=== PATIENT | female | born 1995 | race Two or more races ===

== ENCOUNTER 2022-09-13 14:12 | Emergency (ER) | payer OTHER, MEDICAID, SELFPAY ==
[2022-09-13 14:22] VITALS: BP 126/85; PULSE 68; RESP 16; TEMP 36.8; O2SAT 99; BMI 37.4
--- NOTE | 2022-09-13 14:24 | ED_ITS ---
HPI - General Adult General Chief complaint: Abdominal Pain <CATHERINE Nguyen Last Filed: 09/13/22 14:25> Stated complaint: Stomach Pain Vomiting <CATHERINE Nguyen Last Filed: 09/13/22 14:25> Time Seen by Provider: 09/13/22 17:06 <CATHERINE Nguyen - Last Filed: 09/13/22 14:25> Source: patient <CATHERINE Antunez Last Filed: 09/13/22 18:00> Mode of arrival: ambulatory <CATHERINE Antunez Last Filed: 09/13/22 18:00> Limitations: no limitations <CATHERINE Antunez Last Filed: 09/13/22 18:00> History of Present Illness HPI narrative: 27 yo female presents to the ER for evaluation of epigastric abdominal pain, nausea, vomiting and diarrhea that started when she woke up this morning. She had shrimp and broccoli last night, felt well when she went to bed. Today when she woke up she had nausea, 1 episode of vomiting and several episodes of watery, nonbloody diarrhea. She also had some intermittent upper abdominal burning pains which have improved throughout the day. She has not tried to take anything by mouth since this morning. No fever or chills. No URI symptoms. No known sick contacts. <CATHERINE Antunez - Last Filed: 09/13/22 18:00> MD complaint: N/V/D <CATHERINE Antunez Last Filed: 09/13/22 18:00> Onset (ago): hour(s) <CATHERINE Antunez Last Filed: 09/13/22 18:00> Location: abdomen (epigastric) <CATHERINE Antunez Last Filed: 09/13/22 18:00> Radiation: non-radiation <CATHERINE Antunez Last Filed: 09/13/22 18:00> Severity: moderate <CATHERINE Antunez Last Filed: 09/13/22 18:00> Quality: burning and aching <CATHERINE Antunez Last Filed: 09/13/22 18:00> Pain Consistency: intermittent <CATHERINE Antunez Last Filed: 09/13/22 18:00> Relieving factors: none <CATHERINE Antunez Last Filed: 09/13/22 18:00> Exacerbating factors: none <CATHERINE Antunez Last Filed: 09/13/22 18:00> Associated symptoms: loss of appetite, malaise, nausea/vomiting and weakness <CATHERINE Antunez Last Filed: 09/13/22 18:00> Treatments prior to arrival: none <CATHERINE Antunez Last Filed: 09/13/22 18:00> Related Data Home medications: Previous Rx's Medication Instructions Recorded ondansetron 4 mg disintegrating 4 mg PO Q8H PRN nausea and 09/13/22 tablet vomiting #10 tabs <CATHERINE Nguyen Last Filed: 09/13/22 14:25> Allergies/adverse reactions: Allergies Allergy/AdvReac Type Severity Reaction Status Date / Time No Known Allergies Allergy Unverified 02/13/20 17:41 [No Known Allergies*] <CATHERINE Nguyen Last Filed: 09/13/22 14:25> Review of Systems Review of Systems: Yes all other systems are reviewed and are negative <CATHERINE Antunez Last Filed: 09/13/22 18:00> [facility] Social History Social History: Social History Advance Directives: No Advance Directives Information Provided: No <CATHERINE Nguyen Last Filed: 09/13/22 14:25> Physical Exam ED Vital Signs: Vital Signs - 24 hr 09/13/22 14:22 Temperature 98.2 F Pulse Rate 68 Respiratory Rate 16 Blood Pressure 126/85 Pulse Oximetry 99 Oxygen Delivery Method Room Air BMI result Body Mass Index 37.4 <CATHERINE Nguyen Last Filed: 09/13/22 14:25> Vital Signs - 24 hr 09/13/22 14:22 Temperature 98.2 F Pulse Rate 68 Respiratory Rate 16 Blood Pressure 126/85 Pulse Oximetry 99 Oxygen Delivery Method Room Air BMI result Body Mass Index 37.4 <CATHERINE Antunez Last Filed: 09/13/22 18:00> Appearance: Alert. Oriented X3. No acute distress. Head: normocephalic, atraumatic. Eyes: Pupils equal, round and reactive to light. ENT: Pharynx normal. No tonsillar swelling or exudate. Neck: Normal inspection. Neck supple. CVS: Normal heart rate and rhythm. Pulses normal. Respiratory: No respiratory distress. Breath sounds normal. Abdomen: Soft and nontender. No rebound or guarding. +BS x4 Skin: Skin warm and dry. Normal skin color. Normal skin turgor. No rashes. Extremities: No lower extremity edema. No joint swelling. Neuro/psych: Oriented X 3. No motor deficit. No sensory deficit. CN II-XII intact. Normal speech and cognition. <CATHERINE Antunez - Last Filed: 09/13/22 18:00> Course Course Course Narrative: This is an RME: Additional HPI, ROS, PE not included below will be deferred to primary provider. 19-year-old female male presents with severe sudden epigastric pain <CATHERINE Nguyen - Last Filed: 09/13/22 14:25> Medications Administered Discontinued Medications Generic Name Dose Route Start Last Admin Trade Name Freq PRN Reason Stop Dose Admin Al Hydroxide/Mg Hydroxide 30 ml 09/13/22 17:06 09/13/22 17:36 Magnesium Hydrox/Alum Hydrox 30 Ml Oral.Susp PO 09/13/22 17:07 30 ml ONCE ONE Administration Famotidine 20 mg 09/13/22 17:06 09/13/22 17:36 Famotidine 20 Mg Tablet PO 09/13/22 17:07 20 mg ONCE ONE Administration Lidocaine HCl 15 ml 09/13/22 17:06 09/13/22 17:36 Lidocaine Hcl Viscous 2 % 15 Ml Solution MUCOUS MEM 09/13/22 17:07 15 ml ONCE ONE Administration Ondansetron HCl 4 mg 09/13/22 17:06 09/13/22 17:37 Ondansetron Odt 4 Mg Tab.Rapdis TRANSLINGU 09/13/22 17:07 4 mg ONCE ONE Administration <CATHERINE Nguyen - Last Filed: 09/13/22 14:25> Medications Administered Discontinued Medications Generic Name Dose Route Start Last Admin Trade Name Freq PRN Reason Stop Dose Admin Al Hydroxide/Mg Hydroxide 30 ml 09/13/22 17:06 09/13/22 17:36 Magnesium Hydrox/Alum Hydrox 30 Ml Oral.Susp PO 09/13/22 17:07 30 ml ONCE ONE Administration Famotidine 20 mg 09/13/22 17:06 09/13/22 17:36 Famotidine 20 Mg Tablet PO 09/13/22 17:07 20 mg ONCE ONE Administration Lidocaine HCl 15 ml 09/13/22 17:06 09/13/22 17:36 Lidocaine Hcl Viscous 2 % 15 Ml Solution MUCOUS MEM 09/13/22 17:07 15 ml ONCE ONE Administration Ondansetron HCl 4 mg 09/13/22 17:06 09/13/22 17:37 Ondansetron Odt 4 Mg Tab.Rapdis TRANSLINGU 09/13/22 17:07 4 mg ONCE ONE Administration <CATHERINE Antunez - Last Filed: 09/13/22 18:00> Medical Decision Making Medical Decision Making MDM Narrative: 27 yo female presenting to the ER for evaluation of N/V/D and epigastric abd pain that started today after eating shrimp last night. No blood in her stool. No current pain. VSS and lab workup is unremarkable. She was given zofran, GI cocktail and was able to tolerate PO. No episodes of diarrhea in the ER. She is feeling better. Most likely gastroenteritis, stable for d/c home with antiemetics and supportive care. <CATHERINE Antunez - Last Filed: 09/13/22 18:00> Differential Diagnosis Differential Diagnoses: The differential diagnosis associated with the presentation includes <CATHERINE Antunez - Last Filed: 09/13/22 18:00> viral gastroenteritis, bacterial gastroenteritis, covid, flu, food poisoning, gastritis, PUD, cdiff <CATHERINE Antunez - Last Filed: 09/13/22 18:00> Lab Data [facility] Lab Attestation statement: I reviewed the patient's lab results. <CATHERINE Antunez - Last Filed: 09/13/22 18:00> Result Diagrams: 09/13/22 15:30 09/13/22 15:30 <CATHERINE Nguyen - Last Filed: 09/13/22 14:25> Labs: Lab Results 04/18/23 04/18/23 04/18/23 Range/Units 15:23 15:23 15:23 WBC (4.8-10.8) X10*3/uL RBC (4.20-5.50) X10*6/uL Hgb (12.0-16.0) g/dl Hct (37.0-47.0) % MCV (80.0-98.0) fL MCH (27.0-33.0) pg MCHC (31.0-35.0) g/dl RDW (11.0-16.0) % Plt Count (160-400) X10*3/uL MPV (9.4-12.3) fL Immature Gran % (Auto) (0.0-0.4) % Neut % (Auto) (45-73) % Lymph % (Auto) (20-40) % [place] % (Auto) (2-11) % Eos % (Auto) (0-4) % Baso % (Auto) (0-2) % Lymph # (Auto) (1.2-4.9) X10*3/uL [place] # (Auto) (0.1-1.2) X10*3/uL Eos # (Auto) (0.0-0.4) X10*3/uL Baso # (Auto) (0.0-0.2) X10*3/uL Abs Immat Gran (auto) (0.00-0.03) X10*3/uL Absolute Neuts (auto) (2.0-8.3) x10*3/uL Absolute Nucleated RBC (0.0-0.012) X10*3/uL Nucleated RBC % (auto) (0.0-0.2) /100WBC Sodium (135-145) mmol/L Potassium (3.3-5.1) mmol/L Chloride (96-108) mmol/L Carbon Dioxide (22-29) mmol/L Anion Gap (12-20) BUN (9-16) mg/dL Creatinine (0.5-1.4) mg/dL Estim Creat Clear Calc Estimated GFR Random Glucose (60-115) mg/dL Calcium (8.4-10.2) mg/dL Magnesium (1.6-2.6) mg/dL Total Bilirubin (0.0-1.0) mg/dL AST (5-31) U/L ALT (0-31) U/L Alkaline Phosphatase (39-117) U/L Total Protein (6.5-8.0) g/dL Albumin (3.5-5.0) g/dL Lipase (8-78) U/L Urine Color Yellow Urine Appearance Clear Urine pH 5.5 (5.0-9.0) Ur Specific Miracle 1.015 (1.005-1.025) Urine Protein Negative (Neg-Trace) mg/dL Urine Glucose (UA) Negative (Negative) mg/dL Urine Ketones Negative (Negative) mg/dL Urine Blood Trace H (Negative) Urine Nitrite Negative (Negative) Ur Leukocyte Esterase Trace H (Negative) Urine RBC 0-2 (0-2) /HPF Urine WBC 0-5 (0-5) /HPF Ur Squamous Epith Cells 0-2 (0-2) /HPF Urine Bacteria None Seen (None Seen) Hyaline Casts 0-2 (0-2) /LPF Urine Test NEGATIVE (NEGATIVE) COVID-19 (MICHEL) Negative (Negative) COVID-19 Clin Com See Note 09/13/22 09/13/22 Range/Units 15:30 15:30 WBC 8.6 (4.8-10.8) X10*3/uL RBC 4.34 (4.20-5.50) X10*6/uL Hgb 13.8 (12.0-16.0) g/dl Hct 39.5 (37.0-47.0) % MCV 91.0 (80.0-98.0) fL MCH 31.8 (27.0-33.0) pg MCHC 34.9 (31.0-35.0) g/dl RDW 12.4 (11.0-16.0) % Plt Count 227 (160-400) X10*3/uL MPV 11.7 (9.4-12.3) fL Immature Gran % (Auto) 0.2 (0.0-0.4) % Neut % (Auto) 74.8 H (45-73) % Lymph % (Auto) 19.7 L (20-40) % [place] % (Auto) 3.8 (2-11) % Eos % (Auto) 1.3 (0-4) % Baso % (Auto) 0.2 (0-2) % Lymph # (Auto) 1.7 (1.2-4.9) X10*3/uL [place] # (Auto) 0.3 (0.1-1.2) X10*3/uL Eos # (Auto) 0.1 (0.0-0.4) X10*3/uL Baso # (Auto) 0.0 (0.0-0.2) X10*3/uL Abs Immat Gran (auto) 0.02 (0.00-0.03) X10*3/uL Absolute Neuts (auto) 6.4 (2.0-8.3) x10*3/uL Absolute Nucleated RBC 0.000 (0.0-0.012) X10*3/uL Nucleated RBC % (auto) 0.0 (0.0-0.2) /100WBC Sodium 139 (135-145) mmol/L Potassium 4.0 (3.3-5.1) mmol/L Chloride 106 (96-108) mmol/L Carbon Dioxide 24 (22-29) mmol/L Anion Gap 13 (12-20) BUN 12 (9-16) mg/dL Creatinine 0.59 (0.5-1.4) mg/dL Estim Creat Clear Calc 179.9 Estimated GFR > 60 Random Glucose 80 (60-115) mg/dL Calcium 9.3 (8.4-10.2) mg/dL Magnesium 1.7 (1.6-2.6) mg/dL Total Bilirubin 0.7 (0.0-1.0) mg/dL AST 15 (5-31) U/L ALT 12 (0-31) U/L Alkaline Phosphatase 33 L (39-117) U/L Total Protein 7.9 (6.5-8.0) g/dL Albumin 4.5 (3.5-5.0) g/dL Lipase 28 (8-78) U/L Urine Color Urine Appearance Urine pH (5.0-9.0) Ur Specific Miracle (1.005-1.025) Urine Protein (Neg-Trace) mg/dL Urine Glucose (UA) (Negative) mg/dL Urine Ketones (Negative) mg/dL Urine Blood (Negative) Urine Nitrite (Negative) Ur Leukocyte Esterase (Negative) Urine RBC (0-2) /HPF Urine WBC (0-5) /HPF Ur Squamous Epith Cells (0-2) /HPF Urine Bacteria (None Seen) Hyaline Casts (0-2) /LPF Urine Test (NEGATIVE) COVID-19 (MICHEL) (Negative) COVID-19 Clin Com <CATHERINE Nguyen - Last Filed: 09/13/22 14:25> Lab Results 09/13/22 09/13/22 09/13/22 Range/Units 15:23 15:23 15:23 WBC (4.8-10.8) X10*3/uL RBC (4.20-5.50) X10*6/uL Hgb (12.0-16.0) g/dl Hct (37.0-47.0) % MCV (80.0-98.0) fL MCH (27.0-33.0) pg MCHC (31.0-35.0) g/dl RDW (11.0-16.0) % Plt Count (160-400) X10*3/uL MPV (9.4-12.3) fL Immature Gran % (Auto) (0.0-0.4) % Neut % (Auto) (45-73) % Lymph % (Auto) (20-40) % [place] % (Auto) (2-11) % Eos % (Auto) (0-4) % Baso % (Auto) (0-2) % Lymph # (Auto) (1.2-4.9) X10*3/uL [place] # (Auto) (0.1-1.2) X10*3/uL Eos # (Auto) (0.0-0.4) X10*3/uL Baso # (Auto) (0.0-0.2) X10*3/uL Abs Immat Gran (auto) (0.00-0.03) X10*3/uL Absolute Neuts (auto) (2.0-8.3) x10*3/uL Absolute Nucleated RBC (0.0-0.012) X10*3/uL Nucleated RBC % (auto) (0.0-0.2) /100WBC Sodium (135-145) mmol/L Potassium (3.3-5.1) mmol/L Chloride (96-108) mmol/L Carbon Dioxide (22-29) mmol/L Anion Gap (12-20) BUN (9-16) mg/dL Creatinine (0.5-1.4) mg/dL Estim Creat Clear Calc Estimated GFR Random Glucose (60-115) mg/dL Calcium (8.4-10.2) mg/dL Magnesium (1.6-2.6) mg/dL Total Bilirubin (0.0-1.0) mg/dL AST (5-31) U/L ALT (0-31) U/L Alkaline Phosphatase (39-117) U/L Total Protein (6.5-8.0) g/dL Albumin (3.5-5.0) g/dL Lipase (8-78) U/L Urine Color Yellow Urine Appearance Clear Urine pH 5.5 (5.0-9.0) Ur Specific Miracle 1.015 (1.005-1.025) Urine Protein Negative (Neg-Trace) mg/dL Urine Glucose (UA) Negative (Negative) mg/dL Urine Ketones Negative (Negative) mg/dL Urine Blood Trace H (Negative) Urine Nitrite Negative (Negative) Ur Leukocyte Esterase Trace H (Negative) Urine RBC 0-2 (0-2) /HPF Urine WBC 0-5 (0-5) /HPF Ur Squamous Epith Cells 0-2 (0-2) /HPF Urine Bacteria None Seen (None Seen) Hyaline Casts 0-2 (0-2) /LPF Urine Test NEGATIVE (NEGATIVE) COVID-19 (IMCHEL) Negative (Negative) COVID-19 Clin Com See Note 09/13/22 09/13/22 Range/Units 15:30 15:30 WBC 8.6 (4.8-10.8) X10*3/uL RBC 4.34 (4.20-5.50) X10*6/uL Hgb 13.8 (12.0-16.0) g/dl Hct 39.5 (37.0-47.0) % MCV 91.0 (80.0-98.0) fL MCH 31.8 (27.0-33.0) pg MCHC 34.9 (31.0-35.0) g/dl RDW 12.4 (11.0-16.0) % Plt Count 227 (160-400) X10*3/uL MPV 11.7 (9.4-12.3) fL Immature Gran % (Auto) 0.2 (0.0-0.4) % Neut % (Auto) 74.8 H (45-73) % Lymph % (Auto) 19.7 L (20-40) % [place] % (Auto) 3.8 (2-11) % Eos % (Auto) 1.3 (0-4) % Baso % (Auto) 0.2 (0-2) % Lymph # (Auto) 1.7 (1.2-4.9) X10*3/uL [place] # (Auto) 0.3 (0.1-1.2) X10*3/uL Eos # (Auto) 0.1 (0.0-0.4) X10*3/uL Baso # (Auto) 0.0 (0.0-0.2) X10*3/uL Abs Immat Gran (auto) 0.02 (0.00-0.03) X10*3/uL Absolute Neuts (auto) 6.4 (2.0-8.3) x10*3/uL Absolute Nucleated RBC 0.000 (0.0-0.012) X10*3/uL Nucleated RBC % (auto) 0.0 (0.0-0.2) /100WBC Sodium 139 (135-145) mmol/L Potassium 4.0 (3.3-5.1) mmol/L Chloride 106 (96-108) mmol/L Carbon Dioxide 24 (22-29) mmol/L Anion Gap 13 (12-20) BUN 12 (9-16) mg/dL Creatinine 0.59 (0.5-1.4) mg/dL Estim Creat Clear Calc 179.9 Estimated GFR > 60 Random Glucose 80 (60-115) mg/dL Calcium 9.3 (8.4-10.2) mg/dL Magnesium 1.7 (1.6-2.6) mg/dL Total Bilirubin 0.7 (0.0-1.0) mg/dL AST 15 (5-31) U/L ALT 12 (0-31) U/L Alkaline Phosphatase 33 L (39-117) U/L Total Protein 7.9 (6.5-8.0) g/dL Albumin 4.5 (3.5-5.0) g/dL Lipase 28 (8-78) U/L Urine Color Urine Appearance Urine pH (5.0-9.0) Ur Specific Miracle (1.005-1.025) Urine Protein (Neg-Trace) mg/dL Urine Glucose (UA) (Negative) mg/dL Urine Ketones (Negative) mg/dL Urine Blood (Negative) Urine Nitrite (Negative) Ur Leukocyte Esterase (Negative) Urine RBC (0-2) /HPF Urine WBC (0-5) /HPF Ur Squamous Epith Cells (0-2) /HPF Urine Bacteria (None Seen) Hyaline Casts (0-2) /LPF Urine Test (NEGATIVE) COVID-19 (MICHEL) (Negative) COVID-19 Clin Com <CATHERINE Antunez - Last Filed: 09/13/22 18:00> External Record Review External record reviewed: Prior outpatient labs and Prior outpatient radiology <CATHERINE Antunez - Last Filed: 09/13/22 18:00> Tests considered The following testing was considered but not selected: Ct scan considered however PE is benign, nontender abd GI panel considered however no stool in the several hours patient was in the ER <CATHERINE Antunez - Last Filed: 09/13/22 18:00> Prescription Management I considered prescription management with: Antibiotic and Other (antiemetic) <CATHERINE Antunez - Last Filed: 09/13/22 18:00> Critical Care Time Critical Care Time Critical Care Time: No <CATHERINE Antunez Last Filed: 09/13/22 18:00> Discharge Plan Discharge Clinical Impression: Gastroenteritis <CATHERINE Nguyen Last Filed: 09/13/22 14:25> Patient Disposition: Home, Self-Care <CATHERINE Nguyen Last Filed: 09/13/22 14:25> Instructions: Gastroenteritis (DC) <CATHERINE Nguyen Last Filed: 09/13/22 14:25> Additional Instructions: You lab workup today was unremarkable. Your urine test was negative for infection and . You most likely have a viral GI bug also known as gastroenteritis. Treatment is supportive care, symptoms usually resolve on their own in 48-72 hours. Recommend rest and plenty of oral hydration. Stick to a bland diet like soup and toast while you are not feeling well. Take the prescribed medication as needed for nausea. Recommend over the counter Pepto Bismol or Imodium for upset stomach and diarrhea. Follow up with your doctor as needed. If you develop new or worsening symptoms call 911 or come back to the ER for further evaluation. <CATHERINE Nguyen - Last Filed: 09/13/22 14:25> Prescriptions: New ondansetron 4 mg tablet,disintegrating 4 mg PO Q8H PRN (Reason: nausea and vomiting) Qty: 10 0RF <CATHERINE Nguyen - Last Filed: 09/13/22 14:25> Stand Alone Forms: Work/School Release <CATHERINE Nguyen - Last Filed: 09/13/22 14:25>
[2022-09-13 15:36] LABS: MANUAL DIFF FLAG NO
[2022-09-13 15:39] LABS: Appearance Urine Clear; Color Urine Yellow; Glucose Urine UA Negative (Negative); Leukocyte Esterase Urine Trace (Negative); Nitrite Urine Negative (Negative); PH 5.5 (5.0-9.0); Specific Gravity - Urine 1.015 (1.005-1.025); UMIC TRIGGER UACC YES; Urine Blood Trace (Negative); Urine Ketones Negative (Negative); Urine Protein Negative (Neg-Trace)
[2022-09-13 15:41] LABS: Bacteria Urine None Seen (None Seen); Hyaline Casts Urine 0-2 /LPF (0-2); RBC Urine 0-2 /HPF (0-2); Squamous Epithelial Cell Urine 0-2 /HPF (0-2); UPreg QC Valid YES; Urine Pregnancy NEGATIVE (NEGATIVE); WBC Urine 0-5 /HPF (0-5)
[2022-09-13 16:01] LABS: Basophils Percent Auto 0.2 % (0-2); Eosinophils Absolute Auto 0.1 X10*3/uL (0.0-0.4); Eosinophils Percent Auto 1.3 % (0-4); Hematocrit 39.5 % (37.0-47.0); Hemoglobin 13.8 g/dl (12.0-16.0); Imm Gran Abs Auto 0.02 X10*3/uL (0.00-0.03); Imm Gran Pct Auto 0.2 % (0.0-0.4); Lymphocytes Absolute Auto 1.7 X10*3/uL (1.2-4.9); Lymphocytes Percent Auto 19.7 % (20-40); Mean Corpuscular HGB Conc 34.9 g/dl (31.0-35.0); Mean Corpuscular Hemoglobin 31.8 pg (27.0-33.0); Mean Platelet Volume 11.7 fL (9.4-12.3); Monocytes Absolute Auto 0.3 X10*3/uL (0.1-1.2); Monocytes Percent Auto 3.8 % (2-11); Neutrophils Absolute Auto 6.4 x10*3/uL (2.0-8.3); Neutrophils Percent Auto 74.8 % (45-73); Platelet Count 227 X10*3/uL (160-400); Red Blood Count 4.34 X10*6/uL (4.20-5.50); Red Cell Distribution Width 12.4 % (11.0-16.0); White Blood Count 8.6 X10*3/uL (4.8-10.8)
[2022-09-13 16:02] LABS: Alanine Aminotransferase 12 U/L (0-31); Albumin Level 4.5 g/dL (3.5-5.0); Alkaline Phosphatase 33 U/L (39-117); Anion Gap 13 (12-20); Aspartate Amino Transferase 15 U/L (5-31); Bilirubin Total 0.7 mg/dL (0.0-1.0); Blood Urea Nitrogen 12 mg/dL (9-16); Calcium 9.3 mg/dL (8.4-10.2); Carbon Dioxide 24 mmol/L (22-29); Chloride 106 mmol/L (96-108); Creatinine Clr Calc Pharmacy 179.9; Estimated Glomerular Filt Rate > 60; Glucose Random 80 mg/dL (60-115); Lipase 28 U/L (8-78); Magnesium 1.7 mg/dL (1.6-2.6); Sodium 139 mmol/L (135-145); Total Protein 7.9 g/dL (6.5-8.0)
[2022-09-13 16:14] LABS: COVID-19 Test Negative (Negative); IDNOW Serial# BCCEAD1C
[2022-09-13] MEDS: Famotidine 20 MG TABLET PO (17:36)
[2022-09-13] MEDS: Magnesium Hydrox/Alum Hydrox 30 ML ORAL.SUSP PO (17:36)
[2022-09-13] MEDS: Lidocaine HCl Viscous 2 % 15 ML SOLUTION MUCOUS MEM (17:36)
[2022-09-13] MEDS: Ondansetron ODT 4 MG TAB.RAPDIS TRANSLINGU (17:37)
== END 2022-09-13 18:07 | disposition home or self-care (01) ==
PROVIDERS: Physician Assistant; Emergency Provider Emergency Medicine Emergency Medical Services
DX: K52.9 Noninfective gastroenteritis and colitis, unspecified (principal); Z20.822 Contact with and (suspected) exposure to COVID-19; R10.13 Epigastric pain
CPT/HCPCS: 80053; 81001; 81025; 83690; 83735; 85025; 87635; 99282; 99283

== ENCOUNTER 2023-07-20 22:07 | Emergency (ER) | payer OTHER, SELFPAY ==
--- NOTE | ~2023-07-20 | XR_ITS ---
EXAMINATION: XR CHEST CLINICAL INFORMATION: Cough. COMPARISON: None available. TECHNIQUE: 2 views of the chest were obtained. FINDINGS: No significant abnormality is noted involving the heart, lungs, mediastinum, bony thorax or soft tissues. XR/XR chest 2V IMPRESSION: Unremarkable chest examination.
[2023-07-20 22:26] VITALS: BP 130/83; PULSE 90; RESP 18; TEMP 36.8; O2SAT 99; BMI 40.0
[2023-07-20 23:11] LABS: Influenza A PCR NEGATIVE (Negative); Influenza B PCR NEGATIVE (Negative); Resp Syncy Virus RNA Qual PCR NEGATIVE (Negative); SARS COV2 PCR INHOUSE NEGATIVE (Negative)
[2023-07-21 00:20] VITALS: BP 139/85; PULSE 93; RESP 17; TEMP 36.8; O2SAT 99
--- NOTE | 2023-07-21 01:04 | ED.URI ---
HPI - URI/Sore Throat General Chief Complaint: Upper Respiratory Symptoms Stated Complaint: sob,fever,cough Time Seen by Provider: 07/21/23 00:39 Source: patient Mode of arrival: ambulatory Limitations: no limitations History of Present Illness HPI Narrative: History of sleep apnea otherwise healthy works in [employer] has been congested since yesterday with clear discharge body aches headache no other family members having dry cough patient had COVID/flu/RSV test prior to my evaluation which was negative chest x-ray also negative for infiltrate Related Data Previous Rx's Medication Instructions Recorded ondansetron 4 mg disintegrating 4 mg PO Q8H PRN nausea and 09/13/22 tablet vomiting #10 tabs cqwlvdfwkp-ifybxsdngfjgc-ulavntbn 1 tab PO Q6H PRN haeadace #20 tabs 07/21/23 50 mg-325 mg-40 mg tablet codeine 10 mg-guaifenesin 100 mg/5 10 ml PO Q6H PRN cough #237 mL 07/21/23 mL oral liquid ibuprofen 600 mg tablet 600 mg PO Q6H PRN fever or pain 07/21/23 #30 tabs Allergies Allergy/AdvReac Type Severity Reaction Status Date / Time No Known Allergies Allergy Verified 07/20/23 22:25 [No Known Allergies*] Review of Systems Review of Systems: Yes all other systems are reviewed and are negative [facility] Social History Social History Advance Directives: No Advance Directives Information Provided: Yes Physical Exam Vital Signs: Vital Signs: Last Vital Signs Temp 98.2 F 07/21/23 00:20 Pulse 93 07/21/23 00:20 Resp 17 07/21/23 00:20 BP 139/85 07/21/23 00:20 Pulse Ox 99 07/21/23 00:20 O2 Del Method Room Air 07/21/23 00:20 BMI result Body Mass Index 40.0 Appearance: Alert. Oriented X3. No acute distress. ENT: Pharynx normal. Oral Mucosa moist clear nasal discharge Neck: Normal inspection. Neck supple. CVS: Normal heart rate and rhythm. Pulses normal. Respiratory: No respiratory distress. Equal air entry bilateral, no wheezing/rales/rhonchi Skin: Skin warm and dry. Normal skin color. Normal skin turgor. Extremities: No lower extremity edema. Neuro: Oriented X 3. Medical Decision Making Differential Diagnosis Differential Diagnoses: The differential diagnosis associated with the presentation includes Viral bronchitis/COVID/RSV/flu Lab Data MDM Lab Attestation statement: I reviewed the patient's lab results. Labs: Lab Results 07/20/23 Range/Units 22:30 Influenza Type A (PCR) NEGATIVE (Negative) Influenza Type B (PCR) NEGATIVE (Negative) RSV RNA Qual (PCR) NEGATIVE (Negative) SARS-CoV-2 RNA (RT-PCR) NEGATIVE (Negative) Independent Interpretation I performed an independent interpretation of an: Plain X-Ray Radiology Impression Discussion of test interpretation with radiology: I have reviewed the radiologist's reading. Discharge Plan Discharge Clinical Impression: Upper respiratory infection Patient Disposition: Home, Self-Care Instructions: Upper Respiratory Infection (ED) Additional Instructions: Drink plenty of fluids Cough syrup as prescribed Tylenol/Motrin for headache/body aches Follow with PCP if not better Prescriptions: New hipugoeedf-ljutuqyhuummm-cvsu 50-325-40 mg tablet 1 tab PO Q6H PRN (Reason: haeadace) Qty: 20 0RF codeine-guaifenesin 10-100 mg/5 mL liquid 10 ml PO Q6H PRN (Reason: cough) Qty: 237 0RF ibuprofen 600 mg tablet 600 mg PO Q6H PRN (Reason: fever or pain) Qty: 30 0RF No Action ondansetron 4 mg tablet,disintegrating 4 mg PO Q8H PRN (Reason: nausea and vomiting) Qty: 10 0RF Stand Alone Forms: Work/School Release
[2023-07-21] MEDS: guaiFEN/Codeine SF 200/20/10ML 10 ML LIQUID PO (01:26)
[2023-07-21] MEDS: Butalb/Acetamin/Caff 50/325/40 TABLET 1 TAB PO (01:26)
== END 2023-07-21 01:29 | disposition home or self-care (01) ==
PROVIDERS: Emergency Provider Internal Medicine
DX: J06.9 Acute upper respiratory infection, unspecified (principal); R05.9 Cough, unspecified; Z11.52 Encounter for screening for COVID-19; Z20.828 Contact with and (suspected) exposure to other viral communicable diseases
CPT/HCPCS: 0241U; 71046; 99283

== ENCOUNTER → 2023-09-18 12:38 | Outpatient (BNVA) | payer MEDICAID, SELFPAY | PROVIDERS: Visit Provider Physician Assistant Surgical ==

== ENCOUNTER 2023-11-01 08:32 | Outpatient (AMB) | payer OTHER, SELFPAY ==
--- NOTE | 2023-11-01 10:51 | MHC.OFFVISWM ---
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: Details: Start time: 11.06am, End time: 11.51am ?I spent 40 minutes speaking with the patient on the phone plus an additional 5 minutes reviewing and updating records for a total of 45 minutes HPI Comments Details: Previous weight loss efforts: [employer]bal[employer], self diet and exercise Wakes up: 6am, Sleeps: 11pm Breakfast: 7am (Muffin, bagel) Lunch: 11am (sandwich, chicken) Dinner: 6-7pm (rice, beans, pasta) Snacks: none Exercise: none Fluids: Coffee (1 cup/day with cream and sugar), tea: none, soda: one per day (Pepsi), juice: 3/wk, ETOH: none PFSH Medical History (Updated 11/01/23 @ 10:53 by Maycol Perry MD) CPAP (continuous positive airway pressure) dependence Morbid obesity Telehealth Telehealth Telehealth Platform: Telephone Location of provider rendering services: practice address Location of patient: address on file Patient Identification confirmed using: Name, : Yes Telehealth method: voice only Patient verbally consented to treatment: Yes Patient verbally consented to billing insurance company: Yes Patient informed of any privacy concerns related to visit: Yes Minutes spent on Phone/Video with Pt.: 45 Assessment & Plan Assessment & Plan (1) Morbid obesity: Code(s): E66.01 - Morbid (severe) obesity due to excess calories Category: Medical Plan: 1.? Plan for lap sleeve gastrectomy. If diaphragmatic or ventral hernias are present at time of surgery, these will be repaired laparoscopically as well. Risks and complications include possible conversion to an open procedure, anastomotic leak, bleeding requiring transfusion, small bowel obstruction, , DVT and pulmonary embolism, cardiac, or pulmonary complications, as fci complications such as anastomotic ulcer, insufficient weight loss and vitamin deficiencies. I emphasized the importance of close follow-up, adherence to instructions and good communication. 2. You will receive a link of our software hoang to generate an individualized nutritional and exercise plan specific for you. Please send me a screenshot of the plans you will generate Meal to include lean meat (beef, fish, pork, turkey, chicken), or anguillan yogurt, or egg whites, or beans with a salad with olive oil and fruits (berries, pears, apples, kiwi). Avoid salt, breads, potatoes, rice, pasta, desserts. ?3. If you choose shakes, each shake would be drunk slowly, like coffee in a period of 2 hours. ?4. If you choose bars, cut each bar in 4 pieces and eat each piece in 30min ?to make each bar last 2 hours. ?5. I emphasized the importance of measuring accurately the food portion and measure it when serving the food in plate ?6. The meal portions include a specific number of forks of meat and salad. You always eat the meat portion but you can replace up to half of salad/vegetables portion with rice, potatoes or pasta, or a fruit ?if you like. The less you do it the better weight loss will be. ?7. One full-size fork is what it can be scooped on the fork without falling aside and not what can be bit with the fork. Use regular forks like those you find in a typical restaurant. ?8.? Please send me weight measurements as soon as possible and then once a week. Always include your diet and exercise plan. 9. The best choice would be to purchase a stationary bike, elliptical or treadmill at home that can track calories. Let me know if you do so I can give you an exercise plan. ?10.?It is important of avoiding and for at least 18 months postoperatively and has been discussed at the infosession. ?11. Goal is to lose at least 1.5-2lbs per week ?12. Goal to lose 10% of your weight before surgery, which is about 25lbs. Ultimate weight goal: 230lbs before surgery 13. Please follow the diet plan exactly without any change. If you don't like something about the plan or you feel hungry you need to communicate with me so I can help you revise the plan. You should not change the plan yourself. 14. To be scheduled for EGD due to history of GERD. The possibility of biopsies was discussed. Patient needs to avoid use of NSAIDs and aspirin for 1 week prior to EGD. Risks of perforation and? bleeding was discussed with the patient. This will be an outpatient procedure with IV sedation. Orders: Orders Hemoglobin A1c Today E66.01 - Morbid (severe) obesity due to excess calories, Z99.89 - Dependence on other enabling machines and devices H Pylori Breath Test Today E66.01 - Morbid (severe) obesity due to excess calories, Z99.89 - Dependence on other enabling machines and devices Complete Blood Count Auto Diff Today E66.01 - Morbid (severe) obesity due to excess calories, Z99.89 - Dependence on other enabling machines and devices Vitamin B12 and Folate Today E66.01 - Morbid (severe) obesity due to excess calories, Z99.89 - Dependence on other enabling machines and devices C Reactive Protein Today E66.01 - Morbid (severe) obesity due to excess calories, Z99.89 - Dependence on other enabling machines and devices Vitamin B1 Today E66.01 - Morbid (severe) obesity due to excess calories, Z99.89 - Dependence on other enabling machines and devices US abdomen comp w elastography Today E66.01 - Morbid (severe) obesity due to excess calories, Z99.89 - Dependence on other enabling machines and devices Insulin Today E66.01 - Morbid (severe) obesity due to excess calories, Z99.89 - Dependence on other enabling machines and devices Lipid Panel Today E66.01 - Morbid (severe) obesity due to excess calories, Z99.89 - Dependence on other enabling machines and devices IRON PROFILE Today E66.01 - Morbid (severe) obesity due to excess calories, Z99.89 - Dependence on other enabling machines and devices Comprehensive Met. Panel Today E66.01 - Morbid (severe) obesity due to excess calories, Z99.89 - Dependence on other enabling machines and devices Zinc Today E66.01 - Morbid (severe) obesity due to excess calories, Z99.89 - Dependence on other enabling machines and devices Vitamin A Today E66.01 - Morbid (severe) obesity due to excess calories, Z99.89 - Dependence on other enabling machines and devices TSH reflex Free T4 Today E66.01 - Morbid (severe) obesity due to excess calories, Z99.89 - Dependence on other enabling machines and devices Ferritin Today E66.01 - Morbid (severe) obesity due to excess calories, Z99.89 - Dependence on other enabling machines and devices Vitamin D 25-OH Total Today E66.01 - Morbid (severe) obesity due to excess calories, Z99.89 - Dependence on other enabling machines and devices XR chest 2V Today E66.01 - Morbid (severe) obesity due to excess calories, Z99.89 - Dependence on other enabling machines and devices ECG 12 lead EKG Today E66.01 - Morbid (severe) obesity due to excess calories, Z99.89 - Dependence on other enabling machines and devices FL upper GI w air Today E66.01 - Morbid (severe) obesity due to excess calories, Z99.89 - Dependence on other enabling machines and devices Referrals Behavioral Health Referral E66.01 - Morbid (severe) obesity due to excess calories, Z99.89 - Dependence on other enabling machines and devices Nutrition/Dietitian Referral E66.01 - Morbid (severe) obesity due to excess calories, Z99.89 - Dependence on other enabling machines and devices
[2023-11-01 11:00] VITALS: BMI 40.0
== END 2023-11-01 11:52 | disposition home or self-care (01) ==
PROVIDERS: Visit Provider Surgery
DX: E66.01 Morbid (severe) obesity due to excess calories (principal)
CPT/HCPCS: 99204

== ENCOUNTER → 2023-11-01 08:32 | Outpatient (BNVA) | payer MEDICAID, SELFPAY | PROVIDERS: Visit Provider Surgery ==

== ENCOUNTER 2023-11-06 12:18 | Outpatient (REF) | payer OTHER, SELFPAY ==
--- NOTE | ~2023-11-06 | XR_ITS ---
EXAMINATION: XR CHEST CLINICAL INFORMATION: Morbid (severe) obesity due to excess calories COMPARISON: Chest radiograph 07/20/2023 TECHNIQUE: 2 views of the chest were obtained. FINDINGS: The lungs are adequately expanded. No focal consolidation. No pleural effusion, overt edema or pneumothorax. The cardiomediastinal silhouette is similar to prior exam. No acute osseous abnormality. XR/XR chest 2V IMPRESSION: No acute pulmonary disease.
[2023-11-06 12:35] LABS: MANUAL DIFF FLAG NO
--- NOTE | 2023-11-06 12:39 | ECG_ITS ---
Test Reason : obesity Blood Pressure : / mmHG Vent. Rate : 064 BPM Atrial Rate : 064 BPM P-R Int : 136 ms QRS Dur : 080 ms QT Int : 382 ms P-R-T Axes : 045 012 026 degrees QTc Int : 394 ms Normal sinus rhythm Normal ECG When compared with ECG of 13-JAN-2020 16:57, No significant change was found Referred By: Maycol Perry Electronically Signed By:SHANNAN JUDGE
[2023-11-06 13:20] LABS: Basophils Percent Auto 0.4 % (0-2); Eosinophils Absolute Auto 0.1 X10*3/uL (0.0-0.4); Eosinophils Percent Auto 1.4 % (0-4); Hemoglobin 12.4 g/dl (12.0-16.0); Imm Gran Abs Auto 0.05 X10*3/uL (0.00-0.03); Imm Gran Pct Auto 0.7 % (0.0-0.4); Lymphocytes Absolute Auto 1.8 X10*3/uL (1.2-4.9); Lymphocytes Percent Auto 25.7 % (20-40); Mean Corpuscular HGB Conc 35.4 g/dl (31.0-35.0); Mean Corpuscular Hemoglobin 31.8 pg (27.0-33.0); Mean Corpuscular Volume 89.7 fL (80.0-98.0); Mean Platelet Volume 11.5 fL (9.4-12.3); Monocytes Absolute Auto 0.4 X10*3/uL (0.1-1.2); Monocytes Percent Auto 5.6 % (2-11); Neutrophils Absolute Auto 4.6 x10*3/uL (2.0-8.3); Neutrophils Percent Auto 66.2 % (45-73); Platelet Count 233 X10*3/uL (160-400); Red Cell Distribution Width 12.2 % (11.0-16.0)
[2023-11-06 14:19] LABS: Alanine Aminotransferase 11 U/L (0-31); Albumin Level 4.2 g/dL (3.5-5.0); Alkaline Phosphatase 39 U/L (39-117); Anion Gap 10 (12-20); Aspartate Amino Transferase 16 U/L (5-31); Bilirubin Total 0.5 mg/dL (0.0-1.0); Blood Urea Nitrogen 10 mg/dL (9-16); C Reactive Protein 1.51 mg/dL (< or = 0.50); Calcium 9.5 mg/dL (8.4-10.2); Carbon Dioxide 23 mmol/L (22-29); Chloride 109 mmol/L (96-108); Cholesterol 142 mg/dL (<200); Estimated Glomerular Filt Rate > 60; Glucose Random 91 mg/dL (60-115); HDL Cholesterol 29 mg/dL (>40); Iron 77 mcg/dL (30-160); LDL Cholesterol Calculated 95 mg/dL (<100); Percent Iron Saturation 30 % (15-50); Potassium 3.7 mmol/L (3.3-5.1); Sodium 138 mmol/L (135-145); Total Iron Binding Capacity 253 mcg/dL (228-428); Total Protein 8.1 g/dL (6.5-8.0); Triglycerides 91 mg/dL (<150); Unsaturated Iron Binding 176 ug/dL
[2023-11-06 14:33] LABS: Ferritin 79 ng/mL (10-122); Insulin 30 uU/mL (2-29); TSH reflex Free T4 1.57 uIU/mL (0.32-4.0); Vitamin D 25-OH Total 29.2 ng/mL (>30)
[2023-11-06 14:43] LABS: Folate 9.4 ng/mL (> or = 4.0); Vitamin B12 410 pg/mL (200-900)
[2023-11-06 19:20] LABS: Estimated Average Glucose 82 mg/dL; Hemoglobin A1c % 4.5 % (<6.0)
[2023-11-08 17:28] LABS: Zinc 57 mcg/dL (60-130)
[2023-11-09 20:18] LABS: Vitamin A 29 mcg/dL (38-98)
[2023-11-14 15:09] LABS: Vitamin B1 11 nmol/L (8-30)
== END 2023-11-06 12:19 | disposition home or self-care (01) ==
LOC: HO.LAB 12:18
PROVIDERS: Visit Provider Surgery
DX: E66.01 Morbid (severe) obesity due to excess calories (principal); Z99.89 Dependence on other enabling machines and devices
CPT/HCPCS: 36415; 71046; 80053; 80061; 82306; 82607; 82728; 82746; 83036; 83525; 83540; 84425; 84443; 84590; 84630; 85025; 86140; 93005

== ENCOUNTER → 2023-11-06 12:39 | Outpatient (BNV) | payer OTHER, SELFPAY | PROVIDERS: Visit Provider Internal Medicine | DX: E66.9 Obesity, unspecified (principal) | CPT/HCPCS: 93010 ==

== ENCOUNTER 2023-11-20 08:58 | Outpatient (AMB) | payer OTHER, SELFPAY ==
--- NOTE | 2023-11-20 08:32 | A.OFFVIS_ITS ---
VS Expanded 11/20/23 08:35 Height 5 ft 7 in Weight 246 lb BMI 38.5 Intake Visit Reasons: (TV) F/U SWL Allergies No Known Allergies [No Known Allergies*] Allergy (Verified 11/01/23 10:52) Medication List - Last Reconciled 11/20/23 by CATHERINE Cleveland cholecalciferol (vitamin D3) 125 mcg PO DAILY vitamin A palmitate 10,000 units PO DAILY zinc gluconate 10 mg PO DAILY HPI Comments Details: Patient is a 28-year-old female who returns to the office today in follow-up for preop counseling in our Surgical weight loss program. She was initially seen on 11/01/2023 with a weight of 255.2 lb and a BMI of 40. Weight today is 246 pounds with a BMI of 38.5. She has had a 9.2 pound weight loss or 3.6 % TBWL. She is using [employer] hoang. Has no questions. Meal plan: celebrate rebuild 1 scoop in 8 oz water celebrate bar meal 9 forks protein and 9 of salad/veg celebrate bar 48 oz water Exercise plan: walking outside, not tracking calories. 2 days Not using home treadmill as calories tracker was broken [facility] Medical History (Updated 11/13/23 @ 18:13 by Maycol Perry MD) CPAP (continuous positive airway pressure) dependence Morbid obesity Telehealth Telehealth Telehealth Platform: Telephone Location of provider rendering services: practice address Location of patient: address on file Patient Identification confirmed using: Name, : Yes Telehealth method: voice only Patient verbally consented to treatment: Yes Patient verbally consented to billing insurance company: Yes Patient informed of any privacy concerns related to visit: Yes Minutes spent on Phone/Video with Pt.: 15 Assessment & Plan Assessment & Plan (1) Morbid obesity: Code(s): E66.01 - Morbid (severe) obesity due to excess calories Category: Medical Plan: Patient has been using the [employer] hoang successfully although her exercise plan is lacking due to increased work requirements. Encouraged to track calories even if she is just walking outside by using the [employer] hoang. encouraged to do her treadmill even if the calorie counting is broken. She requested resen ding her vitamin-A and zinc prescriptions to an alternative pharmacy. No other complaints. Encouraged to text weight weekly and with any questions or concerns. Return to clinic 1 month. Medications: Refilled vitamin A palmitate 10,000 units PO DAILY 60 caps 0RF E50.9 - Vitamin A deficiency, unspecified zinc gluconate 10 mg PO DAILY 100 ea 0RF E60 - Dietary zinc deficiency
[2023-11-20 08:35] VITALS: BMI 38.5
== END 2023-11-20 09:21 | disposition home or self-care (01) ==
LOC: HO.HBS 08:59
PROVIDERS: Visit Provider Physician Assistant Surgical
DX: E66.01 Morbid (severe) obesity due to excess calories (principal)
CPT/HCPCS: 99213

== ENCOUNTER → 2023-11-20 08:58 | Outpatient (BNVA) | payer OTHER, SELFPAY | PROVIDERS: Visit Provider Physician Assistant Surgical | DX: E50.9 Vitamin A deficiency, unspecified (principal); E60 Dietary zinc deficiency; E66.01 Morbid (severe) obesity due to excess calories ==

== ENCOUNTER 2023-11-20 15:46 | Outpatient (AMB) | payer OTHER, SELFPAY ==
--- NOTE | 2023-11-20 15:50 | MHC.WMTHER ---
Intake Intake Visit Reasons: (TV) BH Intake Allergies No Known Allergies [No Known Allergies*] Allergy (Verified 11/01/23 10:52) [facility] Medical History (Updated 11/13/23 @ 18:13 by Maycol Perry MD) CPAP (continuous positive airway pressure) dependence Morbid obesity Behavioral Health Assessment Weight Management Therapy Therapy Notes Details Patient is looking to have weight loss surgery to help improve her health and quality of life. Pt denied any mental health treatment, she reported some mental health struggles as a teenager. She is not in therapy and has never used drugs or alcohol. Presenting Concerns Referral Source provider Reason for referral weight loss surgery evaluation Precipitating Event obesity Living Situation At risk of losing current housing? No Satisfied with current living situation? Yes Comments Patient lives with her kids ages 8, 6, and 5, and 2 years old. as well as her boyfriend. Food/Weight/Diet Expectations of change weight loss and maintenance. History/Relationship with food Pt reported that she would work all day, skip meals, and then eat food at night before bed. She would mainly eat rice, beans, chicken. Also would eat out often, and drink soda daily about two cans a day. Large coffee everyday with 12 sugars and 8 creams. History/Relationship with weight Pt is currently at her heaviest. She reported that her weight started to fluctuate after she had children. History/Relationship with dieting Herbalife, also lost weight in the past due to depression and vomitting. meal replacements for one year and lost 100lbs (down to 130lbs). Binge Eating Do you frequently eat large amounts of food in short periods of time, not feeling physically hungry? No Do you feel out of control when you eat a large amount of food in a short period of time? No Social History Family history and relationship Patient is and has 4 children. She lives with her four children and her boyfriend. 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 Cultural/Ethnic information Legal Involvement and History Current or historical involvement with the legal system? none Education Highest grade completed did not finish high school Preferred learning style Auditory, Verbal, Learn by doing and Visual Currently enrolled in educational program? No Interested in further educational program? No Educational Interests/Skills Patient stated that she works at [employer]. Employment Employment Status Enterprise Application Analyst Wants help to find employment? No Financial Situation Describe current financial situation Occasional struggle Financial assistance? None Service Service? No Mental Health and Addiction Treatment Current/Past substance abuse? No Current/Past addictive behavior concerns? No Medical and Physical Health Summary Physical exam in the last year? Yes Pain Screening Current pain? No Pain in the last few months? Yes Medications Is the patient compliant with medications? Yes Does the patient have Dodd Guardian in place? Not applicable Does the patient use complimentary health approaches? No Trauma/Abuse History History of trauma? No Questionnaires PHQ-9 Over the last 2 weeks, how often have you been bothered by any of the following problems? 1. Little interest or pleasure in doing things: several days 2. Feeling down, depressed, or hopeless: several days 3. Trouble falling or staying asleep, or sleeping too much: nearly every day 4. Feeling tired or having little energy: several days 5. Poor appetite or overeating: nearly every day 6. Feeling bad about yourself - or that you are a failure or have let yourself or your family down: not at all 7. Trouble concentrating on things, such as reading the newspaper or watching television: several days 8. Moving or speaking so slowly that other people could have noticed. Or the opposite - being so fidgety or restless that you have been moving around a lot more than usual: several days 9. Thoughts that you would be better off or of hurting yourself in some way: not at all Total score: 11 Source: Developed by Drs. Shaun Bustos, Carolyn Knowles, Lj Green and colleagues, with an educational ashtyn from [employer]. Binge Eating Scale Group 1 A. I don't feel self-conscious about my wt. or body size when I'm with others. B. I feel concerned about how I look to others, but it normally does not make me fell disappointed with myself C. I do get self-conscious about my appearance and wt. which makes me feel disappointed in myself. D. I feel very self-conscious about my wt. and frequently I feel intense shame and disgust for myself. I try to avoid social contacts because of my self-consciousness. Response Group 1: C Group 2 A. I don't have any difficulty eating slowly in the proper manner. B. Although I seem to gobble down foods, I don't end up feeling stuffed because of eating to much. C. At times, I tend to eat quickly and then, I feel uncomfortably full afterwards. D. I have the habit of bolting down my food, without really chewing it. When this happens I usually feel uncomfortably stuffed because I've eaten to much. Response Group 2: A Group 3 A. I feel capable to control my eating urges when I want to. B. I feel like I have failed to control my eating more than the average person. C. I feel utterly helpless when it comes to feeling in control of my eating urges. D. Because I feel so helpless about controlling my eating I have become very desperate about trying to get control. Response Group 3: B Group 4 A. I don't have the habit of eating when I'm bored. B. I sometimes eat when I'm bored, but often I'm able to get busy and get my mind off food. C. I have a regular habit of eating when I'm bored, but occasionally, I can use some other activity to get my mind off eating. D. I have a strong habit of eating when I'm bored. Nothing seems to help me breath the habit. Response Group 4: A Group 5 A. I'm usually physically hungry when I eat something. B. Occasionally, I eat something on impulse even though I really am not hungry. C. I have the regular habit of eating foods, that I might not really enjoy, to satisfy a hungry feeling even though physically, I don't need the food. D. Although I'm not physically hungry, I get a hungry feeling in my mouth that only seems to be satisfied when I eat a food, like sandwich, that fills my mouth. Sometimes, when I eat the food to satisfy my mouth hunger, I then spit the food out so I won't gain weight. Response Group 5: C Group 6 A. I don't feel any guilt or self-hate after I overeat. B. After I overeat, occasionally I feel guilt or self-hate. C. Almost all the time I experience strong guilt or self-hate after I overeat. Response Group 6: B Group 7 A. I don't lose total control of my eating when dieting even after periods when I overeat. B. Sometimes when I eat a forbidden food on a diet, I feel like I blew it and eat even more. C. Frequently, I have the habit of saying to myself, I've blown it now, why not go all the way, when I overeat on a diet. When that happens I eat more. D. I have a regular habit of starting a strict diets for myself but I break the diets by going on an eating binge. My life seems to be either a feast or famine. Response Group 7: D Group 8 A. I rarely eat so much food that I feel uncomfortably stuffed afterwards. B. Usually about once a month, I each such a quantity of food, I end up feeling very stuffed. C. I have regular periods during the month when I eat large amounts of food, either at mealtime or at snacks. D. I eat so much food that I regularly feel quite uncomfortable after eating and sometimes a bit nauseous. Response Group 8: C Group 9 A. My level of calorie intake does not go up very high or go down very low on a regular basis. B. Sometimes after I overeat, I will try to reduce my caloric intake to almost nothing to compensate for the excess calories I've eaten. C. I have a regular habit of overeating during the night. It seems that my routine is not to be hungry in the morning but overeat in the evening. D. In my adult years, I have had week-long periods where I practically starve myself. This follows periods when I overeat. It seems I live a life of either feast or famine. Response Group 9: C Group 10 A. I usually am able to stop eating when I want to. I know when enough is enough. B. Every so often, I experience a compulsion to eat which I can't seem to control. C. Frequently, I experience strong urges to eat which I seem unable to control, but at other times I can control my eating urges. D. I feel incapable of controlling urges to eat. I have a fear of not being able to stop eating voluntarily. Response Group 10: C Group 11 A. I don't have any problem stopping eating when I feel full. B. I usually can stop eating when I feel full but occasionally overeat leaving me feeling uncomfortably stuffed. C. I have a problem stopping eating once I start and usually I feel uncomfortably stuffed after I eat a meal. D. Because I have a problem not being able to stop eating when I want, I sometimes have to induce vomiting to relieve my stuffed feeling. Response Group 11: A Group 12 A. I seem to eat just as much when I'm with others, Family social gatherings as when I'm by myself. B. Sometimes, when I'm with other persons, I don't eat as much as I want to eat because I'm self-conscious about my eating. C. Frequently, I eat only a small amount of food when others are present, because I'm very embarrassed about my eating. D. I feel so ashamed about overeating that I pick times to overeat when I know no one will see me. I feel like a closet eater. Response Group 12: A Group 13 A. I eat three meals a day with only an occasional between meal snack. B. I eat 3 meals a day, but I also normally snack between meals. C. When I am snacking heavily, I get in the habit of skipping regular meals. D. There are regular periods when I seem to be continually eating, with no planned meals. Response Group 13: D Group 14 A. I don't think much about trying to control unwanted eating urges. B. At least some of the time, I feel my thoughts are pre-occupied with trying to control my eating urges. C. I feel that frequently I spend much time thinking about how much I ate or about trying not to eat anymore. D. It seems to me that most of my waking hours are pre-occupied by thoughts about eating or not eating. I feel like I'm constantly struggling not to eat. Response Group 14: C Group 15 A. I don't think about food a great deal. B. I have strong craving for food but they last only for brief periods of time. C. I have days when I can't seem to think about anything else but food. D. Most of my days seem to be pre-occupied with thoughts about food. I feel like I live to eat. Response Group 15: A Group 16 A. I usually know whether or not I'm physically hungry. I take the right portion of food to satisfy me. B. Occasionally, I feel uncertain about knowing whether or not I'm physically hungry. A these times it's hard to know how much food I should take to satisfy me. C. Even though I might know how many calories I should eat, I don't have any idea what is a normal amount of food for me. Response Group 16: C Binge Eating Score: 22 Score less than 17 Minimal Risk Score between 18-26 Moderate Risk Score between 27-46 High Risk Assessment & Plan Assessment & Plan (1) Morbid obesity: Code(s): E66.01 - Morbid (severe) obesity due to excess calories (2) CPAP (continuous positive airway pressure) dependence: Code(s): Z99.89 - Dependence on other enabling machines and devices Plan Patient has no serious mental health barriers or issues. She is cleared for surgery when ready. Telehealth Telehealth Telehealth Platform: Telephone Location of provider rendering services: practice address Location of patient: address on file Patient Identification confirmed using: Name, : Yes Telehealth method: voice only Patient verbally consented to treatment: Yes Patient verbally consented to billing insurance company: Yes Patient informed of any privacy concerns related to visit: Yes Minutes spent on Phone/Video with Pt.: 45 Coding Level of Care Code Tele Psy Diag Eval (90382) Diagnoses Morbid obesity E66.01 CPAP (continuous positive airway pressure) dependence Z99.89 Time Spent (min) 45
== END 2023-11-20 16:07 | disposition home or self-care (01) ==
LOC: HO.HBST 15:46
PROVIDERS: Visit Provider Counselor Mental Health
DX: E66.01 Morbid (severe) obesity due to excess calories (principal); Z99.89 Dependence on other enabling machines and devices
CPT/HCPCS: 90791

== ENCOUNTER 2023-12-06 11:16 | Day surgery (SDC) | payer OTHER, SELFPAY ==
--- NOTE | 2023-12-04 13:17 | HO.ANESPROP2 ---
Documented by User: Meka Avendano NP 12/04/23 13:17 HPI - Anesthesia Eval Consult details Narrative: 28yo F for Upper Endoscopy PMFSH Active Problems Active Problems: All Active Problems Zinc deficiency (Acute) Vitamin A deficiency (Acute) Vitamin D deficiency (Acute) CPAP (continuous positive airway pressure) dependence (Acute) Morbid obesity (Acute) Past Medical History Medical History CPAP (continuous positive airway pressure) dependence Morbid obesity Social History Social History Patient Tobacco Use Status: Never used Tobacco Use of substances other than those prescribed or required for medical reasons: No Are you DNR?: No Advance Directives: No Advance Directives Information Provided: Yes Meds Allergies Allergy/AdvReac Type Severity Reaction Status Date / Time No Known Allergies Allergy Verified 12/06/23 11:37 [No Known Allergies*] Assessment and Plan Assessment Anesthesia Assessment: Chart Reviewed Documented by User: Kelsey Keyes MD 12/06/23 13:34 PMFSH Active Problems Active Problems: All Active Problems Zinc deficiency (Acute) Vitamin A deficiency (Acute) Vitamin D deficiency (Acute) MAYRA. Not using CPAP (continuous positive airway pressure) dependence (Acute) Morbid obesity BMI 37.7 Past Medical History Medical History CPAP (continuous positive airway pressure) dependence Morbid obesity Family History Family history of problems with anesthesia: No Surgical History History of Problems with Anesthesia: No Social History Social History Patient Tobacco Use Status: Never used Tobacco Use of substances other than those prescribed or required for medical reasons: No Are you DNR?: No Advance Directives: No Advance Directives Information Provided: Yes Meds Allergies Allergy/AdvReac Type Severity Reaction Status Date / Time No Known Allergies Allergy Verified 12/06/23 11:37 [No Known Allergies*] Exam Height,Weight and Vital Signs: Height 5 ft 7 in Weight 109.316 kg Vital Signs Temp Pulse Resp BP Pulse Ox O2 Del Method 12/06/23 13:23 97.8 F 66 16 103/75 100 Room Air Pertinent Lab Results Pertinent Lab Results: Lab Results 12/06/23 Range/Units 11:35 Urine Test NEGATIVE (NEGATIVE) Airway Mallampati Class: III (Small mouth) TM Dist: >3cm Neck ROM: Full Loose/Missing/Broken Teeth: Yes (Extraction back. Denies broken or loose teeth) Heart: RRR Lungs: CTAB Assessment and Plan Assessment Anesthesia Assessment: Anesthesia Plan Discussed and Chart Reviewed Final Anesthetic Review Family History of Problems with Anesthesia: No History of Problems with Anesthesia: No NPO: Yes ASA Class: III Final Preanesthetic Review: No Changes in Pt Med Stat, Meds/Allgs Chart Reviewed, Consent Obtained/Reviewed and Anes Risks/Benef Reviewed Patient Risk: Intermediate Procedure Risk: Low Assessment/Block/Sedation in SS: Assess/Block/Sedation-SS Anesthetic Plan Anesthetic Plan: TIVA Disposition: Standard PACU
[2023-12-06 11:30] VITALS: BMI 37.7
[2023-12-06 11:53] LABS: UPreg QC Valid YES; Urine Pregnancy NEGATIVE (NEGATIVE)
[2023-12-06 13:23] VITALS: BP 103/75; PULSE 66; RESP 16; TEMP 36.6; O2SAT 100
[2023-12-06] MEDS: Lactated Ringers 1,000 ML 80 ML IVCONT (13:25)
--- NOTE | 2023-12-06 13:43 | MHC.SHP ---
Pre-Procedural Eval Section A - 24 Hr Update-Section A only Date of Service: 12/06/23 The patient is an INPATIENT: No The patient has been examined within 24 hours of the surgical procedure. The History & Physical has been completed within 30 days and I have reviewed it.: Yes Section B - Complete if H&P > 30 days Chief Complaint: Morbid (severe) obesity due to excess calories Relevant Family History (Specify if Yes): No Relevant Social History: None Present Medications: None Medical History: No relevant PMH History of Previous Operations: No relevant previous surgery Allergies: Allergies Allergy/AdvReac Type Severity Reaction Status Date / Time No Known Allergies Allergy Verified 12/06/23 11:37 [No Known Allergies*] Review of Systems Sugical H&P ROS: Negative: Constitution, Cardiovascular, Respiratory, Neurological, Psychiatric, Hem-Onc, Allergic/Immunologic, Gastrointestinal, Genitourinary, Musculoskeletal, Integumentary, Endocrine and Eyes/Ears/Nose/Throat Exam Surgical H&P Exam: Normal: HEENT, Normal: Heart, Normal: Lungs, Normal: Extremities, Normal: Abdomen, Normal: Skin and Normal: Neurological Plan Diagnosis/Plan: Unchanged (EGD to assess the stomach's anatomy. Risks of bleeding and perforation were discussed with the patient and she is in agreement with the plan.) I have reviewed the history and physical and performed a pertinent physical examination on my patient. No changes have occurred unless specified. Time Spent With Patient Time: Total time managing care of this patient today ____ minutes.
--- NOTE | 2023-12-06 14:00 | P.BOP_ITS ---
Brief Operative Note Date of Service: 12/06/23 Pre-op diagnosis: Obesity Post-op diagnosis: same Procedure: PROCEDURE DATE: 12/06/2023 PREOPERATIVE DIAGNOSIS: Obesity POSTOPERATIVE DIAGNOSIS: ?Same as above. 1) 2cm hiatal hernia PROCEDURE: [id number] with biopsies Surgeon: ?Vadim Perry M.D.. Ph.D. Printing Sign Machine Operator: None ? Anesthesia: IV sedation Estimated blood loss: ?Minimal FINDINGS AND PROCEDURE: ? OPERATIVE INDICATIONS: ?The patient is a 28 year old female known to me who is interested in bariatric surgery. Based on this information I recommended an upper endoscopy to evaluate the patient's symptoms. Risks and complications of the surgery were discussed with the patient in advance particularly the possibility of perforation or bleeding that may require surgical intervention. The patient understood the risks and was in agreement with the plan. ? PROCEDURE: After informed consent was obtained by the patient, the patient was ?transferred to the Operating Room and was placed in the supine position.? After successful induction of IV sedation, a mouth block was inserted and the patient was placed in the left lateral decubitus position. An upper endoscopy was performed next, the oropharynx and esophagus appeared within the normal limits. There was a 2cm hiatal hernia. The z-line was smooth. Two biopsies were obtained from the distal esophagus 2-3 cm proximal to the GE junction and two additional biopsies from the GE junction. The stomach was entered and it appeared to be of normal size. There was no gastritis. There was no stricture or ulcer. A biopsy was obtained from the gastric fundus and the antrum. No significant bleeding was noted from any of the biopsy sites. Retroflexion of the scope confirmed the presence of small diaphragmatic hernia. The scope was then advanced into the duodenum which appeared to be normal as well. At that point the duodenum ?and the stomach were decompressed and the scope was withdrawn from the patient's mouth. The patient extubated and was transferred in stable condition to the Recovery Room for further care. I was present and performed all steps of the procedure. There were no residents to assist with this case. Vadim Perry M.D., Ph.D. Surgeon: Maycol Perry MD Anesthesia: MAC Was an Printing Sign Machine Operator used for this Procedure?: No Estimated blood loss (mL): 0 IV fluids (mL): 400 Urine output (mL): 0 (No Samano to record output) Pathology: other (1) antrum x1, 2) fundus x1, 3) GE junction x2, 4) distal esophagus x2) Condition: stable Disposition: PACU
[2023-12-06 14:32] VITALS: BP 101/66; PULSE 73; RESP 16; TEMP 36.1; O2SAT 90
[2023-12-06 14:47] VITALS: BP 100/62; PULSE 53; RESP 12; O2SAT 98
[2023-12-06 15:02] VITALS: BP 108/53; PULSE 66; RESP 16; TEMP 36.2; O2SAT 100
[2023-12-06 15:18] VITALS: BP 110/58; PULSE 60; RESP 16; TEMP 36.2; O2SAT 100
== END 2023-12-06 15:47 | disposition home or self-care (01) ==
PROVIDERS: Nurse Practitioner; Visit Provider Surgery
PROC: 0DJ08ZZ Inspection of Upper Intestinal Tract, Via Natural or Artificial Opening Endoscopic (ICD-10-PCS; CPT 43235; principal; 2023-12-06 13:50)
DX: E66.01 Morbid (severe) obesity due to excess calories (principal); Z68.41 Body mass index [BMI] 40.0-44.9, adult; Z87.19 Personal history of other diseases of the digestive system; K44.9 Diaphragmatic hernia without obstruction or gangrene; E60 Dietary zinc deficiency; E50.9 Vitamin A deficiency, unspecified; E55.9 Vitamin D deficiency, unspecified; G47.33 Obstructive sleep apnea (adult) (pediatric); Z99.89 Dependence on other enabling machines and devices; Z79.899 Other long term (current) drug therapy; Z98.890 Other specified postprocedural states
CPT/HCPCS: 43239; 81025; 88305; 88313; 88342; J1596; J2250; J2704

== ENCOUNTER → 2023-12-06 11:16 | Outpatient (BNV) | payer OTHER, SELFPAY | PROVIDERS: Visit Provider Surgery | DX: K44.9 Diaphragmatic hernia without obstruction or gangrene (principal) | CPT/HCPCS: 43239 ==

== ENCOUNTER 2023-12-25 07:53 | Outpatient (REF) | payer OTHER, SELFPAY ==
--- NOTE | ~2023-12-25 | US_ITS ---
EXAMINATION: US COMPLETE ABDOMEN WITH LIVER ELASTOGRAPHY CLINICAL INFORMATION: Abnormal blood chemistry. COMPARISON: None available. TECHNIQUE: Real-time imaging of the abdominal viscera. Noninvasive ultrasound liver fibrosis assessment is performed using Yao ElastPQ point quantification shear wave elastography (pSWE) with a C5-2 MHz transducer. Multiple elastography samples are obtained. FINDINGS: PANCREAS: Normal. The visualized pancreatic head and body are normal in appearance. The remainder of the pancreas is obscured from visualization by the overlying bowel gas. ABDOMINAL AORTA: The proximal, middle, and distal aortic segments are normal in caliber. INFERIOR VENA CAVA: Visualized portions are normal. LIVER: The liver demonstrates normal size, and slightly lobulated contour and mildly increased echogenicity. No focal solid lesion or intrahepatic biliary duct dilatation. Within the right hepatic lobe, a 3.6 x 3.4 x 3.3 cm mildly complex is seen cyst is seen, with septation. The right lobe measures 18.0 cm in length. The left lobe measures 13.2 cm in length. Portal flow is towards the liver (hepatopetal). Shear wave liver elastography median stiffness is 2.16 m/s (reference: normal median stiffness is 1.3 m/s or less). IQR/median stiffness to assess sampling precision is 0.12 (reference: good quality data set is IQR/median stiffness of 0.15 or less). GALLBLADDER: Normal. The gallbladder is physiologically distended without evidence of stones, sludge, polyps, wall thickening or pericholecystic fluid. COMMON BILE DUCT: Normal in caliber measuring 0.6 cm in diameter. RIGHT KIDNEY: Normal. No hydronephrosis. No renal calculi or focal parenchymal lesions. The kidney measures 10.5 cm in maximum dimension. LEFT KIDNEY: Normal. No hydronephrosis. No renal calculi or focal parenchymal lesions. The kidney measures 10.5 cm in maximum dimension. SPLEEN: Normal. The spleen measures 18.9 cm in maximum dimension. No focal findings FREE FLUID: None. US/US abdomen comp w elastography IMPRESSION: 1. There is mild increase in hepatic echotexture and a slightly lobulated surface contour. In the appropriate clinical setting, these findings can be associated with hepatocellular disease. This requires clinical correlation. 2. Liver elastography: Measuremensts are consistent with compensated advanced chronic liver disease. 3. There is hepatosplenomegaly. REFERENCE: Society of Radiologists in Ultrasound Liver Stiffness Thresholds (2020): LIVER STIFFNESS THRESHOLDS: *Liver Stiffness equal or less than 1.3 m/s: High probability of being normal. *Liver Stiffness less than 1.7 m/s: In the absence of other known clinical signs, rules out compensated advanced chronic liver disease. *Liver Stiffness 1.7-2.1 m/s: Suggestive of compensated advanced chronic liver disease but need further test for confirmation. *Liver Stiffness over 2.1 m/s: Rules in compensated advanced chronic liver disease. *Liver Stiffness over 2.4 m/s: Suggestive of clinically significant portal hypertension. QUALITY OF DATA SET: *IQR/Median value equal or less than 0.15 implies a quality data set. *IQR/Median value over 0.15 implies a poor quality data set. SIGNIFICANT CHANGE FROM PRIOR EXAM: Significant change if liver stiffness measurement is 10% or greater from prior exam. OTHER CONSIDERATIONS: The stage of liver fibrosis may be overestimated in the setting of acute hepatitis, liver inflammation, elevated liver function tests, hepatic vascular congestion, obstructive cholestasis, non-fasting state, and infiltrative diseases such as amyloidosis and lymphoma. In some patients with NAFLD, the liver stiffness thresholds for compensated advanced chronic liver disease may be lower. In causes other than viral hepatitis and NAFLD, liver stiffness thresholds are not well established. Electronically signed by: Caleb Chou MD 01/21/2024 04:28 PM EDT
== END 2023-12-25 07:54 | disposition home or self-care (01) ==
LOC: HO.US 07:53
PROVIDERS: Visit Provider Surgery
DX: E66.01 Morbid (severe) obesity due to excess calories (principal); Z99.89 Dependence on other enabling machines and devices
CPT/HCPCS: 76700; 76981

== ENCOUNTER 2024-01-01 08:38 | Outpatient (AMB) | payer OTHER, SELFPAY ==
[2024-01-01 08:31] VITALS: BMI 36.1
--- NOTE | 2024-01-01 08:31 | MHC.OFFVISWM ---
VS Expanded 01/01/24 08:31 Height 5 ft 7 in Weight 230 lb 4 oz BMI 36.1 Intake Visit Reasons: (TV) F/U SWL Social Services Designee Required: No Allergies No Known Allergies [No Known Allergies*] Allergy (Verified 12/06/23 11:37) Medication List - Last Reconciled 01/01/24 by CATHERINE Cleveland cholecalciferol (vitamin D3) 125 mcg PO DAILY vitamin A palmitate 10,000 units PO DAILY zinc gluconate 10 mg PO DAILY HPI Comments Details: Patient is a 28-year-old female who returns to the office today in follow-up for preop counseling in our Surgical weight loss program. She was initially seen on 11/01/2023 with a weight of 255.2 lb and a BMI of 40. Weight today is 230.4 pounds with a BMI of 36.1. She has had a 24.8 pound weight loss or 9.7 % TBWL. She states she is doing well. Has more energy and sleeping much better Meal plan: celebrate rebuild 1 scoop w lactose free milk 9-11, 11-1 celebrate bar 3-5, 6-8, 7-9 drinking 100 oz water exercise: 400 kalyn daily on treadmill at [facility] Medical History CPAP (continuous positive airway pressure) dependence Morbid obesity Social History Patient Tobacco Use Status: Never used Tobacco Telehealth Telehealth Telehealth Platform: Telephone Location of provider rendering services: practice address Location of patient: address on file Patient Identification confirmed using: Name, : Yes Telehealth method: voice only Patient verbally consented to treatment: Yes Patient verbally consented to billing insurance company: Yes Patient informed of any privacy concerns related to visit: Yes Minutes spent on Phone/Video with Pt.: 10 Assessment & Plan Assessment & Plan (1) Obesity (BMI 30-39.9): Code(s): E66.9 - Obesity, unspecified Category: Medical Plan: Patient is doing very well. She is satisfied with her meal plan as directed by the new hoang as well as Dr. Perry. She has lost over 24 lb. We will continue current meal plan, exercise plan, refer back to Dr. Perry for continued preoperative planning.
== END 2024-01-01 08:42 | disposition home or self-care (01) ==
LOC: HO.HBS 08:38
PROVIDERS: Visit Provider Physician Assistant Surgical
DX: E66.9 Obesity, unspecified (principal)
CPT/HCPCS: 99213

== ENCOUNTER → 2024-01-01 08:38 | Outpatient (BNVA) | payer OTHER, SELFPAY | PROVIDERS: Visit Provider Physician Assistant Surgical | DX: E50.9 Vitamin A deficiency, unspecified (principal); E60 Dietary zinc deficiency ==

== ENCOUNTER 2024-01-11 09:31 | Outpatient (REF) | payer OTHER, SELFPAY ==
--- NOTE | ~2024-01-11 | FL_ITS ---
EXAMINATION: XR FLUOROSCOPY UPPER GI WITH AIR CLINICAL INFORMATION: Preop evaluation prior to bariatric surgery COMPARISON: None TECHNIQUE: Fluoroscopic air contrast upper GI examination was performed utilizing standard techniques with thin and thick barium and effervescent granules. Numerous spot images were obtained. FINDINGS: Dual and single contrast images of the esophagus demonstrate normal caliber, contour, and mucosal pattern. No evidence of stricture, mass, or ulcerations identified. Esophageal peristalsis was normal. A very small type I hiatal hernia is present. Mild gastroesophageal reflux is seen in the distal esophagus. Dual contrast and single contrast images of the stomach demonstrated normal contour and mucosal pattern without evidence of mass, ulceration, or other abnormality. Contrast freely passed into the gastric antrum and duodenal bulb without delay. Single and air-contrast images of the duodenal bulb demonstrate no abnormality. The duodenal sweep has a normal appearance, course, and mucosal fold appearance. The imaged proximal jejunum has a normal fold pattern and caliber. FLUOROSCOPY TIME: 2 minutes 39 seconds Number of Spot Images: 7 Number of Cine: 13 DOSE AREA PRODUCT: 2256 uGy-m2 (microgray-meter squared) FL/FL upper GI w air IMPRESSION: 1. Very small type I hiatal hernia with mild gastroesophageal reflux. Otherwise unremarkable upper GI series. This procedure was performed by Thomas Velásquez PA-C, and supervised by Dr. Miranda
== END 2024-01-11 09:32 | disposition home or self-care (01) ==
LOC: HO.XRAY 09:31
PROVIDERS: Visit Provider Surgery
DX: E66.01 Morbid (severe) obesity due to excess calories (principal); Z99.89 Dependence on other enabling machines and devices
CPT/HCPCS: 74246

== ENCOUNTER → 2024-01-11 09:33 | Outpatient (BNV) | payer OTHER, SELFPAY | PROVIDERS: Visit Provider Physician Assistant Surgical | DX: E66.01 Morbid (severe) obesity due to excess calories (principal); Z01.818 Encounter for other preprocedural examination | CPT/HCPCS: 74246 ==

== ENCOUNTER 2024-01-22 08:00 | Outpatient (AMB) | payer OTHER, SELFPAY ==
--- NOTE | 2024-01-22 10:05 | A.OFFVIS_ITS ---
VS Expanded 01/22/24 10:12 Height 5 ft 7 in Weight 223 lb 6 oz BMI 35.0 Body Fat % 29.1 Body Fat Mass 65 Fat Free Mass 158.4 Visceral Fat Rating 16 Body Water % 48.7 Body Water Mass 108.8 Basal Metabolic Rate/Score 1,937 Intake Visit Reasons: TV Follow Up SWL Allergies No Known Allergies [No Known Allergies*] Allergy (Verified 12/06/23 11:37) HPI HPI TV Follow Up SWL: Details: Start time: 9.57am, End time: 10.17am ?I spent 15 minutes speaking with the patient on the phone plus an additional 5 minutes reviewing and updating records for a total of 20 minutes HPI Comments Details: Overall weight loss: 31.6lbs, or 12.4% TBWL Is doing 2 Celebrate Rebuild protein shakes (1 scoop each in 8oz almond milk), 3 Celebrate protein bars Exercise: Gym x5/week doing treadmill for 400 calories, and weight exercises PFSH Medical History CPAP (continuous positive airway pressure) dependence Morbid obesity Social History Patient Tobacco Use Status: Never used Tobacco Telehealth Telehealth Telehealth Platform: Telephone Location of provider rendering services: practice address Location of patient: address on file Patient Identification confirmed using: Name, : Yes Telehealth method: voice only Patient verbally consented to treatment: Yes Patient verbally consented to billing insurance company: Yes Patient informed of any privacy concerns related to visit: Yes Minutes spent on Phone/Video with Pt.: 20 Assessment & Plan Assessment & Plan (1) Obesity: Code(s): E66.9 - Obesity, unspecified Category: Medical Qualifiers: Obesity type: due to excess calories Obesity classification: adult class 2 (BMI 35 - 39.9) Serious obesity comorbidity presence: with serious comorbidity Body mass index: BMI 35.0-35.9 Qualified Code(s): E66.01 - Morbid (severe) obesity due to excess calories; Z68.35 - Body mass index [BMI] 35.0- 35.9, adult Plan: 1. Plan for lap sleeve gastrectomy including upper GI endoscopy. All tests has been completed and reviewed and the patient is cleared for the surgery. ?If diaphragmatic or ventral hernias are present at time of surgery, these will be repaired laparoscopically as well. Risks and complications were discussed in detail including possible conversion to an open procedure, anastomotic leak, bleeding requiring transfusion, small bowel obstruction, , DVT and pulmonary embolism, cardiac, or pulmonary complications, as terminal gauger complications such as anastomotic ulcer, insufficient weight loss and vitamin deficiencies. I emphasized the importance of close follow-up, adherence to instructions and good communication. So far she has proven to be an excellent communicator and very compliant with all our directions accomplishing a great we ight loss. I believe that she is an excellent candidate and she is ready. 2. The patient participated in a structured preoperative lifestyle intervention program supervised by a physician the 3 months preceding the surgical procedure. The lifestyle intervention included a structured nutritional plan with a specific daily protein intake goal, an exercise plan with a 2000 calorie burn weekly goal, weekly behavior modification guidance and completion of eight 1- hour online nutritional classes and passing successfully the corresponding quizzes. Adherence to preoperative care plan was demonstrated by completing an extensive preoperative work-up. Program participation was demonstrated by completing 6 visits with our medical team and by sharing weekly weight measurements weekly for 3 consecutive months via an approved body composition scale. Compliance to the lifestyle intervention was demonstrated by achieving a 31.6lbs weight-loss or 12.38% total body weight loss (TBWL). No medications were used to achieve this weight loss. In our published experience an over 7% preoperative TBWL, achieved by meeting the diet and exercise goals of our program improves surgical outcomes, reduces the potential for surgical complications, and predicts a statistically significant higher weight loss up to 6 years postoperatively. 3. Continue same nutritional plan of 2 Celebrate Rebuild protein shakes (1 scoop each in 8oz almond milk), 3 Celebrate protein bars 4. Exercise: continue Gym x5/week doing treadmill for 400 calories, and weight exercises 5. Continue to send me weight measurements weekly on Mondays
[2024-01-22 10:12] VITALS: BMI 35.0
== END 2024-01-22 10:18 | disposition home or self-care (01) ==
LOC: HO.HBS 08:01
PROVIDERS: Visit Provider Surgery
DX: E66.01 Morbid (severe) obesity due to excess calories (principal); Z68.35 Body mass index [BMI] 35.0-35.9, adult
CPT/HCPCS: 99213

== ENCOUNTER → 2024-01-22 08:00 | Outpatient (BNVA) | payer OTHER, SELFPAY | PROVIDERS: Visit Provider Surgery ==

== ENCOUNTER 2024-02-16 07:50 | Outpatient (AMB) | payer OTHER, SELFPAY ==
--- NOTE | 2024-02-16 10:45 | A.OFFVIS_ITS ---
VS Expanded 02/16/24 10:54 Height 5 ft 7 in Weight 213 lb 4 oz BMI 33.4 Body Fat % 27.6 Body Fat Mass 58.8 Fat Free Mass 154.4 Visceral Fat Rating 15 Body Water % 49.7 Body Water Mass 106 Basal Metabolic Rate/Score 1,867 Intake Visit Reasons: TV Pre Op LSG 02/22/24 Allergies No Known Allergies [No Known Allergies*] Allergy (Verified 02/16/24 10:46) Medication List - Last Reconciled 02/16/24 by Maycol Perry MD cholecalciferol (vitamin D3) 125 mcg PO DAILY ondansetron 4 mg PO Q12H pantoprazole 40 mg PO DAILY polyethylene glycol 3350 17 grams PO DAILY sucralfate 10 mL PO BID vitamin A palmitate 10,000 units PO DAILY zinc gluconate 10 mg PO DAILY HPI HPI TV Pre Op LSG 02/22/24: Details: Start time: 10.40am, End time: 11.03am ?I spent 18 minutes speaking with the patient on the phone plus an additional 5 minutes reviewing and updating records for a total of 23 minutes HPI Comments Details: Overall weight loss: 41.8 lbs, or 16.4% TBWL Is doing 2 Celebrate Rebuild shakes with 2 scoops each and 3 Celebrate Rebuild shakes with one scoop each REPLACED BY [facility] Medical History (Updated 02/15/24 @ 12:06 by Tricia Condon RN) MAYRA (obstructive sleep apnea) Morbid obesity Surgical History (Updated 02/15/24 @ 12:06 by Tricia Condon RN) History of surgery on lower extremity Social History Household Members Other:: minor children Are you a primary career development facilitator to a significant other at home: Yes (minor children) Do you presently have visiting nurse or other home services: No Patient Tobacco Use Status: Never used Tobacco Telehealth Telehealth Telehealth Platform: Telephone Location of provider rendering services: practice address Location of patient: address on file Patient Identification confirmed using: Name, : Yes Telehealth method: voice only Patient verbally consented to treatment: Yes Patient verbally consented to billing insurance company: Yes Patient informed of any privacy concerns related to visit: Yes Minutes spent on Phone/Video with Pt.: 23 Assessment & Plan Assessment & Plan (1) Obesity: Code(s): E66.9 - Obesity, unspecified Category: Medical Qualifiers: Obesity type: due to excess calories Obesity classification: adult class 2 (BMI 35 - 39.9) Serious obesity comorbidity presence: with serious comorbidity Body mass index: BMI 35.0-35.9 Qualified Code(s): E66.01 - Morbid (severe) obesity due to excess calories; Z68.35 - Body mass index [BMI] 35.0- 35.9, adult Plan: 1. Plan for lap sleeve gastrectomy including upper GI endoscopy. All tests has been completed and reviewed and the patient is cleared for the surgery. ?If diaphragmatic or ventral hernias are present at time of surgery, these will be repaired laparoscopically as well. Risks and complications were discussed in detail including possible conversion to an open procedure, anastomotic leak, bleeding requiring transfusion, small bowel obstruction, , DVT and pulmonary embolism, cardiac, or pulmonary complications, as jailor complications such as anastomotic ulcer, insufficient weight loss and vitamin deficiencies. I emphasized the importance of close follow-up, adherence to instructions and good communication. So far she has proven to be an excellent communicator and very compliant with all our directions accomplishing a great weight loss. I believe that she is an excellent candidate and she is ready. 2. Preop prescriptions were provided and explained the purpose of each one. Need to be purchased preop. Start Pantoprazole now as you get it from the pharmacy, 1 pill per day. Sucralfate and Zofran are for after surgery as needed. 3. Bowel prep: please do 7 packets ?of Miralax mixing each one with a an 8oz glass of water, crystal light, gatorade zero, or propel ?on 02/20/24 and the same amount on 02/21/24. The Miralax you begin with one packet at a time in 8oz water or crystal light, gatorade zero, or propel ?as early in the day as you can and you do them back to back until you finish them. Continue the protein shakes during ?the bowel prep. 4. Needs to purchase 1oz medicine cups . 5. Needs to purchase Children's liquid Tylenol for postop pain control. 6. She needs to stop all the vitamins on 12/01/20. Avoid aspirin, motrin, Advil, Aleve, Ibuprofen, Naproxyn. Tylenol is OK. 7. She needs to purchase the Celebrate 4:1 protein shakes from the hospital's gift shop. 8. Importance of adherence to postop folllow-up and recommendations was underscored and she understands that. 9. Continue to avoid food and bars and continue with 3 Celebrate REBUILD protein shakes (ONE scoop EACH in 8oz almond milk) at 8am-10am, 11am-1pm and 2pm-4pm and TWO more Celebrate REBUILD protein shakes with TWO scoops in 8oz of almond milk at 5pm-7pm and 8pm-10pm 10. No soups, broths or V8 11. The patient's?medical?history has been reviewed and they are considered low risk for post op DVT and therefore DVT prophylaxis is not considered necessary. Travel after surgery was reviewed. The patient has not disclosed any travel plans during the first 30 days after surgery and they have been advised that within the first 30 days after surgery any bus, plane, train or car travel over 2 hours in duration is contraindicated due to the possibility of developing blood clots from immobility. Any travel, needs to include periods of ambulation of 10 minutes in duration every 2 hours.? Patient was instructed to discuss any plans for travel during this period with their bariatric surgeon.? 12. Please take at the day of surgery the following medications: NONE 13. Stop any control pills and don't use them for one month after surgery 14. Absolutely no smoking or vaping, or marijuana until the surgery and for at least the first 4 weeks. Only nicotine patches are allowed. 15. Send me weight measurements on Monday02/19/24 from my office scale and then on 02/22/24 the day of surgery before you go to the hospital. 16. Avoid any steroids by mouth for any reason. Let me know if someone prescribes them to you 17. These instructions supersede anything else you read in the handbook, anything you watched in videos or classes or you were told by any other provider. If there is any conflict, you follow the above instructions and nothing else. Medications: New ondansetron Only take one every 12 hours as needed if you have nausea 4 mg PO Q12H 20 tabs 0RF nausea and vomiting R11.0 - Nausea pantoprazole 40 mg PO DAILY 90 tabs 0RF K21.9 - Gastro-esophageal reflux disease without esophagitis sucralfate 10 mL PO BID 600 mL 2RF K21.9 - Gastro-esophageal reflux disease without esophagitis polyethylene glycol 3350 Mix each measuring cup with 8oz of water, Crystal light, or Gatorade zero, or Propel and do 7 measuring cups on 02/20/24 and another 7 measuring cups on 02/21/24 17 grams PO DAILY 238 grams 0RF Z01.818 - Encounter for other preprocedural examination
[2024-02-16 10:54] VITALS: BMI 33.4
== END 2024-02-16 11:04 | disposition home or self-care (01) ==
LOC: HO.HBS 07:50
PROVIDERS: Visit Provider Surgery
DX: E66.01 Morbid (severe) obesity due to excess calories (principal); Z68.35 Body mass index [BMI] 35.0-35.9, adult
CPT/HCPCS: 99213

== ENCOUNTER → 2024-02-16 07:50 | Outpatient (BNVA) | payer OTHER, SELFPAY | PROVIDERS: Visit Provider Surgery ==

== ENCOUNTER 2024-02-19 08:45 | Outpatient (REF) | payer OTHER, SELFPAY ==
[2024-02-19 09:14] LABS: MANUAL DIFF FLAG NO
[2024-02-19 09:35] LABS: Basophils Percent Auto 0.4 % (0-2); Eosinophils Absolute Auto 0.1 X10*3/uL (0.0-0.4); Eosinophils Percent Auto 1.9 % (0-4); Hematocrit 35.6 % (37.0-47.0); Hemoglobin 12.6 g/dl (12.0-16.0); Imm Gran Abs Auto 0.02 X10*3/uL (0.00-0.03); Imm Gran Pct Auto 0.3 % (0.0-0.4); Lymphocytes Absolute Auto 1.6 X10*3/uL (1.2-4.9); Lymphocytes Percent Auto 22.1 % (20-40); Mean Corpuscular HGB Conc 35.4 g/dl (31.0-35.0); Mean Corpuscular Volume 90.4 fL (80.0-98.0); Mean Platelet Volume 11.4 fL (9.4-12.3); Monocytes Absolute Auto 0.4 X10*3/uL (0.1-1.2); Monocytes Percent Auto 4.9 % (2-11); Neutrophils Absolute Auto 5.2 x10*3/uL (2.0-8.3); Neutrophils Percent Auto 70.4 % (45-73); Platelet Count 224 X10*3/uL (160-400); Red Blood Count 3.94 X10*6/uL (4.20-5.50); Red Cell Distribution Width 12.4 % (11.0-16.0); White Blood Count 7.4 X10*3/uL (4.8-10.8)
[2024-02-19 09:46] LABS: Partial Thromboplastin Time 35.8 SEC (26.0-36.8)
[2024-02-19 09:52] LABS: Estimated Average Glucose 82 mg/dL; Hemoglobin A1c % 4.5 % (<6.0)
[2024-02-19 10:21] LABS: Alanine Aminotransferase 11 U/L (0-31); Albumin Level 4.2 g/dL (3.5-5.0); Alkaline Phosphatase 45 U/L (39-117); Anion Gap 12 (12-20); Aspartate Amino Transferase 11 U/L (5-31); Bilirubin Total 0.5 mg/dL (0.0-1.0); Blood Urea Nitrogen 18 mg/dL (9-16); C Reactive Protein 1.53 mg/dL (< or = 0.50); Calcium 9.7 mg/dL (8.4-10.2); Carbon Dioxide 23 mmol/L (22-29); Chloride 110 mmol/L (96-108); Cholesterol 131 mg/dL (<200); Estimated Glomerular Filt Rate > 60; Glucose Random 97 mg/dL (60-115); HDL Cholesterol 30 mg/dL (>40); Iron 59 mcg/dL (30-160); LDL Cholesterol Calculated 83 mg/dL (<100); Percent Iron Saturation 24 % (15-50); Potassium 3.8 mmol/L (3.3-5.1); Sodium 141 mmol/L (135-145); Total Iron Binding Capacity 247 mcg/dL (228-428); Triglycerides 94 mg/dL (<150); Unsaturated Iron Binding 188 ug/dL
[2024-02-19 10:24] LABS: Ferritin 78 ng/mL (10-122); Insulin 24 uU/mL (2-29); TSH reflex Free T4 2.75 uIU/mL (0.32-4.0)
[2024-02-19 10:33] LABS: Vitamin B12 434 pg/mL (200-900)
[2024-02-22 05:45] LABS: Zinc 57 mcg/dL (60-130)
[2024-02-23 20:58] LABS: Vitamin A 36 mcg/dL (38-98)
[2024-03-03 16:18] LABS: Vitamin B1 18 nmol/L (8-30)
== END 2024-02-19 08:46 | disposition home or self-care (01) ==
LOC: HO.LAB 08:45
PROVIDERS: Absent Provider Surgery; Visit Provider Physician Assistant Surgical
DX: Z01.818 Encounter for other preprocedural examination (principal)
CPT/HCPCS: 36415; 80053; 80061; 82306; 82607; 82728; 83036; 83525; 83540; 84425; 84443; 84590; 84630; 85025; 85610; 85730; 86140

== ENCOUNTER 2024-02-22 07:41 | Inpatient (IN) | payer OTHER, SELFPAY ==
[2024-02-15 12:06] VITALS: BMI 33.5
[2024-02-22] VITALS (12 sets, daily range): BP systolic 118–149; BP diastolic 76–95; PULSE 66–90; RESP 12–18; TEMP 36.1–37.3; O2SAT 95–100; BMI 36.0
--- NOTE | 2024-02-22 08:03 | PHA.MEDREC ---
Addendum entered by Alexis Mas 02/22/24 08:04: Reviewed Original Note: Pharmacy Consult ? Medication Reconciliation Pharmacy has reviewed the medication reconciliation done by nurse.
[2024-02-22 08:06] LABS: UPreg QC Valid YES; Urine Pregnancy NEGATIVE (NEGATIVE)
--- NOTE | 2024-02-22 08:18 | MHC.SHP ---
Pre-Procedural Eval Section A - 24 Hr Update-Section A only Date of Service: 02/22/24 The patient is an INPATIENT: Yes The patient has been examined within 24 hours of the surgical procedure. The History & Physical has been completed within 30 days and I have reviewed it.: Yes Section B - Complete if H&P > 30 days Chief Complaint: Obesity, unspecified Relevant Family History (Specify if Yes): No Relevant Social History: None Present Medications: None Medical History: No relevant PMH History of Previous Operations: No relevant previous surgery Allergies: Allergies Allergy/AdvReac Type Severity Reaction Status Date / Time No Known Allergies Allergy Verified 02/22/24 07:57 [No Known Allergies*] Review of Systems Sugical H&P ROS: Negative: Constitution, Cardiovascular, Respiratory, Neurological, Psychiatric, Hem-Onc, Allergic/Immunologic, Gastrointestinal, Genitourinary, Musculoskeletal, Integumentary, Endocrine and Eyes/Ears/Nose/Throat Exam Surgical H&P Exam: Normal: HEENT, Normal: Heart, Normal: Lungs, Normal: Extremities, Normal: Abdomen, Normal: Skin and Normal: Neurological Plan Diagnosis/Plan: Unchanged I have reviewed the history and physical and performed a pertinent physical examination on my patient. No changes have occurred unless specified. Time Spent With Patient Time: Total time managing care of this patient today ____ minutes.
--- NOTE | 2024-02-22 08:20 | P.BOP_ITS ---
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 The program is a phased program with a special focus on preoperative medical weight management to promote substantial weight loss and prepare the patients for the second phase of the program: bariatric surgery. The patient participated in an intensive weekly lifestyle ?intervention and exercise program during which the patient ?has lost between the initial office visit and the last preoperative visit 22 lbs, or 9.8% of initial actual body weight. It was deemed appropriate for the patient to now have bariatric surgery. In light of the current Covid-19 pandemic and the well documented strong association of obesity and increased risk of worse outcomes if infected with Covid-19 (REFERENCES: https://pubmed.ncbi.nlm.nih.gov/04639787/ ,? https://pubmed.ncbi.nlm.nih.gov/59068657/ ), any delay in undergoing bariatric surgery may lead to the patient's worsening health condition and increased?risk of more severe Covid-19 disease if infected. In addition a recent?study from [facility] published in [facility] on 05/24/2021 ([email or web address]/C:/[email or web address] _[id number]) found that, among patients with obesity, substantial weight loss achieved with surgery was associated with improved outcomes of COVID-19 infection. The findings suggest that obesity can be a modifiable risk factor for the severity of COVID-19 infection. In addition, the patient met the BMI-criteria for bariatric surgery based on the BMI on initial presentation. The patient should not be penalized for achieving such weight loss because ?it is not sustainable long-term without surgical intervention and it was achieved in preparation for bariatric surgery ?under my direction and based on my published research ([email or web address]).[email or web address] and? https://www.soard.org/article/[email or web address](96)32430-X/pdf ) ?that a 10% preoperative weight loss improves long-term weight loss after surgery and reduces perioperative complications.? Insurance carriers such as [facility] have endorsed my recommendations ?and have included in their policies criteria to include a 10% preoperative weight loss requirement. PROCEDURE: Esophago-gastroscopy laparoscopic lysis of adhesions, laparoscopic sleeve gastrectomy and laparoscopic gastropexy INDICATIONS: This is a 28 year-old female who was electively scheduled for laparoscopic, possibly open sleeve gastrectomy. The risks and complications of the procedure were discussed with the patient in advance, particularly the possibility of ; pulmonary embolism; staple line leak; bleeding; GERD; cardiac, pulmonary, or renal complications; as well as long-term problems such as insufficient weight loss, vitamin deficiency, strictures, or ulcers. The patient understood all the risks, and was in agreement to proceed with surgery. DESCRIPTION OF PROCEDURE: After informed consent was obtained from the patient, the patient was given preoperative antibiotics, and was transferred to the operating room. After successful induction of general anesthesia, pneumatic compression devices were placed on both lower extremities. An upper endoscopy was performed next. The oropharynx and esophagus appeared to be within normal limits. There was a diaphragmatic hernia present of moderate size consistent with the findings of the preoperative upper GI. The stomach was entered. Then after all fluid and air were suctioned and the stomach was fully decompressed, the scope was withdrawn and secured in the mid esophagus. The patient was then prepped and draped in the usual sterile manner, and abdominal access was established at the right upper quadrant with the Sabine technique. A 12 mm blunt port was inserted, and the abdomen was insufflated with CO2 to a pressure of 15 mmHg. Under direct visualization, additional ports were placed, specifically two 5 mm Versi-step ports to the left upper quadrant, and a 5 mm Versi-Step port to the right upper quadrant. 1% lidocaine plain was used to infiltrate all port sites as well as all fascia defects. Using the EndoClose suture passer device, I placed a #1 Polysorb tie across the falciform ligament in order to retract it up against the abdominal wall and prevent injury of the ligament with our instruments during the procedure. Following that, the patient was placed in a steep reverse Trendelenburg position. An additional 5 mm port was placed to the right flank for the Mediflex retractor that was used to retract the left lobe of the liver. The gastro-esophageal fat pad was opened with the ultrasonic device (Thunderbeat, Olympus) and the anterior esophagus and hiatus were exposed. The angle of His was opened with the ultrasonic device the fundus of the stomach from any diaphragmatic and splenic attachments. I then opened the gastrocolic ligament between the transverse colon and the greater curvature of the stomach with the ultrasonic device to enter the lesser sac and facilitate the ligation of the short gastric vessels. I started at a mid-point along the greater curvature and using the Thunderbeat, all short gastric vessels were divided all the way to the angle of His until the left jackeline was completely dissected at its entirety. I then divided the gastro-colic ligament distally to a distance of about 3-4 cm proximal to the pylorus. There were extensive congenital adhesions between the sleen and posterior gastric wall. This made the procedure extremely difficult as it required a very careful and tedious dissection to seperate the two ogans without causing injury and bleeding from the spleen. Those were lysed completely with the ultrasonic device. Adhesiolysis took approximately 45 min to complete. The stomach was then divided transversely with one Endo LUIS A-45 purple and four LUIS A-60 articulating purple loads using the SIGNIA stapler and loads. Every effort was made that the gastric sleeve had a tubular shape and an even caliber throughout. Once the sleeve resection was completed, the staple line of the gastric sleeve was reinforced with Hemoclips. The resected stomach was retrieved without difficulty from the Sabine port. A gastropexy was then performed in order to prevent postoperative GERD and partial gastric volvulus. Several interrupted 2.0 Surgidac sutures were placed between the sleeve's staple line and the previously divided greater omentum and gastro-colic ligament using the Endo-Stitch device. ?An upper endoscopy was performed. There was no narrowing at the GE junction. The scope was easily advanced all the way to the pylorus which was clearly visualized. There was no narrowing anywhere and the sleeve's caliber was even throughout. The sleeve's staple line was inspected and there was no evidence of ischemia, bleeding or dehiscence. At that point the gastroscope was withdrawn from the patient?s mouth while we were decompressing the bowel and the stomach from any remaining air. I looked into the lesser sac to see how the sleeve was situating and it was situating well. There was no bleeding from the staple line, spleen, or short gastric vessels. The Mediflex retractor was removed, and the undersurface of the liver was inspected and there was no bleeding. The patient was placed in supine position. I closed the fascial defect of the 12 mm port site with a figure of eight #1 Polysorb suture. Then 100 cc 0.25 % Marcaine plain with 10 mg of Dexamethasone were used to infiltrate the fascial closure as well as all skin incisions. At this point, the abdomen was deflated, all ports were removed under direct vision, and no bleeding was noted from any of the port sites. The skin incisions were irrigated with saline and were closed with 4-0 absorbable monofilament sutures. Steri-Strips and OpSites were used to cover all incisions. The patient was extubated and was transferred in stable condition to the recovery room for further care. I was present and performed all antony parts of the procedure. Ms. Cordovamassimonasra was the lead assistant manager. There were no residents to assist with this case. Vadim Perry MD, PhD, FACS Surgeon: Maycol Perry MD Anesthesia: GETA, local and other (TAP block) Was an Lime Kiln Operator used for this Procedure?: No Lime Kiln Operator: Jennie Bautista Estimated blood loss (mL): 10 IV fluids (mL): 3,000 Urine output (mL): 0 (No Samano to record output) Pathology: other (Stomach) Condition: stable Disposition: PACU
[2024-02-22] MEDS: Lactated Ringers 1,000 ML 100 ML IVCONT ×3 (08:33→22:19)
[2024-02-22] MEDS: Aprepitant 32 MG/4.4 ML VIAL IVPUSH (08:33)
[2024-02-22] MEDS: Lactated Ringers 1,000 ML 999 ML IV (08:34)
--- NOTE | 2024-02-22 08:35 | HO.ANESPROP2 ---
Documented by User: Meka Avendano NP 02/20/24 15:12 HPI - Anesthesia Eval Consult details Narrative: 28yo F for Gastrectomy Sleeve - EGD, possible diaphragmatic hernia, possible ventral hernia, possible open PMFSH Active Problems Active Problems: All Active Problems Pre-op evaluation (Acute) Steatosis, liver (Acute) Liver fibrosis (Acute) Obesity (Acute) Obesity (BMI 30-39.9) (Acute) Zinc deficiency (Acute) Vitamin A deficiency (Acute) Vitamin D deficiency (Acute) CPAP (continuous positive airway pressure) dependence (Acute) Morbid obesity (Acute) Past Medical History Medical History (Updated 02/15/24 @ 12:06 by Tricia Condon RN) MAYRA (obstructive sleep apnea) Morbid obesity Family History Family history of problems with anesthesia: No Surgical History Surgical History History of surgery on lower extremity History of Problems with Anesthesia: No Social History Social History Household Members Other:: minor children Are you a primary direct care counselor to a significant other at home: Yes (minor children) Do you presently have visiting nurse or other home services: No Patient Tobacco Use Status: Never used Tobacco Use of substances other than those prescribed or required for medical reasons: No Have you been hit, kicked, punched, or otherwise hurt by someone within the past year? If so, by whom?: No Spiritual Healthcare Practices: none Alevism Healthcare Practices: none Cultural Healthcare Practices: none Are you DNR?: No Advance Directives: No (mother & boyfriend are contacts) Advance Directives Information Provided: Yes (as above noted) Advance Directives on File: No Recently lost weight without trying: No Eating poorly because of decreased appetite: No Nutrition Risks: No Nutritional Risk Patient : No FDLMP: 02/01/24 : No Poor oral hygiene: No Meds Allergies Allergy/AdvReac Type Severity Reaction Status Date / Time morphine Allergy Severe Tachycardia, Verified 02/22/24 08:33 Shakiness Home Medications ?Medication ?Instructions ?Recorded ?Confirmed ?Last Taken ?Type ondansetron 4 mg disintegrating 4 mg PO Q12H PRN nausea and 02/22/24 02/22/24 Unknown History tablet vomiting Exam Height,Weight and Vital Signs: Height 5 ft 7 in Weight 97.069 kg Pertinent Lab Results Pertinent Lab Results: Laboratory Tests 02/19/24 09:00 Blood Type O Positive Antibody Screen NEGATIVE Laboratory Tests 02/19/24 09:11 WBC 7.4 Hgb 12.6 Hct 35.6 L Plt Count 224 Sodium 141 Potassium 3.8 Chloride 110 H Carbon Dioxide 23 BUN 18 H Creatinine 0.70 Narrative Narrative: EKG 10/2023 Vent. Rate : 064 BPM Atrial Rate : 064 BPM P-R Int : 136 ms QRS Dur : 080 ms QT Int : 382 ms P-R-T Axes : 045 012 026 degrees QTc Int : 394 ms Normal sinus rhythm Normal ECG When compared with ECG of 13-JAN-2020 16:57, No significant change was found Assessment and Plan Assessment Anesthesia Assessment: Chart Reviewed Final Anesthetic Review Family History of Problems with Anesthesia: No History of Problems with Anesthesia: No Documented by User: Clarissa Perdomo DO 02/22/24 08:40 [facility] Past Medical History Medical History (Updated 02/15/24 @ 12:06 by Tricia Condon RN) MAYRA (obstructive sleep apnea) Morbid obesity Family History Family history of problems with anesthesia: No Surgical History Surgical History History of surgery on lower extremity History of Problems with Anesthesia: No Social History Social History Household Members Other:: minor children Are you a primary direct care counselor to a significant other at home: Yes (minor children) Do you presently have visiting nurse or other home services: No Patient Tobacco Use Status: Never used Tobacco Use of substances other than those prescribed or required for medical reasons: No Have you been hit, kicked, punched, or otherwise hurt by someone within the past year? If so, by whom?: No Spiritual Healthcare Practices: none Alevism Healthcare Practices: none Cultural Healthcare Practices: none Are you DNR?: No Advance Directives: No (mother & boyfriend are contacts) Advance Directives Information Provided: Yes (as above noted) Advance Directives on File: No Recently lost weight without trying: No Eating poorly because of decreased appetite: No Nutrition Risks: No Nutritional Risk Patient : No FDLMP: 02/01/24 : No Poor oral hygiene: No Meds Allergies Allergy/AdvReac Type Severity Reaction Status Date / Time morphine Allergy Severe Tachycardia, Verified 02/22/24 08:33 Shakiness Home Medications ?Medication ?Instructions ?Recorded ?Confirmed ?Last Taken ?Type ondansetron 4 mg disintegrating 4 mg PO Q12H PRN nausea and 02/22/24 02/22/24 Unknown History tablet vomiting Exam Exam Date and Time: 02/22/24 0835 Height,Weight and Vital Signs: Height 5 ft 7 in Weight 97.069 kg Vital Signs Temperature 99.0 F 02/22/24 08:02 Pulse Rate 73 02/22/24 08:02 Respiratory Rate 16 02/22/24 08:02 Blood Pressure 118/79 02/22/24 08:02 Pulse Oximetry 98 02/22/24 08:02 Oxygen Delivery Method Room Air 02/22/24 08:02 Temperature 99.0 F 02/22/24 08:02 Pulse Rate 73 02/22/24 08:02 Respiratory Rate 16 02/22/24 08:02 Blood Pressure 118/79 02/22/24 08:02 Pulse Oximetry 98 02/22/24 08:02 Oxygen Delivery Method Room Air 02/22/24 08:02 Airway Mallampati Class: II TM Dist: >3cm Neck ROM: Full Loose/Missing/Broken Teeth: No (patient denies any loose or broken teeth) Heart: S1S2 Lungs: CTAB Assessment and Plan Assessment Anesthesia Assessment: Anesthesia Plan Discussed and Chart Reviewed Final Anesthetic Review Family History of Problems with Anesthesia: No History of Problems with Anesthesia: No NPO: Yes ASA Class: II Final Preanesthetic Review: No Changes in Pt Med Stat, Meds/Allgs Chart Reviewed, Consent Obtained/Reviewed and Anes Risks/Benef Reviewed Patient Risk: Low Procedure Risk: Intermediate Anesthetic Plan Anesthetic Plan: GA and Agree w/ Assess. and Plan Disposition: Standard PACU
--- NOTE | 2024-02-22 12:01 | P.PNGS_ITS ---
Subjective Subjective Date of Service: 02/23/24 Interval history: Feels well. Mild incisional pain. She is tolerating phase 1 bariatric diet Physical Exam 2 Vital Signs: Vital Signs: Last Vital Signs Temp 99.0 F 02/22/24 08:02 Pulse 73 02/22/24 08:02 Resp 16 02/22/24 08:02 BP 118/79 02/22/24 08:02 Pulse Ox 98 02/22/24 08:02 O2 Del Method Room Air 02/22/24 08:02 BMI result Body Mass Index 36.0 GI: Inspection: Yes normal to inspection, Yes incision (clean, dry and intact) and Yes obesity Palpation (GI): Soft to palpation Extrem: Right lower extremity: normal to inspection (no calf tenderness) L eft lower extremity: normal to inspection (no calf tenderness) Objective Data Active Medications Haloperidol Lactate (Haloperidol Lactate 5 Mg/Ml Vial) 1 mg IVPUSH ONCE PRN PRN Reason: intractable nausea Stop: 02/22/24 14:41 Hydromorphone HCl (Hydromorphone Hcl 0.5 Mg/0.5 Ml Syringe) 0.5 mg IVPUSH Q5M PRN PRN Reason: Pain, Moderate to Severe (Pain Scale 4-10) Stop: 02/22/24 14:41 Lactated Ringer's (Lr) 1,000 mls @ 100 mls/hr IVCONT .Q10H CHIP Last Admin: 02/22/24 08:33 Dose: 100 mls/hr Documented By: YIFAN Naloxone HCl (Naloxone Hcl 0.4 Mg/Ml Vial) 0.04 mg IVPUSH Q5M PRN PRN Reason: Excessive sedation or RR < 8 Labs 02/23/24 05:07 02/23/24 05:07 Labs: Laboratory Results - last 24 hr 02/22/24 07:53 Urine Test NEGATIVE Procedures Date of Service Date of Service: 02/23/24 Progress Note: A&P Assessment and plan (1) Obesity: Status: Acute Assessment and Plan: s/p laparoscopic sleeve gastrectomy, lysis of adhesions and gastropexy Doing well Will check am labs and if OK the patient will be discharged home (2) BMI 36.0-36.9,adult: Status: Acute (3) Steatosis, liver: Status: Acute (4) Liver fibrosis: Status: Acute (5) CPAP (continuous positive airway pressure) dependence: Status: Acute (6) Splenomegaly: Status: Acute (7) S/P laparoscopic sleeve gastrectomy: Status: Acute (8) Congenital intra-abdominal adhesions: Status: Acute Time Spent With Patient Time: Total time managing care of this patient today ____ minutes. Quality Stroke Does the patient have a stroke diagnosis?: No VTE Prior VTE?: No VTE Risk Level:: Surgical - moderate VTE Device Contraindication: N/A - Device Ordered VTE Drug Contraindication: Treatment Not Indicated
--- NOTE | 2024-02-22 12:02 | P.DS_ITS ---
DS: Providers Provider Date of Service: 02/23/24 Date of admission: 02/22/24 07:41 Primary care physician: Unknown Physician DS: Summary Hospital Course Hospital Course: ADMITTING DIAGNOSIS: morbid obesity,?liver steatosis, vitamin deficiency, MAYRA on CPAP ? DISCHARGE DIAGNOSIS: same, s/p laparoscopic sleeve gastrectomy and gastropexy ? PAST SURGICAL HISTORY:?none ? PROCEDURE: upper endoscopy, laparoscopic sleeve gastrectomy and gastropexy ? DISCHARGE SUMMARY: ? History of Present Illness: ? The patient is a? 28? year-old woman with a BMI of? 36 ? kg/m2 and associated co-morbidities as described above. The patient had extensive work-up, lost? ?25.2 ? lbs preoperatively and was electively scheduled for laparoscopic, possible open sleeve gastrectomy and gastropexy. Risks and complications of the surgery were discussed with the patient in advance, particularly the possibility of , pulmonary embolism, anastomotic leak, bleeding, bowel injury, GERD, cardiac, renal or pulmonary complications. The patient understood all the risks and was in agreement with the surgical plan. ? Hospital Course: ? The patient underwent an uneventful laparoscopic sleeve gastrectomy with gastropexy on the day of admission. Postoperatively, the patient was transferred to the surgical floor. The patient received IV Acetaminophen and IV dilaudid for pain control. Patient was started on bariatric phase 1 diet POD #0. On postoperative day one, the patient was feeling well without nausea, vomiting, fevers, or tachycardia. The patient had some mild incisional pain and the abdomen was soft.? ? On the morning of postoperative day one, the patient was continued on 1 ounce of water or ice every half hour. During the day, the patient did fairly well, having some incisional pain, but able to ambulate adequately and to tolerate liquids well. ? Since the patient is doing well, we decided that the patient was ready to be discharged. The patient was given instructions to follow-up with me next week and to call my office for any fever over 101, persistent abdominal pain, nausea, vomiting, GERD, symptoms of DVT such as calf tenderness, or leg swelling, or pulmonary embolism such as chest pain or shortness of breath.? The patient was also instructed to drink 40-60 ounces of liquids per day using the 1-ounce cups. The patient had been given prescriptions for Tylenol for pain, Zofran prn for nausea, and pantoprazole and carafate previously. The patient was encouraged to ambulate and use the incentive spirometer. The patient was allowed to shower, but no baths, and encouraged to stay active at home. All of these instructions were given to the patient personally. All questions were answered and the patient understood all instructions, the instructions were also given to the patient in print. Time Attestation Discharge Coordination Time (in mins): 30 Quality: Safe Use of Opioids Does Pt have an Active Cancer Diagnosis on the Problem List?: No Quality: Stroke Does the patient have a stroke diagnosis?: No Physical Exam Vital Signs: Vital Signs: Last Vital Signs Temp 99.0 F 02/22/24 08:02 Pulse 73 02/22/24 08:02 Resp 16 02/22/24 08:02 BP 118/79 02/22/24 08:02 Pulse Ox 98 02/22/24 08:02 O2 Del Method Room Air 02/22/24 08:02 BMI result Body Mass Index 36.0 DS: Data Data Completed and Pending Pending studies at discharge: Pending at discharge 02/22/24 11:14 Surgical [PTH] Routine Labs on day of discharge: Laboratory Results - last 24 hr 02/22/24 07:53 Urine Test NEGATIVE Discharge Plan Discharge Anticipated Discharge Date/Time: 02/23/24 10:00 Patient Disposition: Home, Self-Care Discharge Diagnosis: s/p laparoscopic sleeve gastrectomy with gastropexy Referrals: Physician,Unknown J [Primary Care Provider] - 1 Week Discharge Medications: Continued ondansetron 4 mg tablet,disintegrating 4 mg PO Q12H PRN (Reason: nausea and vomiting) Rx Instructions: Only take one every 12 hours as needed if you have nausea pantoprazole 40 mg tablet,delayed release (DR/EC) 40 mg PO DAILY Qty: 90 0RF sucralfate 100 mg/mL suspension 10 ml PO BID Qty: 600 2RF Discontinued cholecalciferol (vitamin D3) 125 mcg (5,000 unit) capsule 125 mcg PO DAILY Qty: 60 0RF vitamin A palmitate 3,000 mcg (10,000 unit) capsule 10,000 unit PO DAILY Qty: 60 0RF zinc gluconate 10 mg lozenge 10 mg PO DAILY Qty: 100 0RF Discharge Orders: Discharge Order (Routine); Ordered 02/23/24 Ordered By: Maycol Perry Activity on Discharge: No heavy lifting Stand Alone Forms: Patient Portal Discharge page Print Language: [place] Care Plan Goals: weight loss Health Concerns: obesity Plan of Treatment: No tub baths, sex or returning to work until discussed at first post op appointment. No alcohol, tobacco or illegal drug use. Continue to use incentive spirometer hourly while awake. Walk in home for 5- 10 minutes every 2 hours during the first week. Wear abdominal binder with activity. Follow all meal plan instructions from your bariatric surgeon. Review bariatric handbook and call with any questions. Discharge Instructions 1. Please call your doctor or come back to the emergency room should any new symptoms arise. 2. Activity: abstain from alcohol,? limited stair climbing, no bending, no driving, no exercise, no illicit substances, no lifting, no sex, no tub bath, no work. 4. Diet: follow your bariatric surgeons recommendations for advancing diet. 5. Dressing Change/Wound Care: Your incisions are covered with waterproof dressings. You can shower with these and pat dry. Do not rub over dressings or incisions. If the area is tender, you may apply an ice pack for short intervals (no more than 20 minutes on, followed by at least 20 minutes off). Do not apply heat. Do not use creams, lotions, or topical antibiotics unless instructed to do so by your surgeon. 6. Call your doctor if: - Your temperature exceeds 101.5 F - You experience excessive pain or swelling - You have an unexpected reaction to medication - You have excessive bleeding - You experience continued vomiting/nausea - Your incision begins to separate - Your incision shows signs of infection such as increased redness, swelling, excessive pain, heat, or drainage (light blood or clear fluid is normal) General instructions: No lifting greater than 10 lbs for the next 6 weeks[address] within 24 hours of taking narcotic pain medications. If you do not move your bowels in the next 2 days, please take milk of magnesia over the counter. Please follow the post op diet and do not advance your diet until you are seen in the office in about 2 weeks. Please walk around your home every hour or two to prevent blood clots from forming in your legs. You do not need to wake from sleeping to walk. Please sleep in a bed or couch to prevent kinking at the hips and knees. Please take your incentive spirometer (your lung asphalt worker) home with you and use it for the next few days to prevent pneumonias. You may shower, no hot tubs, baths or swimming pools. Please call the office with any questions or concerns such as increasing abdominal pain, fever, chills, shortness of breath, chest pain, leg pain or swelling, or redness or drainage from your incisions. Please make sure you are consuming 40-60 ounces of total fluids per day. Avoid all carbonation. Do not hesitate to contact the office with any questions at . The patient's medical history has been reviewed and they are considered low risk for post op DVT and therefore DVT prophylaxis is not considered necessary. Travel after surgery was reviewed. The patient has not disclosed any travel plans during the first 30 days after surgery and they have been advised that within the first 30 days after surgery any bus, plane, train or car travel over 2 hours in duration is contraindicated due to the possibility of developing blood clots from immobility. Any travel, needs to include periods of ambulation of 10 minutes in duration every 2 hours.? The patient was instructed to discuss any plans for travel during this period with their bariatric surgeon. Assessment: s/p laparoscopic sleeve gastrectomy with gastropexy Discharge Date/Time: 02/23/24 08:53
[2024-02-22 12:38] LABS: Hemoglobin 11.9 g/dl (12.0-16.0)
[2024-02-22 12:55] LABS: Anion Gap 10 (12-20); Blood Urea Nitrogen 11 mg/dL (9-16); Calcium 8.8 mg/dL (8.4-10.2); Carbon Dioxide 23 mmol/L (22-29); Chloride 107 mmol/L (96-108); Creatinine Clr Calc Pharmacy 139.3; Estimated Glomerular Filt Rate > 60; Glucose Random 143 mg/dL (60-115); Potassium 4.1 mmol/L (3.3-5.1); Sodium 136 mmol/L (135-145)
[2024-02-22] MEDS: ceFAZolin Sodium/Dextrose,Iso 2 GM/50 ML PIGGYBACK IV (14:33)
[2024-02-22] MEDS: Acetaminophen 1,000 MG/100 ML PIGGYBACK 16.7 MG IV ×2 (15:08→20:40)
[2024-02-22] MEDS: 0.9 % Sodium Chloride Flush 3 ML SYRINGE IVFLUSH (20:06)
[2024-02-22] MEDS: Famotidine/PF 20 MG/2 ML VIAL IVPUSH (20:06)
[2024-02-22] MEDS: HYDROmorphone HCl 0.5 MG/0.5 ML SYRINGE 0.25 MG IVPUSH (22:18)
[2024-02-22] MEDS: ondansetron HCL 4 MG/2 ML VIAL IVPUSH (22:20)
[2024-02-23] MEDS: Acetaminophen 1,000 MG/100 ML PIGGYBACK 16.7 MG IV (01:49)
[2024-02-23 03:22] VITALS: BP 131/85; PULSE 57; RESP 18; TEMP 36.7; O2SAT 99
[2024-02-23 05:28] LABS: MANUAL DIFF FLAG NO
[2024-02-23 05:33] LABS: Basophils Percent Auto 0.1 % (0-2); Hematocrit 32.2 % (37.0-47.0); Hemoglobin 11.5 g/dl (12.0-16.0); Imm Gran Abs Auto 0.05 X10*3/uL (0.00-0.03); Imm Gran Pct Auto 0.5 % (0.0-0.4); Lymphocytes Absolute Auto 0.7 X10*3/uL (1.2-4.9); Lymphocytes Percent Auto 6.9 % (20-40); Mean Corpuscular HGB Conc 35.7 g/dl (31.0-35.0); Mean Corpuscular Hemoglobin 31.8 pg (27.0-33.0); Mean Platelet Volume 11.5 fL (9.4-12.3); Monocytes Absolute Auto 0.4 X10*3/uL (0.1-1.2); Monocytes Percent Auto 3.9 % (2-11); Neutrophils Absolute Auto 8.8 x10*3/uL (2.0-8.3); Neutrophils Percent Auto 88.6 % (45-73); Platelet Count 235 X10*3/uL (160-400); Red Blood Count 3.62 X10*6/uL (4.20-5.50); Red Cell Distribution Width 12.2 % (11.0-16.0)
[2024-02-23 05:43] LABS: Anion Gap 14 (12-20); Blood Urea Nitrogen 9 mg/dL (9-16); Calcium 9.3 mg/dL (8.4-10.2); Carbon Dioxide 19 mmol/L (22-29); Chloride 108 mmol/L (96-108); Creatinine Clr Calc Pharmacy 156.2; Estimated Glomerular Filt Rate > 60; Glucose Random 118 mg/dL (60-115); Potassium 3.8 mmol/L (3.3-5.1); Sodium 137 mmol/L (135-145)
[2024-02-23] MEDS: HYDROmorphone HCl 0.5 MG/0.5 ML SYRINGE 0.25 MG IVPUSH (05:54)
[2024-02-23 07:20] VITALS: BP 125/73; PULSE 53; RESP 14; TEMP 36.3; O2SAT 97
[2024-02-23] MEDS: Famotidine/PF 20 MG/2 ML VIAL IVPUSH (08:37)
--- NOTE | 2024-02-23 08:49 | PC.NURSE ---
IV removed by GODWIN Wiseman,discharge instructions explained to patient by GODWIN Sal
--- NOTE | 2024-02-23 13:59 | HO.POSTANES ---
Post Anesthesia Evaluation Post Anesthesia Evaluation Date of Service: 02/23/24 Vital Signs: Vital Signs Temp Pulse Resp BP Pulse Ox O2 Del Method 02/23/24 08:37 Room Air 02/23/24 07:20 97.4 F 53 14 125/73 97 Room Air 02/23/24 03:22 98.1 F 57 18 131/85 99 Room Air Anesthesia: General Endotracheal-GETA Mental Status: Awake Pain Control: Satisfactory Nausea/Vomiting: None Hydration: Adequate Anesthesia-Related Issues: No Anes. Related Issues
== END 2024-02-23 08:53 | disposition home or self-care (01) | DRG 403 ==
LOC: HO.SSSA 12:01 → HO.S3 12:29
PROVIDERS: Nurse Practitioner; Physician Assistant Surgical; Admitting Provider Surgery; Visit Provider Surgery
PROC: 0DB64Z3 Excision of Stomach, Percutaneous Endoscopic Approach, Vertical (ICD-10-PCS; CPT 43845; principal; 2024-02-22 08:50)
DX: E66.01 Morbid (severe) obesity due to excess calories (principal); K74.00 Hepatic fibrosis, unspecified; Q43.3 Congenital malformations of intestinal fixation; G47.33 Obstructive sleep apnea (adult) (pediatric); Z68.36 Body mass index [BMI] 36.0-36.9, adult; K21.9 Gastro-esophageal reflux disease without esophagitis; K76.0 Fatty (change of) liver, not elsewhere classified; Z79.899 Other long term (current) drug therapy
CPT/HCPCS: 36415; 80048; 81025; 85014; 85018; 85025; 86850; 86900; 86901; 88304; 88305; 88307; 88342; 94660; A4649; C9145; J0131; J0690; J1100; J1170; J2250; J2405; J2704; J2795; J3010; J7120

== ENCOUNTER → 2024-02-22 07:41 | Outpatient (BNV) | payer OTHER, SELFPAY | PROVIDERS: Admitting Provider Surgery; Visit Provider Surgery | DX: E66.9 Obesity, unspecified (principal); Z68.36 Body mass index [BMI] 36.0-36.9, adult; Z98.84 Bariatric surgery status | CPT/HCPCS: 43659; 43775; 99024; 99499 ==

== ENCOUNTER 2024-02-29 14:49 | Outpatient (AMB) | payer OTHER, SELFPAY ==
--- NOTE | 2024-02-29 14:52 | MHC.OFFVISWM ---
VS Expanded 02/29/24 14:58 BP 114/70 Blood Pressure Location Lt brachial Blood Pressure Position Sitting Pulse 68 Pulse Source Pulse Oximeter Pulse Oximetry 100 Height 5 ft 7 in Weight 214 lb 6.4 oz BMI 33.6 Body Fat % 46.2 Body Fat Mass 99.2 Fat Free Mass 115.4 Visceral Fat Rating 9.0 Body Water % 38.6 Body Water Mass 82.8 Muscle Mass/Score 109.6 Basal Metabolic Rate/Score 1,663 Intake Visit Reasons: (OV) PO LSG 02/22/24 Intake Note: Eliseo presents in the office as a PO LSG. Allergies morphine Allergy (Severe, Verified 02/29/24 14:53) Tachycardia, Shakiness HPI Comments Details: Pleasant 28-year-old female returns to the office today in follow-up. She is 7 days post sleeve gastrectomy performed on 02/22/2024. She states that she has her meal plan change today to include celebrate 4 in 1 2 scoops x2 and celebrate rebuild 2 scoops x1. She is drinking approximately 24 oz of water. She had a bowel movement. Offers no complaints of pain. 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 Original weight on 11/01/2023 was 255.2 pounds and op weight was 213.4 pounds. Be sure to text Dr Perry exactly 1 week after surgery your weight from your home scale so he can adjust your meal plan. Continue meal plan until f/u emma Li in 2 weeks May shower, no submersion in bath for another week Continue abdominal binder with activity and exercise for the next 2 weeks. Exercise prior to surgery was treadmill and may resume No abdominal exercises for 6 weeks post operatively Will be emailed link to post op video for review Reminded of the pace of drinking, 2 mL per minute, 1 oz/15 min.
[2024-02-29 14:58] VITALS: BP 114/70; PULSE 68; O2SAT 100; BMI 33.6
== END 2024-02-29 15:35 | disposition home or self-care (01) ==
PROVIDERS: Visit Provider Physician Assistant Surgical
DX: Z98.84 Bariatric surgery status (principal)
CPT/HCPCS: 99024

== ENCOUNTER → 2024-02-29 14:49 | Outpatient (BNVA) | payer OTHER, SELFPAY | PROVIDERS: Visit Provider Physician Assistant Surgical | DX: Z48.815 Encounter for surgical aftercare following surgery on the digestive system (principal); Z98.84 Bariatric surgery status | CPT/HCPCS: 99212 ==

== ENCOUNTER 2024-03-07 20:49 | Emergency (ER) | payer OTHER, SELFPAY ==
--- NOTE | ~2024-03-07 | CT_ITS ---
EXAMINATION: CT ABDOMEN AND PELVIS WITH CONTRAST CLINICAL INFORMATION: GI bleed 2 weeks status post gastric sleeve. COMPARISON: Abdominal chest on 12/25/2023. TECHNIQUE: Multidetector volumetric images were obtained from the superior aspect of the liver through the pubic symphysis following administration 85 mL of Omnipaque 350 intravenous contrast. Sagittal and coronal reformatted images were obtained on the technologist's workstation. Oral contrast: Utilized This CT examination was performed using dose optimization techniques as appropriate, variously including the following: *Automated exposure control *Adjustment of mA and/or kV according to patient size (this includes techniques or standardized protocols for targeted exams where dose is matched to indication/reason for exam; i.e. extremities or head) *Use of iterative reconstruction technique DLP: 799 mGy-cm FINDINGS: LUNG BASES: The visualized lung bases are unremarkable. LIVER, GALLBLADDER, AND BILIARY TREE: The liver is normal in size, shape, and attenuation. No focal hepatic lesion or biliary ductal dilatation is present. The gallbladder is unremarkable with no evidence of radiopaque gallstones, gallbladder wall thickening, or obvious pericholecystic inflammatory changes. PANCREAS: Unremarkable. SPLEEN: Unremarkable. ADRENAL GLANDS: Unremarkable. KIDNEYS AND URETERS: The kidneys are normal in size, shape, and attenuation. No hydronephrosis, hydroureter, or calculi seen. No perinephric stranding. BLADDER: Unremarkable. GASTROINTESTINAL TRACT: The appendix is not visualized. Pericecal inflammatory changes noted. Finding which may represent a diminutive appendix containing contrast within the lumen of an otherwise normal appendix is suggested at the base of the cecum (series 4 image 538). The gastric sleeve resection suture line is noted. Contrast agent is present within the lumen of the gastric remnant. No extraluminal extravasation of oral contrast agent noted. Oral contrast agent is noted in scattered small bowel segments. Trace physiologic free intraperitoneal fluid noted within the pelvic cul-de-sac. ABDOMINAL WALL: No significant hernia is appreciated. LYMPH NODES: Scattered mesenteric lymph nodes at the upper limits of normal size are incidentally noted. VASCULAR: Unremarkable. PELVIC VISCERA: Normal uterus. No adnexal lesions. OSSEOUS STRUCTURES: Osteitis condensans ilii. CT/CT abdomen pelvis w IV con IMPRESSION: 1. Status post gastric sleeve resection. 2. Status post cholecystectomy. 3. No acute abnormalities identified. No findings to correlate with a history of gastrointestinal hemorrhage. Electronically signed by: Jacinto Mix MD 03/08/2024 01:40 AM EDT RP
[2024-03-07 20:56] VITALS: BP 118/75; PULSE 78; RESP 18; O2SAT 99; BMI 33.2
[2024-03-07 21:34] LABS: Hematocrit 33.5 % (37.0-47.0); Hemoglobin 12.5 g/dl (12.0-16.0); Mean Corpuscular HGB Conc 37.3 g/dl (31.0-35.0); Mean Corpuscular Hemoglobin 32.1 pg (27.0-33.0); Mean Corpuscular Volume 86.1 fL (80.0-98.0); Mean Platelet Volume 11.9 fL (9.4-12.3); Platelet Count 239 X10*3/uL (160-400); Red Blood Count 3.89 X10*6/uL (4.20-5.50); Red Cell Distribution Width 13.2 % (11.0-16.0); White Blood Count 12.1 X10*3/uL (4.8-10.8)
[2024-03-07 21:39] LABS: INTERNATIONAL NORM RATIO 1.2 (0.9-1.1); Prothrombin Time 14.3 SEC (10.9-12.4)
[2024-03-07 21:48] LABS: Alanine Aminotransferase 11 U/L (0-31); Albumin Level 4.5 g/dL (3.5-5.0); Alkaline Phosphatase 33 U/L (39-117); Anion Gap 17 (12-20); Aspartate Amino Transferase 14 U/L (5-31); Bilirubin Direct 0.3 mg/dL (0.0-0.5); Bilirubin Total 0.9 mg/dL (0.0-1.0); Blood Urea Nitrogen 11 mg/dL (9-16); Calcium 9.8 mg/dL (8.4-10.2); Carbon Dioxide 19 mmol/L (22-29); Chloride 107 mmol/L (96-108); Creatinine Clr Calc Pharmacy 145.3; Estimated Glomerular Filt Rate > 60; Glucose Random 88 mg/dL (60-115); Lipase 35 U/L (8-78); Magnesium 1.8 mg/dL (1.6-2.6); Potassium 3.2 mmol/L (3.3-5.1); Sodium 140 mmol/L (135-145); Total Protein 8.3 g/dL (6.5-8.0)
[2024-03-07 21:57] LABS: HCG Quantitative < 2 mIU/mL
[2024-03-07 22:21] LABS: Appearance Urine Clear; Color Urine Yellow; Glucose Urine UA Negative (Negative); Leukocyte Esterase Urine Small (1+) (Negative); Nitrite Urine Negative (Negative); OBS Int Ctl Valid YES; OBS1 POSITIVE (NEGATIVE); UMIC TRIGGER UACC YES; Urine Blood Trace (Negative); Urine Ketones >=160 mg/dL (Negative); Urine Protein Trace mg/dL (Neg-Trace)
[2024-03-07 22:30] LABS: Bacteria Urine None Seen (None Seen); Hyaline Casts Urine 0-2 /LPF (0-2); RBC Urine 0-2 /HPF (0-2); UACC Culture Trigger YES; WBC Urine 0-5 /HPF (0-5)
--- NOTE | 2024-03-07 22:49 | ED_ITS ---
HPI - Abdominal Pain General Chief Complaint: Abdominal Pain Stated Complaint: abd surgery 2wks today/in pain Time Seen by Provider: 03/07/24 21:50 Source: patient Mode of arrival: ambulatory Limitations: no limitations History of Present Illness ED Provider: Dr. Negrita Lewis HPI narrative: Patient comes to the emergency room complaining of intermittent abdominal pain in bowel movements with blood. Patient states that on 02/22/2024, patient had a gastric sleeve surgery. Patient states that her recovery has been uneventful until today 5 hours ago. Patient states she started having a pulling abdominal pain, nausea in a bloody bowel movement, soft stool. Not diarrhea. Patient states that lady she has been having anal discomfort secondary to hemorrhoids. Patient states that she has been following her diet with protein shakes. Denies any abdominal trauma. Related Data Home Medications ?Medication ?Instructions ?Recorded ?Confirmed ondansetron 4 mg disintegrating 4 mg PO Q12H PRN nausea and 02/22/24 02/22/24 tablet vomiting Previous Rx's ?Medication ?Instructions ?Recorded pantoprazole 40 mg tablet,delayed 40 mg PO DAILY #90 tabs 02/16/24 release sucralfate 100 mg/mL oral 10 ml PO BID #600 mL 02/16/24 suspension Allergies Allergy/AdvReac Type Severity Reaction Status Date / Time morphine Allergy Severe Tachycardia, Verified 03/07/24 20:59 Shakiness Review of Systems Review of Systems Constitutional : No Weight loss, No Fever, No Chills, No Night Sweats, No Fatigue, No Malaise ENT/Mouth : No Hearing loss, No Ear Pain, No Nasal Congestion, No Sinus Pain, No Hoarseness, No sore throat, No Rhinorrhea, No Swallowing Difficulty Eyes: No Eye Pain, No Swelling, No Redness, No Foreign Body, No Discharge, No Vision Changes Cardiovascular : No Chest Pain, No SOB, No Dyspnea on Exertion, No Orthopnea, No Edema, No Palpitations Respiratory : No Cough, No Sputum, No Wheezing, No Smoke Exposure, No Dyspnea Gastrointestinal : Complaining of nausea, no vomiting or diarrhea, 1 episode of soft stool with blood, complaining of pulling sensation in the abdomen, pain an external hemorrhoid Genitourinary : no irregular bleeding, No Dysuria, No Urinary Frequency, No Hematuria, No Urinary Incontinence, No Urgency, No Flank Pain, No Urinary Flow Changes, No Hesitancy Musculoskeletal : No joint pain, No Myalgias, No Joint Swelling Skin : No Skin Lesions, No rash Neuro : No Weakness, No Numbness, No Paresthesias, No Loss of Consciousness, No Dizziness, No Headache Psych : No Anxiety/Panic, No Depression, No SI/HI/AH/VH, No Social Issues, Heme/Lymph: No Bruising, No Bleeding,No Lymphadenopathy Endocrine : No Polyuria, No Polydipsia, No Temperature Intolerance [facility] Past Medical History Medical History Pre-op evaluation MAYRA (obstructive sleep apnea) Morbid obesity Surgical History (Updated 03/08/24 @ 00:03 by Wojciech Hannah) History of surgery on lower extremity Social History Social History Household Members: Significant Other Household Members Other:: minor children Housing: Apartment Are you a primary care taker to a significant other at home: Yes (minor children) Do you presently have visiting nurse or other home services: No Patient Tobacco Use Status: Never used Tobacco Advance Directives: No Advance Directives Information Provided: Yes Physical Exam ED Vital Signs: Vital Signs - 24 hr 03/07/24 20:56 03/07/24 23:48 03/08/24 02:01 Temperature 98.3 F 97.9 F Pulse Rate 78 64 70 Respiratory Rate 18 18 16 Blood Pressure 118/75 98/61 100/80 Pulse Oximetry 99 97 99 Oxygen Delivery Method Room Air Room Air Room Air BMI result Body Mass Index 33.2 Const Other: Appearance: Alert. Oriented X3. No acute distress. Eyes: Pupils equal, round and reactive to light. ENT: Pharynx normal. Neck: Normal inspection. Neck supple. No lymph nodes noted. No crepitus CVS: Normal heart rate and rhythm. Pulses normal. Normal S1 and S2 Respiratory: No respiratory distress. Breath sounds normal. No Wheezing. No rales Abdomen: Soft , no significant tenderness on palpation, there are small non thrombosed hemorrhoids in the anus, maroon color stool on rectal exam Skin: Skin warm and dry. Normal skin color. Normal skin turgor. Extremities: No lower extremity edema. No Lacerations. No Rash Neuro: Oriented X 3. No motor deficit. No sensory deficit. Moving all extremities. No slurred speech. CN 2 through 12 grossly intact Psych: calm, cooperative, normal affect Course Course Course Narrative: All of patient's labs pending Patient will need CT scan p.o. and with IV contrast, maximum of 3 oz/90 mL of contrast -I was informed by the patient's tech that they were able to see a bowel movement. Patient had a soft bowel movement yellowish with minimal amount of blood but it was present. After that, patient has not had any further bowel movements. Medical Decision Making Medical Decision Making [facility] Narrative: My interpretation of labs, patient's white blood cell count 12.1, likely reactive leukocytosis from surgery, no source of infection. Chemistry shows potassium of 3.2 Patient has no significant pain at this time, declined pain medication -CT scan does not show any acute abnormality. -I discussed the findings with PA from bariatric surgery Guillermo Montero, who discussed the patient and labs/radiology findings with Dr. Perry -patient may go home, follow-up in the office -here in the emergency room, patient has not moved her bowels, there is no signs of bleeding. Patient keeps declining pain medication. Differential Diagnosis Differential Diagnoses: The differential diagnosis associated with the presentation includes (External versus internal hemorrhoids, colitis) Admission/Observation Consideration of admission/observation: Escalation of care including admission/observation considered (Given patient's symptoms, admission/observation was considered.) Consult Healthcare Provider Management of the patient was discussed with: Coil Builder Lab Data [facility] Lab Attestation statement: I reviewed the patient's lab results. 03/07/24 21:27 03/07/24 21:27 Labs: Lab Results 03/07/24 03/07/24 Range/Units 21:27 22:14 WBC 12.1 H (4.8-10.8) X10*3/uL RBC 3.89 L (4.20-5.50) X10*6/uL Hgb 12.5 (12.0-16.0) g/dl Hct 33.5 L (37.0-47.0) % MCV 86.1 (80.0-98.0) fL MCH 32.1 (27.0-33.0) pg MCHC 37.3 H (31.0-35.0) g/dl RDW 13.2 (11.0-16.0) % Plt Count 239 (160-400) X10*3/uL MPV 11.9 (9.4-12.3) fL Absolute Nucleated RBC 0.000 (0.0-0.012) X10*3/uL Nucleated RBC % (auto) 0.0 (0.0-0.2) /100WBC PT 14.3 H (10.9-12.4) SEC INR 1.2 H (0.9-1.1) Sodium 140 (135-145) mmol/L Potassium 3.2 L (3.3-5.1) mmol/L Chloride 107 (96-108) mmol/L Carbon Dioxide 19 L (22-29) mmol/L Anion Gap 17 (12-20) BUN 11 (9-16) mg/dL Creatinine 0.68 (0.5-1.4) mg/dL Estim Creat Clear Calc 145.3 Estimated GFR > 60 Random Glucose 88 (60-115) mg/dL Calcium 9.8 (8.4-10.2) mg/dL Magnesium 1.8 (1.6-2.6) mg/dL Total Bilirubin 0.9 (0.0-1.0) mg/dL Direct Bilirubin 0.3 (0.0-0.5) mg/dL AST 14 (5-31) U/L ALT 11 (0-31) U/L Alkaline Phosphatase 33 L (39-117) U/L Total Protein 8.3 H (6.5-8.0) g/dL Albumin 4.5 (3.5-5.0) g/dL Lipase 35 (8-78) U/L Beta HCG, Quant < 2 mIU/mL Urine Color Yellow Urine Appearance Clear Urine pH 6.0 (5.0-9.0) Ur Specific P[place]ree 1.020 (1.005-1.025) Urine Protein Trace (Neg-Trace) mg/dL Urine Glucose (UA) Negative (Negative) mg/dL Urine Ketones >=160 (Negative) mg/dL Urine Blood Trace H (Negative) Urine Nitrite Negative (Negative) Ur Leukocyte Esterase Small (1+) H (Negative) Urine RBC 0-2 (0-2) /HPF Urine WBC 0-5 (0-5) /HPF Ur Squamous Epith Cells 3-5 (0-2) /HPF Urine Bacteria None Seen (None Seen) Hyaline Casts 0-2 (0-2) /LPF Stool Occult Blood POSITIVE (NEGATIVE) Independent Interpretation I performed an independent interpretation of an: CT Scan Radiology Impression Discussion of test interpretation with radiology: I have reviewed the radiologist's reading. Radiologist Impression: FINDINGS: LUNG BASES: The visualized lung bases are unremarkable. LIVER, GALLBLADDER, AND BILIARY TREE: The liver is normal in size, shape, and attenuation. No focal hepatic lesion or biliary ductal dilatation is present. The gallbladder is unremarkable with no evidence of radiopaque gallstones, gallbladder wall thickening, or obvious pericholecystic inflammatory changes. PANCREAS: Unremarkable. SPLEEN: Unremarkable. ADRENAL GLANDS: Unremarkable. KIDNEYS AND URETERS: The kidneys are normal in size, shape, and attenuation. No hydronephrosis, hydroureter, or calculi seen. No perinephric stranding. BLADDER: Unremarkable. GASTROINTESTINAL TRACT: The appendix is not visualized. Pericecal inflammatory changes noted. Finding which may represent a diminutive appendix containing contrast within the lumen of an otherwise normal appendix is suggested at the base of the cecum (series 4 image 538). The gastric sleeve resection suture line is noted. Contrast agent is present within the lumen of the gastric remnant. No extraluminal extravasation of oral contrast agent noted. Oral contrast agent is noted in scattered small bowel segments. Trace physiologic free intraperitoneal fluid noted within the pelvic cul-de-sac. ABDOMINAL WALL: No significant hernia is appreciated. LYMPH NODES: Scattered mesenteric lymph nodes at the upper limits of normal size are incidentally noted. VASCULAR: Unremarkable. PELVIC VISCERA: Normal uterus. No adnexal lesions. OSSEOUS STRUCTURES: Osteitis condensans ilii. CT/CT abdomen pelvis w IV con IMPRESSION: 1. Status post gastric sleeve resection. 2. Status post cholecystectomy. 3. No acute abnormalities identified. No findings to correlate with a history of gastrointestinal hemorrhage. Medications Administered Discontinued Medications Generic Name Dose Route Start Last Admin Trade Name Freq PRN Reason Stop Dose Admin Diatrizoate Meglum/Diatrizoate Sod 30 ml 03/08/24 00:25 03/08/24 00:26 Diatrizoate Meglumine, Sodium 30 Ml Solution PO 03/08/24 00:26 30 ml ONCE ONE Administration Iohexol 85 ml 03/08/24 00:26 03/08/24 00:27 Iohexol 350 Mg/Ml 100 Ml Infus..Btl IV 10/11/24 00:27 85 ml ONCE ONE Administration Potassium Chloride 20 meq 03/07/24 23:03 03/08/24 00:50 Potassium Chloride Er 20 Meq Tab.Er.Prt PO 03/07/24 23:04 20 meq ONCE ONE Administration Critical Care Time Critical Care Time Critical Care Time: Yes Total Critical Care Time: 60 Attestation: I have personally provided critical care time. Time includes review of lab data, radiology results, discussion with consultants, and monitoring for potential decompensation. Intervention performed as documented. Discharge Plan Discharge Clinical Impression: Abdominal pain, Rectal bleed Patient Disposition: Home, Self-Care Instructions: Hemorrhoids (ED), Abdominal Pain (ED) Additional Instructions: Please follow-up with your primary care physician tomorrow. If you have any worsening or new symptoms, please return to the emergency room or call 911 Prescriptions: No Action ondansetron 4 mg tablet,disintegrating 4 mg PO Q12H PRN (Reason: nausea and vomiting) Rx Instructions: Only take one every 12 hours as needed if you have nausea pantoprazole 40 mg tablet,delayed release (DR/EC) 40 mg PO DAILY Qty: 90 0RF sucralfate 100 mg/mL suspension 10 ml PO BID Qty: 600 2RF Referrals: Maycol Perry MD [Physician] - Print Language: Latvian
[2024-03-07 23:48] VITALS: BP 98/61; PULSE 64; RESP 18; TEMP 36.8; O2SAT 97
[2024-03-08] MEDS: Diatrizoate Meglumine, Sodium 30 ML SOLUTION PO (00:26)
[2024-03-08] MEDS: iohexoL 350 MG/ML 100 ML INFUS..BTL 85 ML IV (00:27)
[2024-03-08] MEDS: Potassium Chloride ER 20 MEQ TAB.ER.PRT PO (00:50)
[2024-03-08 02:01] VITALS: BP 100/80; PULSE 70; RESP 16; TEMP 36.6; O2SAT 99
[2024-03-08 03:56] VITALS: BP 96/53; PULSE 63; RESP 18; TEMP 36.9; O2SAT 97
[2024-03-08 05:05] VITALS: BP 96/53; PULSE 63; RESP 18; TEMP 36.9; O2SAT 97
== END 2024-03-08 04:10 | disposition home or self-care (01) ==
PROVIDERS: Emergency Provider Emergency Medicine
DX: K62.5 Hemorrhage of anus and rectum (principal); R10.2 Pelvic and perineal pain; Z98.84 Bariatric surgery status; Z79.899 Other long term (current) drug therapy
CPT/HCPCS: 36415; 74177; 80048; 80076; 81001; 82272; 83690; 83735; 84702; 85027; 85610; 87086; 99284; Q9967

== ENCOUNTER 2024-05-06 11:07 | Outpatient (AMB) | payer OTHER, SELFPAY ==
--- NOTE | 2024-05-06 11:13 | MHC.OFFVISWM ---
VS Expanded 05/06/24 11:23 BP 119/56 L Blood Pressure Location Rt brachial Blood Pressure Position Sitting Pulse 70 Pulse Source Pulse Oximeter Temp 98.0 F Temperature Source Temporal Artery Scan Pulse Oximetry 98 Oxygen Delivery Method Room Air Height 5 ft 7 in Weight 190 lb 6.4 oz BMI 29.8 Body Fat % 40.2 Body Fat Mass 76.6 Fat Free Mass 113.8 Visceral Fat Rating 6.0 Body Water % 43.0 Body Water Mass 81.8 Muscle Mass/Score 108.0 Basal Metabolic Rate/Score 1,606 Intake Visit Reasons: (OV) PO LSG 02/22/24 Typists Supervisor Required: No Allergies morphine Allergy (Severe, Verified 05/06/24 11:15) Tachycardia, Shakiness Medication List - Last Reconciled 05/06/24 by CATHERINE Cleveland pantoprazole 40 mg PO DAILY sucralfate 10 mL PO BID HPI Comments Details: This?a?28?yo female who is s/p LSG without hiatal hernia repair on?02/22/2024. Presents for 2.5 post op visit. Weight today is 190.4 pounds, with a BMI of 29.8. There has been a 64.8 pound weight loss,(initial weight 255.2 pounds) since starting the program on 11/01/2023 reflecting a 25.3 % total body weight loss and a weight loss of 23 pounds since surgery (operative weight 213.4 pounds) reflecting a 10.7 % TBWL since surgery. No complaints of nausea, emesis, abdominal pain or reflux. Reports infrequent but normal bowel movements every [] days and uses stool softeners regularly. She was doing 2 scoops in the third shake by accident. Present meal plan includes: Celebrate rebuild 2 scoops, 8-10, 11-1 1 scoop 2-4 celebrate bar 5-8 drinking 32 oz ? Exercise routine includes: treadmill 5 days per week, 400 calories. [facility] Medical History (Updated 03/09/24 @ 00:01 by Wojciech Hannah) Pre-op evaluation MAYRA (obstructive sleep apnea) Morbid obesity Surgical History (Updated 05/06/24 @ 11:15 by Meeankshi Cordero CMA) S/P laparoscopic sleeve gastrectomy History of surgery on lower extremity Social History Household Members: Significant Other Household Members Other:: minor children Housing: Apartment Are you a primary career development counselor to a significant other at home: Yes (minor children) Do you presently have visiting nurse or other home services: No Alcohol intake: never Patient Tobacco Use Status: Never used Tobacco Physical Exam Const General: healthy appearing and no acute distress Resp Effort & Inspection: normal respiratory effort Auscultation: clear to auscultation bilaterally Cardio Rate: regular rate Rhythm: regular rhythm GI Auscultation: normal bowel sounds Extrem General: Yes normal to inspection Assessment & Plan Assessment & Plan (1) S/P laparoscopic sleeve gastrectomy: Code(s): Z98.84 - Bariatric surgery status Category: Surgical Plan: We discussed the meal plan. Patient will reduce her scoop in the 3rd shake to 1 scoop as instructed by Dr. Perry. Change to doing weight training 1st then cardio. Continue burning approximately 400-450 calories per day. Return to clinic in 1 month.
[2024-05-06 11:23] VITALS: BP 119/56; PULSE 70; TEMP 36.7; O2SAT 98; BMI 29.8
== END 2024-05-06 11:56 | disposition home or self-care (01) ==
PROVIDERS: Visit Provider Physician Assistant Surgical
DX: Z98.84 Bariatric surgery status (principal)
CPT/HCPCS: 99024

== ENCOUNTER → 2024-05-06 11:07 | Outpatient (BNVA) | payer OTHER, SELFPAY | PROVIDERS: Visit Provider Physician Assistant Surgical | DX: Z48.815 Encounter for surgical aftercare following surgery on the digestive system (principal); Z98.84 Bariatric surgery status | CPT/HCPCS: 99212 ==

== ENCOUNTER 2024-06-10 10:43 | Outpatient (AMB) | payer OTHER, SELFPAY ==
--- NOTE | 2024-06-10 10:34 | MHC.OFFVISWM ---
VS Expanded 06/10/24 10:35 Height 5 ft 7 in Weight 182 lb 6 oz BMI 28.6 Body Fat % 23.1 Fat Free Mass 140.4 Visceral Fat Rating 11 Body Water % 52.8 Muscle Mass/Score 132 Basal Metabolic Rate/Score 1,741 Intake Visit Reasons: (TV) PO LSG 02/22/24 Supervisor Inventory Merchandising Required: No Allergies morphine Allergy (Severe, Verified 05/06/24 11:15) Tachycardia, Shakiness Medication List - Last Reconciled 06/10/24 by CATHERINE Cleveland HPI Comments Details: This?a?28?yo female who is s/p LSG without hiatal hernia repair on?02/22/2024. Presents for 3.5 post op visit. Weight today is 182.6 pounds, with a BMI of 28.6. There has been a 72.6 pound weight loss,(initial weight 255.2 pounds) since starting the program on 11/01/2023 reflecting a 28.4 % total body weight loss and a weight loss of 30.8 pounds since surgery (operative weight 213.4 pounds) reflecting a 14.4 % TBWL since surgery. No complaints of nausea, emesis, abdominal pain or reflux. Reports infrequent but normal bowel movements every 2-3 days and uses stool softeners regularly. Taking celebrate MVI She states that she is following the meal plan exactly. She was in [place] for 3 weeks and couldn't follow it exactly as sometimes she was out and couldn't do that and her meal portions were not exact. Returned last monday and restarted again. Present meal plan includes: Celebrate rebuild 2 scoops, 8-10, 11-1 1 scoop 2-4 celebrate bar 5-8 drinking 32 oz ? Exercise routine includes: PF, treadmill 5 days per week, [address] [facility] Medical History (Updated 03/09/24 @ 00:01 by Wojciech Hannah) Pre-op evaluation MAYRA (obstructive sleep apnea) Morbid obesity Surgical History (Updated 05/06/24 @ 11:15 by Meenakshi Cordero CMA) S/P laparoscopic sleeve gastrectomy History of surgery on lower extremity Social History Household Members: Significant Other Household Members Other:: minor children Housing: Apartment Are you a primary daycare teacher to a significant other at home: Yes (minor children) Do you presently have visiting nurse or other home services: No Alcohol intake: never Patient Tobacco Use Status: Never used Tobacco Telehealth Telehealth Telehealth Platform: Telephone Location of provider rendering services: practice address Location of patient: other Patient Identification confirmed using: Name, : Yes Telehealth method: voice only Patient verbally consented to treatment: Yes Patient verbally consented to billing insurance company: Yes Patient informed of any privacy concerns related to visit: Yes Minutes spent on Phone/Video with Pt.: 12 Assessment & Plan Assessment & Plan (1) S/P laparoscopic sleeve gastrectomy: Code(s): Z98.84 - Bariatric surgery status Category: Surgical Plan: [place] was [place] of [place] weeks due to family emergency. She has now returned and is returning to her meal plan. She will continue, texting weekly with her weight and with any questions or concerns. Return to the office as scheduled.
[2024-06-10 10:35] VITALS: BMI 28.6
== END 2024-06-10 10:50 | disposition home or self-care (01) ==
LOC: HO.HBS 10:43
PROVIDERS: Visit Provider Physician Assistant Surgical
DX: E66.3 Overweight (principal); Z68.28 Body mass index [BMI] 28.0-28.9, adult; Z90.3 Acquired absence of stomach [part of]; Z98.84 Bariatric surgery status
CPT/HCPCS: 98967

== ENCOUNTER → 2024-06-10 10:43 | Outpatient (BNVA) | payer OTHER, SELFPAY | PROVIDERS: Visit Provider Physician Assistant Surgical ==

== ENCOUNTER 2024-07-19 09:30 | Outpatient (AMB) | payer OTHER, SELFPAY ==
[2024-07-19 08:09] VITALS: BMI 25.0
--- NOTE | 2024-07-19 08:09 | A.OFFVIS_ITS ---
VS Expanded 07/19/24 08:09 Height 5 ft 7 in Weight 159 lb 6 oz BMI 25.0 Body Fat % 19.7 Fat Free Mass 128.2 Visceral Fat Rating 7 Body Water % 55.1 Muscle Mass/Score 120.4 Basal Metabolic Rate/Score 1,622 Intake Visit Reasons: (TV) PO LSG 02/22/24 [employer] Required: No Allergies morphine Allergy (Severe, Verified 05/06/24 11:15) Tachycardia, Shakiness Medication List - Last Reconciled 07/19/24 by CATHERINE Cleveland No Known Home Meds HPI Comments Details: This?a?28?yo female who is s/p LSG without hiatal hernia repair on?02/22/2024. Presents for 5 month post op visit. Weight today is 159.6 pounds, with a BMI of 25. There has been a 95.6 pound weight loss,(initial weight 255.2 pounds) since starting the program on 11/01/2023 reflecting a 37.4 % total body weight loss and a weight loss of 53.8 pounds since surgery (operative weight 213.4 pounds) reflecting a 25.2 % TBWL since surgery. No complaints of nausea, emesis, abdominal pain or reflux. Reports infrequent but normal bowel movements every 2- 3 days and uses stool softeners regularly. Taking celebrate MVI She states that she is feeling great and has no complaints. Following the meal plan, wants to change bar for a meal. She is having extra skin of her abdomen and arms. She has had increase in itch and rash to her abdomen. She has not noticed an odor. She had a burning sensation to the abdomen during the rash. She applied ant-itch lotion with improvement. She also states her clothes have not been an issue as she has been using stretchy clothes. Re: her arms, she has extra skin and this has caused clothing to not fit well. Present meal plan includes: Celebrate rebuild 2 scoops, 8-10, 11-1 in 8 oz almond milk 1 scoop 2-4 celebrate bar 5-8 drinking 48 oz ? Exercise routine includes: PF, weights then treadmill 5 days per week, 500 calories. [facility] Medical History Pre-op evaluation MAYRA (obstructive sleep apnea) Morbid obesity Surgical History S/P laparoscopic sleeve gastrectomy History of surgery on lower extremity Social History Household Members: Significant Other Household Members Other:: minor children Housing: Apartment Are you a primary companion caregiver to a significant other at home: Yes (minor children) Do you presently have visiting nurse or other home services: No Alcohol intake: never Patient Tobacco Use Status: Never used Tobacco Telehealth Telehealth Telehealth Platform: Telephone Location of provider rendering services: practice address Location of patient: other Patient Identification confirmed using: Name, : Yes Telehealth method: voice only Patient verbally consented to treatment: Yes Patient verbally consented to billing insurance company: Yes Patient informed of any privacy concerns related to visit: Yes Minutes spent on Phone/Video with Pt.: 15 Assessment & Plan Assessment & Plan (1) S/P laparoscopic sleeve gastrectomy: Code(s): Z98.84 - Bariatric surgery status Category: Surgical Plan: Overall, patient is doing very well. She has achieved a healthy weight. She does wish to change her meal plans slightly to add a meal in the evening: Celebrate rebuild 2 scoops, 8-10, 11-1 in 8 oz almond milk 1 scoop 2-4 Meal at 17:00 with 5 forks of protein and 5 forks of vegetables Continue exercise as she is doing. We will order six-month postop labs for her to get done prior to her next appointment in approximately 6 weeks. (2) Excess skin: Code(s): L98.7 - Excessive and redundant skin and subcutaneous tissue Category: Medical Plan: Given her extensive weight loss, patient has developed excess skin of her abdomen in her arms. She has had an intermittent rash for which she has applied an anti-itch cream. We will see her in the office in approximately 6 weeks, consideration for prescriptive antifungal. Consideration for medically necessary skin removal surgery. Orders: Orders IRON PROFILE Today E50.9 - Vitamin A deficiency, unspecified, E55.9 - Vitamin D deficiency, unspecified, E60 - Dietary zinc deficiency, K76.0 - Fatty (change o f) liver, not elsewhere classified, Z98.84 - Bariatric surgery status Vitamin B12 and Folate Today E50.9 - Vitamin A deficiency, unspecified, E55.9 - Vitamin D deficiency, unspecified, E60 - Dietary zinc deficiency, K76.0 - Fatty (change of) liver, not elsewhere classified, Z98.84 - Bariatric surgery status Vitamin B1 Today E50.9 - Vitamin A deficiency, unspecified, E55.9 - Vitamin D deficiency, unspecified, E60 - Dietary zinc deficiency, K76.0 - Fatty (change of) liver, not elsewhere classified, Z98.84 - Bariatric surgery status TSH reflex Free T4 Today E50.9 - Vitamin A deficiency, unspecified, E55.9 - Vitamin D deficiency, unspecified, E60 - Dietary zinc deficiency, K76.0 - Fatty (change of) liver, not elsewhere classified, Z98.84 - Bariatric surgery status Insulin Today E50.9 - Vitamin A deficiency, unspecified, E55.9 - Vitamin D deficiency, unspecified, E60 - Dietary zinc deficiency, K76.0 - Fatty (change of) liver, not elsewhere classified, Z98.84 - Bariatric surgery status Hemoglobin A1c Today E50.9 - Vitamin A deficiency, unspecified, E55.9 - Vitamin D deficiency, unspecified, E60 - Dietary zinc deficiency, K76.0 - Fatty (change of) liver, not elsewhere classified, Z98.84 - Bariatric surgery status Complete Blood Count Auto Diff Today E50.9 - Vitamin A deficiency, unspecified, E55.9 - Vitamin D deficiency, unspecified, E60 - Dietary zinc deficiency, K76.0 - Fatty (change of) liver, not elsewhere classified, Z98.84 - Bariatric surgery status Lipid Panel Today E50.9 - Vitamin A deficiency, unspecified, E55.9 - Vitamin D deficiency, unspecified, E60 - Dietary zinc deficiency, K76.0 - Fatty (change of) liver, not elsewhere classified, Z98.84 - Bariatric surgery status Comprehensive Met. Panel Today E50.9 - Vitamin A deficiency, unspecified, E55.9 - Vitamin D deficiency, unspecified, E60 - Dietary zinc deficiency, K76.0 - Fatty (change of) liver, not elsewhere classified, Z98.84 - Bariatric surgery status Zinc Today E50.9 - Vitamin A deficiency, unspecified, E55.9 - Vitamin D deficiency, unspecified, E60 - Dietary zinc deficiency, K76.0 - Fatty (change of) liver, not elsewhere classified, Z98.84 - Bariatric surgery status C Reactive Protein Today E50.9 - Vitamin A deficiency, unspecified, E55.9 - Vitamin D deficiency, unspecified, E60 - Dietary zinc deficiency, K76.0 - Fatty (change of) liver, not elsewhere classified, Z98.84 - Bariatric surgery status Vitamin A Today E50.9 - Vitamin A deficiency, unspecified, E55.9 - Vitamin D deficiency, unspecified, E60 - Dietary zinc deficiency, K76.0 - Fatty (change of) liver, not elsewhere classified, Z98.84 - Bariatric surgery status Ferritin Today E50.9 - Vitamin A deficiency, unspecified, E55.9 - Vitamin D deficiency, unspecified, E60 - Dietary zinc deficiency, K76.0 - Fatty (change of) liver, not elsewhere classified, Z98.84 - Bariatric surgery status Vitamin D 25-OH Total Today E50.9 - Vitamin A deficiency, unspecified, E55.9 - Vitamin D deficiency, unspecified, E60 - Dietary zinc deficiency, K76.0 - Fatty (change of) liver, not elsewhere classified, Z98.84 - Bariatric surgery status
--- OUTSIDE RECORDS SUMMARY | 2024-07-19 10:20 | XMS_ITS | Encounter Summary ---
Author Organization [facility] Address [address] [place] [id number] Care Team Providers Care Skating Carhop Name Role Phone Sridhar Barraza MD Primary Care Provider + [phone] Reason for Referral * Imaging (Routine) - Pending Review Specialty Diagnoses / Procedures Referred By Contac t Referred To Contact Radiology Diagnoses Chronic pelvic pain in female Procedures US Duplex Abdomen/Pelvis/Retro Complete Shanita Schafer DO [address] [place] [address] Phone: tel: fax: [facility] Referral ID Status Reason Start Date Expiration Date V isits Requested Visits Authorized [id number] Pending Review 07/01/2024 07/01/2025 1 1 * Imaging (Routine) - Closed Specialty Diagnoses / Procedures Referred By Bhargavi galo Referred To Contact Radiology Diagnoses Chronic pelvic pain in female Procedures US Pelvis Non OB Complete w Transvaginal Shanita Schafer DO [address] [place] [address] Phone: tel: fax: [address] [phone] Phone: tel: Referral ID Status Reason Start Date Expiration Date Visits Re quested Visits Authorized [id number] Closed 06/20/2024 06/20/2025 1 1 Reason for Visit * Imaging (Routine) - Closed Specialty Diagnoses / Procedures Referred By Contac t Referred To Contact Radiology Diagnoses Chronic pelvic pain in female Procedures US Pelvis Non OB Complete w Transvaginal [place] Shanita, [address] [facility] [place] [address] Phone: tel: fax: [facility] [address] [facility] [address] [place] Phone: tel: Referral ID Status Reason Start Date Expiration Date Visits Re quested Visits Authorized [id number] Closed 06/20/2024 06/20/2025 1 1 Encounter Details Date Type Department Care Team (Latest Contact Info) Description 07/01/2024 2:15 PM EST - 07/01/2024 11:59 PM EST [facility] [address] [place], [place] [address] [phone] Chronic pelvic pain in female Discharge Disposition: Home or Self Care Social History Tobacco Use Types Packs/Day Years Used Date Smoking Tobacco: Never Smokeless Tobacco: Never Alcohol Use Standard Drinks/Week Comments No 0 (1 standard drink = 0.6 oz pur e alcohol) Comments No Sex and Gender Information Value Date Recorded Sex Assigned at Not on file Legal Sex Female 7:33 PM EST Gender Identity Not on file Sexual Orientation Not on file documented as of this encounter Medications at Time of Discharge cholecalciferol (VITAMIN D-3) 125 mcg (5,000 unit) capsule Take 1 capsule (5,000 Units total) by mouth 1 (one) time each day. 11/13/2023 ibuprofen (ADVIL,MOTRIN) 600 mg tablet TAKE 1 TABLET BY MOUTH EVERY 6 HOURS NEEDED FOR PAIN OR FEVER 07/21/2023 pantoprazole (PROTONIX) 40 mg EC tablet Take 1 tablet (40 mg total) by mouth 1 (one) time each day. 02/16/2024 sucralfate (CARAFATE) 100 mg/mL suspension take 10 ml by mouth 2 times a day 02/27/2024 documented as of this encounter Discharge Disposition Disposition Code Departure Means Destination Home or Self Care documented in this encounter Plan of Treatment Not on file documented as of this encounter Procedures Procedure Name Priority Date/Time Associated Diagnosis Comments US PELVIS NON OB COMPLETE W TRANSVAGINAL Routine 07/01/2024 2:51 PM EST Chronic pelvic pain in female US DUPLEX ABDOMEN/PELVIS/RETRO COMPLETE Routine 07/01/2024 2:51 PM EST Chronic pelvic pain in female documented in this encounter Results * US Duplex Abdomen/Pelvis/Retro Complete (07/01/2024 2:51 PM EST) Anatomical Region Laterality Modality Body Ultrasound 07/01/2024 3:12 PM EST Impressions 07/01/2024 3:16 PM EST Mildly enlarged uterus. -------- FINAL REPORT -------- Dictated By: James Carlson Dictated Date: 07/01/2024 15:12 ET Assigned Physician: James Carlson Reviewed and Electronically Signed By: James Carlson Signed Date: 07/01/2024 15:16 ET Workstation ID: [id number] Transcribed By: Self Edit Transcribed Date: 07/01/2024 15:12 ET Narrative 07/01/2024 3:16 PM EST EXAM(s): ?? US PELVIS NON OB COMPLETE W TRANSVAGINAL, US DUPLEX ABDOMEN/PELVIS/RETRO COMPLETE COMPARISON: None HISTORY: pelvic pain FINDINGS: UTERUS: The uterus is mildly enlarged, measures 9.0 x 6.0 x 6.9 cm, volume of 195.4 cm3, and demonstrates heterogeneous myometrial echotexture. The endometrial echocomplex measures 1.2 cm in thickness. RIGHT OVARY: 3.4 x 2.3 x 2.6 cm, volume of 10.7 cm3. Unremarkable appearance. ??Contains a probable involuting corpus luteum cyst that measures 1.8 cm. Normal arterial and venous flow is demonstrated with color and spectral Doppler. LEFT OVARY: 3.1 x 1.3 x 2.3 cm, volume of 4.9 cm3. Unremarkable appearance. Normal arterial and venous flow is demonstrated with color and spectral Doppler. PELVIS: No free fluid. Procedure Note James Carlson MD - 07/01/2024 EXAM(s): US PELVIS NON OB COMPLETE W TRANSVAGINAL, US DUPLEXABDOMEN/PELVIS/RETRO COMPLETE COMPARISON: None HISTORY: pelvic pain FINDINGS: UTERUS: The uterus is mildly enlarged, measures 9.0 x 6.0 x 6.9 cm, volumeof 195.4 cm3, and demonstrates heterogeneous myometrial echotexture. Theendometrial echocomplex measures 1.2 cm in thickness. RIGHT OVARY: 3.4 x 2.3 x 2.6 cm, volume of 10.7 cm3. Unremarkableappearance. Contains a probable involuting corpus luteum cyst thatmeasures 1.8 cm. Normal arterial and venous flow is demonstrated withcolor and spectral Doppler. LEFT OVARY: 3.1 x 1.3 x 2.3 cm, volume of 4.9 cm3. Unremarkableappearance. Normal arterial and venous flow is demonstrated with color andspectral Doppler. PELVIS: No free fluid. IMPRESSION: Mildly enlarged uterus. -------- FINAL REPORT -------- Dictated By: James Carlson Dictated Date: 07/01/2024 15:12 ET Assigned Physician: James Carlson Reviewed and Electronically Signed By: James Carlson Signed Date: 07/01/2024 15:16 ET Workstation ID: [id number] Transcribed By: Self Edit Transcribed Date: 07/01/2024 15:12 ET us Shanita Schafer DO IMG US PROCEDURES Final Resul t * US Pelvis Non OB Complete w Transvaginal (07/01/2024 2:51 PM EST) Anatomical Region Laterality Modality Body, Pelvis Ultrasound 07/01/2024 3:12 PM EST Impressions 07/01/2024 3:16 PM EST Mildly enlarged uterus. -------- FINAL REPORT -------- Dictated By: James Carlson Dictated Date: 07/01/2024 15:12 ET Assigned Physician: James Carlson Reviewed and Electronically Signed By: James Carlson Signed Date: 07/01/2024 15:16 ET Workstation ID: [id number] Transcribed By: Self Edit Transcribed Date: 07/01/2024 15:12 ET Narrative 07/01/2024 3:16 PM EST EXAM(s): ?? US PELVIS NON OB COMPLETE W TRANSVAGINAL, US DUPLEX ABDOMEN/PELVIS/RETRO COMPLETE COMPARISON: None HISTORY: pelvic pain FINDINGS: UTERUS: The uterus is mildly enlarged, measures 9.0 x 6.0 x 6.9 cm, volume of 195.4 cm3, and demonstrates heterogeneous myometrial echotexture. The endometrial echocomplex measures 1.2 cm in thickness. RIGHT OVARY: 3.4 x 2.3 x 2.6 cm, volume of 10.7 cm3. Unremarkable appearance. ??Contains a probable involuting corpus luteum cyst that measures 1.8 cm. Normal arterial and venous flow is demonstrated with color and spectral Doppler. LEFT OVARY: 3.1 x 1.3 x 2.3 cm, volume of 4.9 cm3. Unremarkable appearance. Normal arterial and venous flow is demonstrated with color and spectral Doppler. PELVIS: No free fluid. Procedure Note James Carlson MD - 07/01/2024 EXAM(s): US PELVIS NON OB COMPLETE W TRANSVAGINAL, US DUPLEXABDOMEN/PELVIS/RETRO COMPLETE COMPARISON: None HISTORY: pelvic pain FINDINGS: UTERUS: The uterus is mildly enlarged, measures 9.0 x 6.0 x 6.9 cm, volumeof 195.4 cm3, and demonstrates heterogeneous myometrial echotexture. Theendometrial echocomplex measures 1.2 cm in thickness. RIGHT OVARY: 3.4 x 2.3 x 2.6 cm, volume of 10.7 cm3. Unremarkableappearance. Contains a probable involuting corpus luteum cyst thatmeasures 1.8 cm. Normal arterial and venous flow is demonstrated withcolor and spectral Doppler. LEFT OVARY: 3.1 x 1.3 x 2.3 cm, volume of 4.9 cm3. Unremarkableappearance. Normal arterial and venous flow is demonstrated with color andspectral Doppler. PELVIS: No free fluid. IMPRESSION: Mildly enlarged uterus. -------- FINAL REPORT -------- Dictated By: James Carlson Dictated Date: 07/01/2024 15:12 ET Assigned Physician: James Carlson Reviewed and Electronically Signed By: James Carlson Signed Date: 07/01/2024 15:16 ET Workstation ID: [id number] Transcribed By: Self Edit Transcribed Date: 07/01/2024 15:12 ET us Shanita Schafer DO IMG US PROCEDURES Final Resul t documented in this encounter Visit Diagnoses Diagnosis Chronic pelvic pain in female Unspecified symptom associated with female genital organs documented in this encounter Care Teams Skating Carhop Relationship Specialty Start Date End Date Sridhar Barraza MD [address] [place] [phone] PCP - General Internal Medicine 06/05/18 documented as of this encounter
--- OUTSIDE RECORDS SUMMARY | 2024-07-19 10:20 | XMS_ITS | Clinical Summary ---
Author Organization [place] [address] [address] [facility] Address [address] [place] [address] Phone Care Team Providers Care Game Operator Name Role Phone Sridhar Barraza MD Primary Care Provider [phone] Allergies Active Allergy Reactions Criticality Noted Date Comments Morphine Shortness of breath,Palpitations High Medications pantoprazole (PROTONIX) 40 mg EC tablet Take 1 tablet (40 mg total) by mouth 1 (one) time each day. 02/16/2024 Active cholecalciferol (VITAMIN D-3) 125 mcg (5,000 unit) capsule Take 1 capsule (5,000 Units total) by mouth 1 (one) time each day. 11/13/2023 Active ibuprofen (ADVIL,MOTRIN) 600 mg tablet TAKE 1 TABLET BY MOUTH EVERY 6 HOURS NEEDED FOR PAIN OR FEVER 07/21/2023 Active sucralfate (CARAFATE) 100 mg/mL suspension take 10 ml by mouth 2 times a day 02/27/2024 Active Encounters Date Type Department Care Team Description 07/01/2024 2:15 PM EST - 07/01/2024 11:59 PM EST [facility] [phone] Chronic pelvic pain in female Discharge Disposition: Home or Self Care 06/20/2024 2:00 PM EST Office Visit Obstetrics and Gynecology - [address] [phone] Shanita Schafer DO Chronic pelvic pain in female (Primary Dx) from Last 3 Months Surgical History Surgery Date Site/Laterality Comments OTHER SURGICAL HISTORY 06/2020 PROCEDURE: ---- OTHER ----; COMMENT: [place]- right leg - infection in leg Medical History Medical History Date Comments History of anxiety 03/13/2015 DX:History of anxiety Seasonal allergies 03/13/2015 DX:Seasonal a llergies; COMMENT: pollen Papanicolaou smear of cervix with atypical squamous cells of undetermined significance (ASC-US) 12/01/2016 DX:Papanicolaou sme ar of cervix with atypical squamous cells of undetermined significance (ASC-US); COMMENT: 2017 pap wnl Obesity (BMI 35.0-39.9 witho ut comorbidity) DX:Obesity (BMI 35.0-39.9 wi thout comorbidity) Type O blood, Rh positive 09/2020 DX:Typ e O blood, Rh positive Family History Medical History Relation Name Comments Diabetes Maternal Grandfather Hypertension Maternal Grandfather Hypertension Maternal Grandmother Arthritis Mother Arthritis Paternal Grandmother Coronary artery disease Paternal Grandmother Diabetes Paternal Grandmother Stroke Paternal Grandmother Relation Name Status Comments Maternal Grandfather Maternal Grandmother Mother Paternal Grandmother Social History Tobacco Use Types Packs/Day Years Used Date Smoking Tobacco: Never Smokeless Tobacco: Never Alcohol Use Standard Drinks/Week Comments No 0 (1 standard drink = 0.6 oz pur e alcohol) Comments No Sex and Gender Information Value Date Recorded Sex Assigned at Not on file Legal Sex Female 7:33 PM EST Gender Identity Not on file Sexual Orientation Not on file Obstetrics History Para Term AB IAB SAB Ectopic Multiple Livin g Live Births 4 4 4 4 4 Date Outcome GA Total Labor Labor/2nd/3rd Weight Sex Type Anes PTL Lucila A1 A5 Name Clin 2015 Term 40w 6d 3430 g (121 oz) F Vag-S pont None N Livin g 7 8 Elba Odell Complications: heart ra te decelerations affecting management of mother Delivery Location:[facility] 2017 Term 40w 0d 3685 g (130 oz) F Vag-S pont None Livin g Lucita Dobbins Complications:None Delivery Location:[facility] 2018 Term 40w 3d 3487 g (123 oz) M Vag-S pont None N Livin g nichole carty Delivery Location:[facility] Comments:insufficient care in third trimester 2020 Term 40w 1d 3374 g (119 oz) F Vag-S pont Salomón Hoover CNM Delivery Location:[facility] Comments:Apg 8-9-9 Last Filed Vital Signs Vital Sign Reading Time Taken Comments Blood Pressure 108/66 06/20/2024 2:12 PM EST Pulse 67 06/20/2024 2:12 PM EST Temperature - - Respiratory Rate 16 06/20/2024 2:12 PM EST Oxygen Saturation - - Inhaled Oxygen Concentration - - Weight 85.2 kg (187 lb 12.8 oz) 06/20/2024 2:12 PM EST Height 170.2 cm (5' 7 ) 06/20/2024 2:12 PM EST Body Mass Index 29.41 06/20/2024 2:12 PM EST Plan of Treatment Health Maintenance Due Date Last Done Comments Hepatitis B Vaccines (2 of 3 - Hep B Twinrix 3-dose series) 01/16/2017 12/19/2016 Depression Screening 04/30/2022 HIV Screening 04/30/2022 Hepatitis C Screening 04/30/2022 Social Influencers of Health Screening 04/30/2022 Cervical Cancer Screening: Pap Smear 10/08/2023 10/07/2020, 03/02/2018, 03/02/2018 COVID-19 Vaccine ( season) 2024 Influenza Vaccine (#1) 2024 02/22/2018, 2016 DTaP,Tdap,and Td Vaccines (5 - Td or Tdap) 12/30/2030 12/30/2020, 08/13/2018, 06/12/2017, Additional history exists Hepatitis A Vaccines Aged Out 12/19/2016 No long er eligible based on patient's age to complete this topic HIB Vaccines Aged Out No longer eligi ble based on patient's age to complete this topic HPV Vaccines Aged Out No longer eligi ble based on patient's age to complete this topic IPV Vaccines Aged Out No longer eligi ble based on patient's age to complete this topic MMR Vaccines Aged Out No longer eligi ble based on patient's age to complete this topic Meningococcal ACWY Vaccine Aged Out N o longer eligible based on patient's age to complete this topic Meningococcal B Vacine Aged Out No lo nger eligible based on patient's age to complete this topic Pneumococcal Vaccine: Pediatrics (0 to 5 Years) and At-Risk Patients (6 to 64 Years) Aged Out No longer eligible based on patient's age to complete this topic RSV Immunization Patients Under 20 months Aged Out No longer eligible based on patient's age to complete this topic Varicella Vaccines Aged Out No longer eligible based on patient's age to complete this topic Procedures Procedure Name Priority Date/Time Associated Diagnosis Comments US DUPLEX ABDOMEN/PELVIS/RETRO COMPLETE Routine 07/01/2024 2:51 PM EST Chronic pelvic pain in female US PELVIS NON OB COMPLETE W TRANSVAGINAL Routine 07/01/2024 2:51 PM EST Chronic pelvic pain in female PAP SMEAR Routine 10/07/2020 from Last 3 Months or Most Recently Relevant to Health Maintenance Results * US Pelvis Non OB Complete w Transvaginal (07/01/2024 2:51 PM EST) Anatomical Region Laterality Modality Body, Pelvis Ultrasound 07/01/2024 3:12 PM EST Impressions 07/01/2024 3:16 PM EST Mildly enlarged uterus. -------- FINAL REPORT -------- Dictated By: James Carlson Dictated Date: 07/01/2024 15:12 ET Assigned Physician: James Carlson Reviewed and Electronically Signed By: James Carlson Signed Date: 07/01/2024 15:16 ET Workstation ID: [id number] Transcribed By: Self Edit Transcribed Date: 07/01/2024 [...] PELVIS: No free fluid. Procedure Note James Calrson MD - 07/01/2024 EXAM(s): US PELVIS NON [...] Signed Date: 07/01/2024 15:16 ET Workstation ID: [id number] Transcribed By: Self Edit Transcribed Date: 07/01/2024 15:12 ET us Shanita Schafer [place] [facility] [place] PROCEDURES Final Resul t * US Duplex Abdomen/Pelvis/Retro Complete (07/01/2024 2:51 PM EST) Anatomical Region Laterality Modality Body Ultrasound 07/01/2024 3:12 PM EST Impressions 07/01/2024 3:16 PM EST Mildly enlarged uterus. -------- FINAL REPORT -------- Dictated By: James Carlson Dictated Date: 07/01/2024 15:12 ET Assigned Physician: James Carlson Reviewed and Electronically Signed By: James Carlson Signed Date: 07/01/2024 15:16 ET Workstation ID: [id number] Transcribed By: Self Edit Transcribed Date: 07/01/2024 [...] uterus. -------- FINAL REPORT -------- Dictated By: Jmaes Carlson Dictated Date: 07/01/2024 15:12 ET Assigned Physician: James Carlson Reviewed and Electronically Signed By: James Carlson Signed Date: 07/01/2024 15:16 ET Workstation ID: [id number] Transcribed By: Self Edit Transcribed Date: 07/01/2024 15:12 ET us Shanita Schafer DO IMG US PROCEDURES Final Resul t * Pap smear (10/07/2020) 10/07/2020 Narrative HISTORICAL TESTING LAB RESULTING AGENCY - 10/12/2020 4:51 PM EDT [id number] THINPREP PAP, IMAGED: NEGATIVE FOR SQUAMOUS INTRAEPITHELIAL LESION AND MALIGNANCY . KEITH ELIAS , JOSEPH(ASCP) (CASE ELECTRONICALLY SIGNED 10 12 2020) ADEQUACY: SATISFACTORY ENDOCERVICAL/TRANSFORMATION ZONE COMPONENT PRESENT. SOURCE: THINPREP PAP HPV IF ASCUS, CERVICAL, IMAGED CLINICAL INFORMATION: HPV IF DIAGNOSIS OF ASCUS. , PAP HX NEG 2017, LMP 04/30/20 [Z12.4, Z34.80] us Chioma LAUREANO LAB CYTOLOGY ORDERABLES Final Result HISTORICAL TESTING LAB RESULTING AGENCY from Last 3 Months or Most Recently Relevant to Health Maintenance Insurance [facility] MEDICAID ADVANTAGE [address] [place] [address] Care Teams Game Operator Relationship Specialty Start Date End Date Sridhar Barraza MD [address] [place] [phone] PCP - General Internal Medicine 06/05/18
--- OUTSIDE RECORDS SUMMARY | 2024-07-19 10:20 | XMS_ITS | Encounter Summary ---
Author Organization [facility] Address [address] [place] [phone] Care Team Providers Care Conference Services Coordinator Name Role Phone Sridhar Barraza MD Primary Care Provider + [phone] Reason for Referral * Imaging (Routine) - Closed Specialty Diagnoses / Procedures Referred By Contac t Referred To Contact Radiology Diagnoses Chronic pelvic pain in female Procedures US Pelvis Non OB Complete w Transvaginal Shanita Schafer DO [address] [place] [address] Phone: tel: fax: [address] Phone: tel: Referral ID Status Reason Start Date Expiration Date Visits Re quested Visits Authorized [id number] Closed 06/20/2024 06/20/2025 1 1 Reason for Visit * Reason Comments Pelvic Pain Encounter Details Date Type Department Care Team ([facility] Contact Info) Description 06/20/2024 2:00 PM EST [facility] [address] [place] [address] Shanita Schafer DO [address] [place] [address] Chronic pelvic pain in female (Primary Dx) Social History Tobacco Use Types Packs/Day Years [...] on file documented as of this encounter Last Filed Vital Signs Vital Sign Reading [...] Mass Index 29.41 06/20/2024 2:12 PM EST documented in this encounter Progress Notes * Shanita Schafer, DO - 06/20/2024 2:00 PM EST Images from the original note were not included. CHIEF COMPLAINT: Pelvic Pain IDENTIFIER:Eliseo Maynard is a 29 y.o. female HPI: Pt presents today with her partner for chronic pelvic pain. She reports this started in December, more on the left than the right and was intermittent. Last week she had an episode of pain after intercourse that was sharp on both sides of the pelvis. Her periods are regular and manageable. She came off control pills two years ago, she and herpartner are not trying to conceive, but if it happens, it happens. She has not concerns for STIs. Denies dysuria, vaginal discharge and intermenstrual bleeding. She had bariatric surgery in [place] in January. ROS: GENERAL: Denies fever, chills and unintentional weight changes : negative for dysuria and frequency LABELLING MACHINE OPERATOR: See HPI PAST MEDICAL HISTORY: OB History Para Term AB Living 4 4 4 4 SAB IAB Ectopic Multiple Live Births 4 # Outcome Date GA Lbr Herminio/2nd Weight Sex Type Anes PTL Lv 4 Term 02/05/21 40w1d 3374 g (119 oz) F Vag-Spont TAMIA Comments: Apg 8-9-9 3 Term 10/24/18 40w3d 3487 g (123 oz) M Vag-Spont None N TAMIA Comments: insufficient care in third trimester 2 Term 09/10/17 40w0d 3685 g (130 oz) F Vag-Spont None TAMIA 1 Term 11/19/15 40w6d 3430 g (121 oz) F Vag-Spont None N TAMIA Complications: heart rate decelerations affecting management of mother There is no problem list on file for this patient. SOCIAL HISTORY: Social History Tobacco Use Smoking status: Never Smokeless tobacco: Never Substance Use Topics Alcohol use: No Drug use: No FAMILY HISTORY: Family History Problem Relation Name Age of Onset Diabetes Paternal Grandmother Arthritis Paternal Grandmother Stroke Paternal Grandmother Coronary artery disease Paternal Grandmother Hypertension Maternal Grandfather Diabetes Maternal Grandfather Hypertension Maternal Grandmother Arthritis Mother I have reviewed the following sections of the chart: active problem list, notes from last encounter MEDICATIONS: Your medication list Accurate as of June 20, 2024 2:31 PM. If you have any questions, ask your nurse or doctor. CONTINUE taking these medications Instructions Last Dose Given Next Dose Due cholecalciferol 125 mcg (5,000 unit) capsule Commonly known as: VITAMIN D-3 Take 1 capsule (5,000 Units total) by mouth 1 (one) time each day. ibuprofen 600 mg tablet Commonly known as: ADVIL,MOTRIN TAKE 1 TABLET BY MOUTH EVERY 6 HOURS NEEDED FOR PAIN OR FEVER pantoprazole 40 mg EC tablet Commonly known as: PROTONIX Take 1 tablet (40 mg total) by mouth 1 (one) time each day. sucralfate 100 mg/mL suspension Commonly known as: CARAFATE take 10 ml by mouth 2 times a day Contraception: Nothing ALLERGIES: Allergies Allergen Reactions Morphine Shortness of breath and Palpitations PHYSICAL EXAM: Visit Vitals BP 108/66 Pulse 67 Resp 16 Ht 1.702 m (67 ) Wt 85.2 kg (187 lb 12.8 oz) LMP 06/07/2024 (Exact Date) BMI 29.41 kg/m?? OB Status Having periods Smoking Status Never BSA 1.97 m?? APPEARANCE:Healthy, alert, active, cooperative, and in no distress A bivalve speculum was used for a portion of the following exam EXTERNAL GENITALIA: normal external genitalia, no erythema, no discharge URETHRA: midline with no erythema, mass or drainage VAGINA: normal mucosa, normal discharge CERVIX: multiparious appearance UTERUS: normal size, contour, position, consistency, mobility, non-tender PSYCH: affect appropriate LABS: ASSESSMENT: 1. Chronic pelvic pain in female PLAN: Reassured Eliseo that her exam today is normal. Will assess anatomy with an US. This has been ordered. Will notify patient of results when available Orders Placed This Encounter Procedures US Pelvis Non OB Complete w Transvaginal Shanita Schafer DO documented in this encounter Plan of Treatment Not on file documented as of this encounter Results * US Pelvis Non OB Complete w Transvaginal (07/01/2024 2:51 PM EST) Anatomical Region Laterality Modality Body, Pelvis Ultrasound 07/01/2024 3:12 PM EST Impressions 07/01/2024 3:16 PM EST Mildly enlarged uterus. -------- FINAL REPORT -------- Dictated By: James Carlosn Dictated Date: 07/01/2024 15:12 ET Assigned Physician: James Carlson Reviewed and Electronically Signed By: James Carlson Signed Date: 07/01/2024 15:16 ET Workstation ID: [id number] Transcribed By: Self Edit Transcribed Date: 07/01/2024 [...] Signed Date: 07/01/2024 15:16 ET Workstation ID: [id number] Transcribed By: Self Edit Transcribed Date: 07/01/2024 15:12 ET Shanita Schafer DO IM US PROCEDURES Final Resul t documented in this encounter Visit Diagnoses Diagnosis Chronic pelvic pain in female- Primary Unspecified symptom associated with female genital organs Chronic pelvic pain in female Unspecified symptom associated with female genital organs documented in this encounter Historical Medications * This list may reflect changes made after this encounter. sucralfate (CARAFATE) 100 mg/mL suspension take 10 ml by mouth 2 times a day 02/27/2024 ibuprofen (ADVIL,MOTRIN) 600 mg tablet TAKE 1 TABLET BY MOUTH EVERY 6 HOURS NEEDED FOR PAIN OR FEVER 07/21/2023 cholecalciferol (VITAMIN D-3) 125 mcg (5,000 unit) capsule Take 1 capsule (5,000 Units total) by mouth 1 (one) time each day. 11/13/2023 pantoprazole (PROTONIX) 40 mg EC tablet Take 1 tablet (40 mg total) by mouth 1 (one) time each day. 02/16/2024 added in this encounter Care Teams Conference Services Coordinator Relationship Specialty Start Date End Date Sridhar Barraza MD [address] [place] [phone] PCP - General Internal Medicine 06/05/18 documented as of this encounter
--- OUTSIDE RECORDS SUMMARY | 2024-07-19 10:21 | XMS_ITS | Continuity of Care Document ---
Author Organization [facility] Address [address] [place] [id number]- Care Team Providers Care Shake Sawyer Name Role Phone Elvira Tran NP, Leena Primary Care Physician Encounter [facility] Date(s): 06/05/24 - 07/05/[address] [address]- Encounter Type: Triage Allergies, Adverse Reactions, Alerts No Known Allergies Medications AutoCPAP 8-20 cm H2O with compliance data followed AutoCPAP 8-20 cm H2O with compliance data followed, See Instructions, # 1 each, Refills 0, Tot. Refills 0, Maintenance, Please use according to Sleep Study [facility] recommendations. Please fit pt for associated mask/supplies., 07/03/23 1:41:00 PM EST, Supply Start Date: 07/03/23 Status: Ordered Quantity: 1.0 Unit: each Repeat number: 1 Indication: Obstructive sleep apnea (adult) (pediatric) AutoCPAP 8-20 cm H2O with compliance data followed. AutoCPAP 8-20 cm H2O with compliance data followed., See Instructions, # 1 each, Refills 0, Tot. Refills 0, Maintenance, Patient recommended to have follow up with sleep study medicine to make sure for proper mask fitting/settings prior to use., 07/03/23 1:40:00 PM EST, Supply Start Date: 07/03/23 Status: Ordered Quantity: 1.0 Unit: each Repeat number: 1 Indication: Sleep apnea, unspecified hydrOXYzine hydrochloride 25 mg oral tablet 1 tablet, By Mouth, 4 times a day, PRN NEEDED FOR ITCHING, # 120 tablet, 1 Refills, [id number], 175.3, cm, 10/28/21 16:12:00 EDT, Height Start Date: 12/23/21 Status: Ordered Quantity: 120.0 Unit: tablet Repeat number: 1 naproxen 500 mg oral tablet 1 tablet, By Mouth, 2 times a day, PRN NEEDED FOR PAIN WITH FOOD, # 60 tablet, 1 Refills, [id number], 175.3, cm, 10/28/21 16:12:00 EDT, Height Start Date: 12/23/21 Status: Ordered Quantity: 60.0 Unit: tablet Repeat number: 1 Please provide fitting for additional supplies needed for MAYRA: pt needds: AutoCPAP 8-20 cm H2O with Please provide fitting for additional supplies needed for MAYRA: pt needds: AutoCPAP 8-20 cm H2O withcompliance data followed. Please fit for masks/related supplies. Thank you., See Instructions, # 1 each, Refills 1, Tot. Refills 1, Maintenance, AutoCPAP 8-20 cm H2O with compliance data followed. Please provide additional fiitted/measured supplies., 05/30/23 12:04:00 PM EST, Supply Start Date: 05/30/23 Status: Ordered Quantity: 1.0 Unit: each Repeat number: 2 Sprintec 0.25 mg-35 mcg oral tablet 1 tablet, By Mouth, Daily, # 84 tablet, 5 Refills, Maintenance, 10/29/21 1:46:00 PM EDT, Tablet, [facility]/pharmacy #[id number], Partial fill upon patient request if the prescription is for a schedule II opioid drug., 1 tablet By Mouth Daily, 175.3, cm, 10/29/21 13:12:00 EDT, Height Start Date: 10/29/21 Status: Ordered Quantity: 84.0 Unit: tablet Repeat number: 6 SUMAtriptan 50 mg oral tablet 1 tablet, By Mouth, Daily, PRN NEEDED FOR MIGRAINE HEADACHE MAY REPEAT X1 IN, MAX 2/DAY., # 9 tablet, 0 Refills, Maintenance, 03/08/23 5:12:00 PM EDT, [facility], 175.3, cm, 12/22/22 10:07:00EDT, Height Start Date: 03/08/23 Stop Date: 03/08/23 Status: Ordered Quantity: 9.0 Unit: tablet Repeat number: 1 ZyrTEC 10 mg oral tablet 1 tablet = 10 mg, By Mouth, Daily, # 30 tablet, 3 Refills, Maintenance, 10/28/21 4:30:00 PM EDT, Tablet, [facility]/pharmacy #[id number], Partial fill upon patient request if the prescription is for a schedule II opioid drug., 175.3, cm, 10/28/21 16:12:00 EDT, Height Start Date: 10/28/21 Status: Ordered Quantity: 30.0 Unit: tablet Repeat number: 4 Problem List Condition Confirmation Course Effective Dates Status Health St atus Informant Headache Confirmed Active Obese class I Confirmed Active Obstructive sleep apnea Confirmed Active Social History Social History Type Response Smoking Status Never (less than 100 in lifetime) entered on: 10/28/21 Sex Sex Representation Female (finding) Patient Care team information Care Team Personnel Name: Leena Aguilar NP Position: [facility] PCO Associate Professional Member Role: PCP Address: [address] [place] [address] Telecom: Care Team Related Persons Name: ADIN VALERO Insurance Providers Guarantor name: MARGO VELAZQUEZ Health Plan Information #: 1 Payer: [facility] Member Number: NA Policy Number: NA Group Number: NA
--- OUTSIDE RECORDS SUMMARY | 2024-07-19 10:21 | XMS_ITS | Data Portability ---
Author Organization [facility] Maternal Medicine, VICKIE OBPAMELA (ProfHerman) Address [address] [facility] [address], [address] [place] [address] Assessment No assessment recorded. Plan of Treatment Reminders Order Date Submit Date Provider Last Modified By Organization Details Last Modified Time Details Appointments None record ed. Lab None record ed. Referral None record ed. Procedures None record ed. Surgeries None record ed. Imaging None record ed. Medication Orders None record ed. Patient TargetsNo targets recorded. Patient InstructionsNo instructions recorded. Reason for Referral None Reported. 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 Medical Equipment None Reported. Vitals None Recorded Social History None recorded. Functional Status None recorded. Mental Status None recorded. Family History Nothing Reported. Medical History No medical history recorded. Gynecological HistoryNo gynecological history recorded. 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 care [id number] screening [id number] [address] 06/22/2015 00:05:19 06/22/2015 00:05:19 Known OR suspected abnormality affecting management of mother 30587226 Finding re lated to [id number] screening [id number] [facility] [address] [facility] [place] [address] 07/17/2015 14:52:17 07/17/2015 14:52:38 Finding related to [id number] Known OR s uspected abnormality affecting management of mother 63482090 screening [id number] Health Concerns Section Related Observation LastModified by Organization Detai ls LastModified Time None Recorded Concern Status LastModified by Organization Details LastModified Time None Recorded Advance Directives Directive None Recorded Payers Encounter Date Sequence Insurance Name Policy Number Policy Vasques Covered Member ID Vasques Member ID Guarantor Name 05/07/2015 1 [place] [facility] Eliseo Maynard [id number] Eliseo Maynard 06/22/2015 1 [place] [facility] Eliseo Maynard [id number] Eliseo Maynard 07/17/2015 1 [place] [facility] Eliseo Maynard [id number] Eliseo Maynard OBGyn Episode No OBEpisode recorded.
== END 2024-07-19 09:44 | disposition home or self-care (01) ==
LOC: HO.HBS 09:43
PROVIDERS: Visit Provider Physician Assistant Surgical
DX: L98.7 Excessive and redundant skin and subcutaneous tissue (principal); Z90.3 Acquired absence of stomach [part of]; Z98.84 Bariatric surgery status
CPT/HCPCS: 99213; G2211

== ENCOUNTER 2024-08-20 09:10 | Outpatient (REF) | payer OTHER, SELFPAY ==
[2024-08-20 09:33] LABS: MANUAL DIFF FLAG NO
[2024-08-20 10:39] LABS: Basophils Percent Auto 0.3 % (0-2); Eosinophils Absolute Auto 0.1 X10*3/uL (0.0-0.4); Eosinophils Percent Auto 2.3 % (0-4); Hematocrit 32.9 % (37.0-47.0); Hemoglobin 11.8 g/dl (12.0-16.0); Imm Gran Abs Auto 0.01 X10*3/uL (0.00-0.03); Imm Gran Pct Auto 0.2 % (0.0-0.4); Lymphocytes Percent Auto 32.5 % (20-40); Mean Corpuscular HGB Conc 35.9 g/dl (31.0-35.0); Mean Corpuscular Hemoglobin 32.5 pg (27.0-33.0); Mean Corpuscular Volume 90.6 fL (80.0-98.0); Mean Platelet Volume 12.2 fL (9.4-12.3); Monocytes Absolute Auto 0.3 X10*3/uL (0.1-1.2); Neutrophils Absolute Auto 3.6 x10*3/uL (2.0-8.3); Neutrophils Percent Auto 59.7 % (45-73); Platelet Count 187 X10*3/uL (160-400); Red Blood Count 3.63 X10*6/uL (4.20-5.50)
[2024-08-20 11:15] LABS: Estimated Average Glucose 85 mg/dL; Hemoglobin A1c % 4.6 % (<6.0); Total Hemoglobin (HGBA1C) 3151.2573 umol/L
[2024-08-20 11:56] LABS: Alanine Aminotransferase 7 U/L (0-31); Albumin Level 4.1 g/dL (3.5-5.0); Alkaline Phosphatase 33 U/L (39-117); Anion Gap 9 (12-20); Aspartate Amino Transferase 12 U/L (5-31); Bilirubin Total 0.5 mg/dL (0.0-1.0); Blood Urea Nitrogen 14 mg/dL (9-16); C Reactive Protein 0.32 mg/dL (< or = 0.50); Calcium 9.1 mg/dL (8.4-10.2); Carbon Dioxide 24 mmol/L (22-29); Chloride 111 mmol/L (96-108); Cholesterol 127 mg/dL (<200); Estimated Glomerular Filt Rate > 60; Glucose Random 80 mg/dL (60-115); HDL Cholesterol 33 mg/dL (>40); Iron 35 mcg/dL (30-160); LDL Cholesterol Calculated 84 mg/dL (<100); Percent Iron Saturation 16 % (15-50); Potassium 3.3 mmol/L (3.3-5.1); Sodium 141 mmol/L (135-145); Total Iron Binding Capacity 216 mcg/dL (228-428); Triglycerides 51 mg/dL (<150); Unsaturated Iron Binding 181 ug/dL
[2024-08-20 12:05] LABS: Folate 9.3 ng/mL (> or = 4.0); Vitamin B12 348 pg/mL (200-900)
[2024-08-20 12:46] LABS: Ferritin 70 ng/mL (10-122); Insulin 4 uU/mL (2-29); Vitamin D 25-OH Total 33.6 ng/mL (>30)
[2024-08-23 00:33] LABS: Zinc 68 mcg/dL (60-130)
[2024-08-23 18:14] LABS: Vitamin A 33 mcg/dL (38-98)
[2024-08-26 06:04] LABS: Vitamin B1 17 nmol/L (8-30)
== END 2024-08-20 09:11 | disposition home or self-care (01) ==
LOC: HO.LAB 09:10
PROVIDERS: Visit Provider Physician Assistant Surgical
DX: K76.0 Fatty (change of) liver, not elsewhere classified (principal); E60 Dietary zinc deficiency; E50.9 Vitamin A deficiency, unspecified; E55.9 Vitamin D deficiency, unspecified; Z98.84 Bariatric surgery status
CPT/HCPCS: 36415; 80053; 80061; 82306; 82607; 82728; 82746; 83036; 83525; 83540; 84425; 84443; 84590; 84630; 85025; 86140

== ENCOUNTER 2024-08-22 13:28 | Outpatient (AMB) | payer OTHER, SELFPAY ==
--- NOTE | 2024-08-22 13:38 | MHC.OFFVISWM ---
VS Expanded 08/22/24 13:41 BP 113/61 Blood Pressure Location Lt brachial Blood Pressure Position Sitting Pulse 61 Pulse Oximetry 100 Height 5 ft 7 in Weight 169 lb 9.6 oz BMI 26.6 Body Fat % 32.9 Body Fat Mass 55.8 Fat Free Mass 113.8 Visceral Fat Rating 4.0 Body Water % 48.1 Body Water Mass 81.6 Muscle Mass/Score 108.0 Basal Metabolic Rate/Score 1,568 Intake Visit Reasons: (OV) PO LSG 02/22/24 Allergies morphine Allergy (Severe, Verified 08/22/24 13:41) Tachycardia, Shakiness HPI Comments Details: This?a?28?yo female who is s/p LSG without hiatal hernia repair on?02/22/2024. Presents for 6 month post op visit. Weight today is 169.6 pounds, with a BMI of 26.6. There has been a 85.6 pound weight loss,(initial weight 255.2 pounds) since starting the program on 11/01/2023 reflecting a 36.4 % total body weight loss and a weight loss of 43.8 pounds since surgery (operative weight 213.4 pounds) reflecting a 24.2 % TBWL since surgery. No complaints of nausea, emesis, abdominal pain or reflux. Reports infrequent but normal bowel movements every 2-3 days and uses stool softeners regularly. Taking celebrate MVI She states she has not gone to the gym over the last 3 weeks and a new work schedule nad stress at home. She has been eating things at work ([employer]) and has not been following the meal plan. She states that she is feeling great and has no complaints. Following the meal plan, wants to change bar for a meal. She is having extra skin of her abdomen and arms. She has had increase in itch and rash to her abdomen. She has not noticed an odor. She had a burning sensation to the abdomen during the rash. She applied ant-itch lotion with improvement. She also states her clothes have not been an issue as she has been using stretchy clothes. Re: her arms, she has extra skin and this has caused clothing to not fit well. Present meal plan includes: Celebrate rebuild 2 scoops, 8-10, 11-1 in 8 oz almond milk 1 scoop 2-4 Meal at 17:00 with 5 forks of protein and 5 forks of vegetables drinking 48 oz ? Exercise routine includes: nothing in the last 3 weeks PF, weights then treadmill 5 days per week, 500 calories. Any post op complications: none MAYRA: resolved DM: never HTN: never Hyperlipidemia: never GERD:?0-5 scale ??0 = no symptoms ??1 = symptoms noticeable but not bothersome 2 =symptoms bothersome but not daily ? 3 = symptoms bothersome and daily 4 = symptoms affect daily activities 5 = symptoms are incapacitating, unable to do daily activities ? How bad is the heartburn: 0 ? Heartburn while lying down: 0 ? Heartburn when standing up: 0 ? Heartburn after meals: 0 ? Does heartburn change your diet: 0 ? Does heartburn wake you up from sleep: 0 ? Do you have difficulty swallowin ? Do you have pain with swallowin ? If you take medicine for your reflux, does this affect your daily life: 0 Satisfaction with present condition - satisfied or not satisfied: dissatisfied [facility] Medical History Pre-op evaluation MAYRA (obstructive sleep apnea) Morbid obesity Surgical History S/P laparoscopic sleeve gastrectomy History of surgery on lower extremity Social History Household Members: Significant Other Household Members Other:: minor children Housing: Apartment Are you a primary anesthesiologist and critical care to a significant other at home: Yes (minor children) Do you presently have visiting nurse or other home services: No Alcohol intake: never Patient Tobacco Use Status: Never used Tobacco Physical Exam Vital Signs: Last Vital Signs Pulse 61 08/22/24 13:41 BP 113/61 08/22/24 13:41 Pulse Ox 100 08/22/24 13:41 BMI result Body Mass Index 26.6 Const General: cooperative and no acute distress Orientation/consciousness: patient oriented x3 Resp Effort & Inspection: normal respiratory effort Auscultation: clear to auscultation bilaterally Cardio Rate: regular rate Rhythm: regular rhythm GI Inspection: Yes normal to inspection and Yes incision (well healed) Palpation (GI): Soft to palpation and no masses Neuro General: patient oriented x3 Assessment & Plan Assessment & Plan (1) S/P laparoscopic sleeve gastrectomy: Code(s): Z98.84 - Bariatric surgery status Category: Surgical Plan: Patient has had a 10 lb weight gain due to no exercise and not following the meal plan over the last 3 weeks. This was due to multiple factors. She states that she is going to get back on track. We will have her follow-up in the office in 6 weeks. Encouraged to send weight is weekly and text with any questions or concerns. Medications: New clotrimazole 1% (Antifungal (clotrimazole)) 1 appl topical BID 45 grams 2RF
[2024-08-22 13:41] VITALS: BP 113/61; PULSE 61; O2SAT 100; BMI 26.6
== END 2024-08-22 14:01 | disposition home or self-care (01) ==
LOC: HO.HBS 13:29
PROVIDERS: Visit Provider Physician Assistant Surgical
DX: L98.7 Excessive and redundant skin and subcutaneous tissue (principal); Z90.3 Acquired absence of stomach [part of]; Z98.84 Bariatric surgery status
CPT/HCPCS: 99213

== ENCOUNTER → 2024-08-22 13:28 | Outpatient (BNVA) | payer OTHER, SELFPAY | PROVIDERS: Visit Provider Physician Assistant Surgical | DX: Z98.84 Bariatric surgery status (principal) | CPT/HCPCS: 99212 ==

== ENCOUNTER 2024-10-02 10:30 | Outpatient (AMB) | payer OTHER, SELFPAY ==
--- NOTE | 2024-10-02 10:37 | MHC.OFFVISWM ---
VS Expanded 10/02/24 10:38 Height 5 ft 7 in Weight 163 lb BMI 25.5 Body Fat % 20.2 Fat Free Mass 130 Visceral Fat Rating 8 Body Water % 54.8 Muscle Mass/Score 122.2 Basal Metabolic Rate/Score 1,647 Intake Visit Reasons: (TV) PO LSG 02/22/24 Associate Broker Required: No Allergies morphine Allergy (Severe, Verified 08/22/24 13:41) Tachycardia, Shakiness Medication List - Last Reconciled 10/02/24 by CATHERINE Cleveland clotrimazole 1% (Antifungal (clotrimazole)) 1 appl topical BID gppqgigawjti-zcu-caij-FA-vit K 45 mg iron- 800 mcg-120 mcg (Bariatric Multivitamins) caps PO vitamin A palmitate 3,000 mcg PO DAILY 90 days HPI Comments Details: This?a?29?yo female who is s/p LSG without hiatal hernia repair on?02/22/2024. Presents for 8 month post op visit. Weight today is 163 pounds, with a BMI of 25.5. There has been a 92.2 pound weight loss,(initial weight 255.2 pounds) since starting the program on 11/01/2023 reflecting a 36.1 % total body weight loss and a weight loss of 50.4 pounds since surgery (operative weight 213.4 pounds) reflecting a 23.6 % TBWL since surgery. No complaints of nausea, emesis, abdominal pain or reflux. Reports infrequent but normal bowel movements every 2-3 days and uses stool softeners regularly. Taking celebrate MVI She states that she is feeling great and has no complaints. Following the meal plan, wants to change bar for a meal. She is having extra skin of her abdomen and arms. She has had increase in itch and rash to her abdomen. She has not noticed an odor. She had a burning sensation to the abdomen during the rash. She applied ant-itch lotion with improvement. She also states her clothes have not been an issue as she has been using stretchy clothes. Re: her arms, she has extra skin and this has caused clothing to not fit well. Present meal plan includes: Celebrate rebuild 2 scoops, 8-10, 11-1 in 8 oz almond milk 1 scoop 2-4 Meal at 5pm with 5 forks of protein and 5 forks of vegetables drinking 48 oz ? Exercise routine includes: PF, weights then treadmill 5 days per week, 220 calories. PFSH Medical History Pre-op evaluation MAYRA (obstructive sleep apnea) Morbid obesity Surgical History S/P laparoscopic sleeve gastrectomy History of surgery on lower extremity Social History Household Members: Significant Other Household Members Other:: minor children Housing: Apartment Are you a primary child care center administrator to a significant other at home: Yes (minor children) Do you presently have visiting nurse or other home services: No Alcohol intake: never Patient Tobacco Use Status: Never used Tobacco Telehealth Telehealth Telehealth Platform: Telephone Location of provider rendering services: practice address Location of patient: address on file Patient Identification confirmed using: Name, : Yes Telehealth method: voice only Patient verbally consented to treatment: Yes Patient verbally consented to billing insurance company: Yes Patient informed of any privacy concerns related to visit: Yes Minutes spent on Phone/Video with Pt.: 15 Assessment & Plan Assessment & Plan (1) S/P laparoscopic sleeve gastrectomy: Code(s): Z98.84 - Bariatric surgery status Category: Surgical Plan: Patient is doing well. She is now back on track. She denies any current active rashes. She is following the meal plan. Recommend increasing exercise as she is able for a goal of 2000 calories per week burned. We will have her return to the office in 2 months. Encouraged to text weekly with weights and with any questions or concerns. Patient is following the right BMI hoang. Encouraged to adjust her meal plan weekly based on her weight loss.
[2024-10-02 10:38] VITALS: BMI 25.5
--- OUTSIDE RECORDS SUMMARY | 2024-10-02 12:05 | XMS_ITS | Data Portability ---
Author Organization [facility] Maternal Medicine, VICKIE OBPAMELA (ProfHerman) Address [address], [address] [place] [address] Assessment No assessment recorded. Plan of Treatment [...] affecting management of mother Active Not Available [facility] 6 03:38:52 Finding related to [id number] Active Not Available [facility] 6 03:38:53 screening Active Not Available Replaced by [facility] 6 03:38:50 Chromosomal abnormality in fetus affecting obstetrical care [id number] Active Not Available Replaced by [facility] 6 03:38:57 Problem Notes None recorded. Medical [...] Code Diagnosis ICD10 Code Diagnosis Note [id number] Bobby Santos MD [address] [address] 05/07/2015 00:31:56 05/07/2015 00:31:56 Chromosomal abnormality in fetus affecting obstetrical care [id number] screening [id number] Bobby Santos MD [address] [place] [address] 06/22/2015 00:05:19 06/22/2015 00:05:19 Known OR suspected abnormality affecting management of mother 20887088 Finding re lated to [id number] screening [id number] [id number] Bobby Santos MD [address] [place] [address] 07/17/2015 14:52:17 07/17/2015 14:52:38 Finding related to [id number] Known OR s uspected abnormality affecting management of mother 07933768 screening [id number] Health Concerns Section Related Observation LastModified by Organization Detai ls LastModified Time None Recorded Concern Status LastModified by Organization Details LastModified Time None Recorded Advance Directives Directive None Recorded Payers Encounter Date Sequence Insurance Name Policy Number Policy Vasques Covered Member ID Vasques Member ID Guarantor Name 05/07/2015 1 [place] [facility] Eliseo Maynard [id number] Eliseo Maynard 06/22/2015 1 [place] [facility] Eliseo Maynard [id number] Eliseo Maynard 07/17/2015 1 [place] [facility] Eliseo Maynard [id number] Eliseo Maynard OBGyn Episode No OBEpisode recorded.
--- OUTSIDE RECORDS SUMMARY | 2024-10-02 12:05 | XMS_ITS | Clinical Summary ---
Author Organization [place] [address] [address] [facility] Building Address [address] [place] [phone] Phone Care Team Providers Care Banking Specialist Name Role Phone Sridhar Barraza MD Primary Care Provider [phone] Allergies Active Allergy Reactions Criticality Noted Date [...] mouth 2 times a day 02/27/2024 Active Surgical History Surgery Date Site/Laterality Comments OTHER [...] 4 4 Date Outcome GA Total Labor Labor//3rd Weight Sex Type Anes PTL Lucila A1 A5 Name Clin 2015 Term 40w 6d 3430 g (121 oz) F Vag-S pont None N Livin g 7 8 Elba Odell Complications: heart ra te decelerations affecting management of mother Delivery Location:[facility] 2017 Term 40w 0d 3685 g (130 oz) F Vag-S pont None Livin g Lucita Dobbins Complications:None Delivery Location:[facility] 2018 Term 40w 3d 3487 g (123 oz) M Vag-S pont None N Livin g nichole carty Delivery Location:[facility] Comments:insufficient care in third trimester 2020 Term 40w 1d 3374 g (119 oz) F Vag-S pont Livin g Benjie Hoover CNM Delivery Location:[facility] Comments:Apg 8-9-9 Last Filed Vital Signs [...] COVID-19 Vaccine ( season) 2024 Influenza Vaccine (Season Ended) 2025 02/22/2018, 04/11/2017 DTaP,Tdap,and Td Vaccines (5 - Td or [...] age to complete this topic Meningococcal B Vaccine Aged Out No l onger eligible based on patient's age to complete [...] Procedure Name Priority Date/Time Associated Diagnosis Comments PAP SMEAR Routine 10/07/2020 from Last 3 Months or Most Recently Relevant to Health Maintenance Results * Pap smear (10/07/2020) 10/07/2020 Narrative HISTORICAL TESTING LAB RESULTING AGENCY - 10/12/2020 4:51 PM EDT [id number] THINPREP PAP, IMAGED: NEGATIVE FOR SQUAMOUS INTRAEPITHELIAL LESION AND MALIGNANCY . JOSEPH JAIN(ASCP) (CASE ELECTRONICALLY SIGNED 10 12 2020) ADEQUACY: SATISFACTORY ENDOCERVICAL/TRANSFORMATION ZONE COMPONENT PRESENT. SOURCE: THINPREP PAP HPV IF ASCUS, CERVICAL, IMAGED CLINICAL INFORMATION: HPV IF DIAGNOSIS OF ASCUS. , PAP HX NEG 2017, LMP 04/30/20 [Z12.4, Z34.80] Chioma Hernandez [facility] LAB CYTOLOGY ORDERABLES Final Result HISTORICAL TESTING LAB RESULTING AGENCY from Last 3 Months or Most Recently Relevant to Health Maintenance Insurance MEDICAID ADVANTAGE Care Teams Banking Specialist Relationship Specialty Start Date End Date Sridhar Barraza MD [address] [place] [phone] PCP - General Internal Medicine 06/05/18
== END 2024-10-02 11:08 | disposition home or self-care (01) ==
LOC: HO.HBS 10:46
PROVIDERS: Visit Provider Physician Assistant Surgical
DX: Z71.3 Dietary counseling and surveillance (principal); Z98.84 Bariatric surgery status
CPT/HCPCS: 99213

== ENCOUNTER 2024-12-09 11:00 | Outpatient (AMB) | payer OTHER, SELFPAY ==
[2024-12-09 10:36] VITALS: BMI 24.7
--- NOTE | 2024-12-09 10:36 | A.OFFVIS_ITS ---
VS Expanded 12/09/24 10:36 Height 5 ft 7 in Weight 158 lb BMI 24.7 Body Fat % 19.4 Fat Free Mass 127.4 Visceral Fat Rating 7 Body Water % 55.3 Muscle Mass/Score 119.8 Basal Metabolic Rate/Score 1,608 Intake Visit Reasons: (TV) PO LSG 02/22/24 Senior Project Architect Required: No Allergies morphine Allergy (Severe, Verified 08/22/24 13:41) Tachycardia, Shakiness Medication List - Last Reconciled 12/09/24 by CATHERINE Cleveland clotrimazole 1% (Antifungal (clotrimazole)) 1 appl topical BID bumtdcbtowum-czk-lhnm-FA-vit K 45 mg iron- 800 mcg-120 mcg (Bariatric Multivitamins) caps PO vitamin A palmitate 3,000 mcg PO DAILY 90 days HPI Comments Details: This?a?29?yo female who is s/p LSG without hiatal hernia repair on?02/22/2024. Presents for 10 month post op visit. Weight today is 158 pounds, with a BMI of 24.7. There has been a 97.2 pound weight loss,(initial weight 255.2 pounds) since starting the program on 11/01/2023 reflecting a 38 % total body weight loss and a weight loss of 55.4 pounds since surgery (operative weight 213.4 pounds) reflecting a 25.9 % TBWL since surgery. No complaints of nausea, emesis, abdominal pain or reflux. Reports infrequent but normal bowel movements every 2- 3 days and uses stool softeners regularly. Taking celebrate MVI She states that she is feeling great and has no complaints. Following the meal plan, wants to change bar for a meal. She is having extra skin of her abdomen and arms. She has had increase in itch and rash to her abdomen. She has not noticed an odor. She had a burning sensation to the abdomen during the rash. She applied prescriptive antifungal ointment with improvement. She also states her clothes have not been an issue as she has been using stretchy clothes. Re: her arms, she has extra skin and this has caused clothing to not fit well. As far as her meal plan goes, she sometimes skips her afternoon shake and finds it slightly inconvenience given the fact that she is frequently at work. We will adjust accordingly Present meal plan includes: Celebrate rebuild 2 scoops, 8-10, 11-1 in 8 oz almond milk 1 scoop 2-4 Meal at 5pm with 5 forks of protein and 5 forks of vegetables drinking 48 oz ? Exercise routine includes: PF, weights then treadmill 5 days per week, 400 calories. [facility] Medical History Pre-op evaluation MAYRA (obstructive sleep apnea) Morbid obesity Surgical History S/P laparoscopic sleeve gastrectomy History of surgery on lower extremity Social History Household Members: Significant Other Household Members Other:: minor children Housing: Apartment Are you a primary zoo caretaker to a significant other at home: Yes (minor children) Do you presently have visiting nurse or other home services: No Alcohol intake: never Patient Tobacco Use Status: Never used Tobacco Telehealth Telehealth Telehealth Platform: Telephone Location of provider rendering services: practice address Location of patient: address on file Patient Identification confirmed using: Name, : Yes Telehealth method: voice only Patient verbally consented to treatment: Yes Patient verbally consented to billing insurance company: Yes Patient informed of any privacy concerns related to visit: Yes Minutes spent on Phone/Video with Pt.: 15 Assessment & Plan Assessment & Plan (1) S/P laparoscopic sleeve gastrectomy: Code(s): Z98.84 - Bariatric surgery status Category: Surgical Plan: Patient is doing well overall and has achieved a healthy weight. Due to her almost 100 lb weight loss, she has excess skin of her abdomen and arms. She has developed rashes there which are being treated with prescriptive antifungal medications. Additionally, given the fact that she is frequently skipping her 2nd shake, we will eliminate this. Meal plan: Celebrate rebuild 2 scoops x2 shakes Meal with 6 forks of protein and 6 forks of vegetables Continue to exercise as she has been doing. Continue antifungal cream as needed Return to clinic end of January for 1 year postop labs and evaluation of rash due to excess skin. Likely is going to need medically necessary skin removal surgery.
--- OUTSIDE RECORDS SUMMARY | 2024-12-09 12:26 | XMS_ITS | Clinical Summary ---
Author Organization [place] [address] [address] [facility] Building Address [address] [place] [phone] Phone Care Team Providers Care Rehabilitation Supervisor Name Role Phone Sridhar Barraza MD Primary Care Provider [phone] Allergies Active Allergy Reactions Criticality Noted Date [...] te decelerations affecting management of mother Delivery Location:[facility] 2017 Term 40w 0d 3685 g (130 oz) F Vag-S pont None Livin g Lucita Dobbins Complications:None Delivery Location:[facility] 2018 Term 40w 3d 3487 g (123 oz) M Vag-S pont None N Livin g nichole carty Delivery Location[facility] Comments:insufficient care in third trimester 2020 Term 40w 1d 3374 g (119 oz) F Vag-S pont Livin g Benjie Hoover CNM Delivery Location:[facility] Comments:Apg 8-9-9 Last Filed Vital Signs [...] Vaccine ( season) 2024 Influenza Vaccine (#1) 2025 02/22/2018, 2016 DTaP,Tdap,and Td Vaccines (5 - [...] 5 Years) and At-Risk Patients (6 to 49 Years) Aged Out No longer eligible based [...] RESULTING AGENCY - 10/12/2020 4:51 PM EDT [id number] THINPREP PAP, IMAGED: NEGATIVE FOR SQUAMOUS INTRAEPITHELIAL LESION AND MALIGNANCY . JOSEPH JAIN(ASCP) (CASE ELECTRONICALLY SIGNED 10 12 2020) ADEQUACY: SATISFACTORY ENDOCERVICAL/TRANSFORMATION ZONE COMPONENT PRESENT. SOURCE: THINPREP PAP HPV IF ASCUS, CERVICAL, IMAGED CLINICAL INFORMATION: HPV IF DIAGNOSIS OF ASCUS. , PAP HX NEG 2017, LMP 04/30/20 [Z12.4, Z34.80] Chioma Hernandez [facility] LAB CYTOLOGY ORDERABLES Final Result HISTORICAL TESTING LAB RESULTING AGENCY from Last 3 Months or Most Recently Relevant to Health Maintenance Insurance MEDICAID ADVANTAGE Care Teams Rehabilitation Supervisor Relationship Specialty Start Date End Date rSidhar Barraza MD [address] [place] [phone] PCP - General Internal Medicine 06/05/18
--- OUTSIDE RECORDS SUMMARY | 2024-12-09 12:26 | XMS_ITS | Data Portability ---
Author Organization [facility] Maternal Medicine, VICKIE OBGYHarpreet (Prof.) Address [address], [address] [place] [address] Assessment No assessment recorded. Plan of Treatment [...] affecting management of mother Active Not Available [facility] 6 03:38:52 Finding related to [id number] Active Not Available [facility] 6 03:38:53 screening Active Not Available [facility] 6 03:38:50 Chromosomal abnormality in fetus affecting obstetrical care 87555424 Active Not Available [facility] 6 03:38:57 Problem Notes None recorded. Medical [...] Code Diagnosis Note 9675 Bobby Santos MD [facility] [address] [place] [address] 05/07/2015 00:31:56 05/07/2015 00:31:56 Chromosomal abnormality in fetus affecting obstetrical care 80833503 screening [id number] Bobby Santos MD [address] [place] [address] 06/22/2015 00:05:19 06/22/2015 00:05:19 Known OR suspected abnormality affecting management of mother 80047869 Finding re lated to 248992217 screening [id number] 90902 Bobby Santos MD [address] [address] 07/17/2015 14:52:17 07/17/2015 14:52:38 Finding related to [id number] Known OR s uspected abnormality affecting management of mother 34362489 screening [id number] Health Concerns Section Related Observation LastModified by Organization Detai ls LastModified Time None Recorded Concern Status LastModified by Organization Details LastModified Time None Recorded Advance Directives Directive None Recorded Payers Insurance Date Sequence Insurance Name Policy Number Policy Vasques Covered Member ID Vasques Member ID Guarantor Name 10/10/2017 1 [place] [facility] Eliseo Maynard [id number] Eliseo Maynard 11/05/2015 1 [place] [facility] Eliseo Maynard [id number] Eliseo Maynard OBGyn Episode No OBEpisode recorded.
== END 2024-12-09 11:22 | disposition home or self-care (01) ==
LOC: HO.HBS 11:19
PROVIDERS: Visit Provider Physician Assistant Surgical
DX: L98.7 Excessive and redundant skin and subcutaneous tissue (principal); Z90.3 Acquired absence of stomach [part of]; Z98.84 Bariatric surgery status
CPT/HCPCS: 99213

== ENCOUNTER 2025-02-21 09:27 | Outpatient (AMB) | payer OTHER, SELFPAY ==
--- NOTE | 2025-02-21 09:10 | A.OFFVIS_ITS ---
VS Expanded 02/21/25 09:13 Height 5 ft 7 in Weight 156 lb BMI 24.4 Intake Visit Reasons: (TV) PO LSG 02/22/24 Allergies morphine Allergy (Severe, Verified 08/22/24 13:41) Tachycardia, Shakiness Medication List - Last Reconciled 02/21/25 by CATHERINE Dodson clotrimazole 1% (Antifungal (clotrimazole)) 1 appl topical BID mltqqniuzsdr-snp-clik-FA-vit K 45 mg iron- 800 mcg-120 mcg (Bariatric Multivitamins) caps PO vitamin A palmitate 3,000 mcg PO DAILY 90 days HPI Comments Details: This?is a?29?yo F who is s/p LSG 02/22/2024. Presents for 1 year post op visit. Weight loss of 2lb since last OV 2mo ago. No complaints of nausea, emesis, abdominal pain or reflux, or constipation. She is having extra skin of her abdomen and arms. She has had increase in itch and rash to her abdomen. She has noticed an odor in the belly button recently. She had a burning sensation to the abdomen during the rash. She applied prescriptive antifungal ointment with improvement. She also states her clothes have not been an issue as she has been using stretchy clothes. Re: her arms, she has extra skin and this has caused clothing to not fit well. Tight sleeves will pinch the skin so she cannot wear these, has to wear loose sleeves at all times. However at this point she is unsure if she wants to pursue skin removal surgery. As far as her meal plan goes, she sometimes skips her afternoon shake and finds it slightly inconvenience given the fact that she is frequently at work. We will adjust accordingly Present meal plan includes: Celebrate rebuild 2 scoops x2 shakes Meal with 6 forks of protein and 6 forks of vegetables -sometimes will have a snack between shakes- will have fruits or vegetables drinking 48 oz taking patricio MVI Exercise routine includes: PF, weights then treadmill 5 days per week, 400 calories Have you been diagnosed with reflux (GERD)? Score 0-5: 0=no symptoms, 1=noticeable but not bothersome (slight or occasional), 2=noticeable, bothersome but not daily, 3=bothersome and daily, 4=affects daily activities, 5=incapacitating, unable to do daily activities How bad is the heartburn: 0 Heartburn when lying down: 0 Heartburn when standing up: 0 Heartburn after meals: 0 Does heartburn change your diet: 0 Does heartburn wake you up from sleep: 0 Do you have difficulty swallowin Do you have pain with swallowin If you take medication for reflux, does this affect your daily life: 0 Total score: 0 PFSH Medical History Pre-op evaluation MAYRA (obstructive sleep apnea) Morbid obesity Surgical History S/P laparoscopic sleeve gastrectomy History of surgery on lower extremity Social History Household Members: Significant Other Household Members Other:: minor children Housing: Apartment Are you a primary medicare coordinator to a significant other at home: Yes (minor children) Do you presently have visiting nurse or other home services: No Alcohol intake: never Patient Tobacco Use Status: Never used Tobacco Telehealth Telehealth Telehealth Platform: Telephone Location of provider rendering services: other Location of patient: address on file Patient Identification confirmed using: Name, : Yes Telehealth method: voice only Patient verbally consented to treatment: Yes Patient verbally consented to billing insurance company: Yes Patient informed of any privacy concerns related to visit: Yes Minutes spent on Phone/Video with Pt.: 16 Assessment & Plan Assessment & Plan (1) S/P laparoscopic sleeve gastrectomy: Code(s): Z98.84 - Bariatric surgery status Category: Surgical (2) Excess skin: Code(s): L98.7 - Excessive and redundant skin and subcutaneous tissue Category: Medical Plan Pt has done very well with weight loss. Achieved healthy BMI. Meal plan and exercise are adequate. She can substitute high protein yogurt with berries, for 1 shake if she would like. This may also help her get adequate protein as well. Labs ordered. She is experiencing issues of excess skin of abdomen resulting in frequent painful, itchy, malodorous rashes which are unrelieved by topical antifungals. She requires the use of special clothing at all times to try to prevent discomfort but her issues have not been completely relieved by conservative measures. Clotrimazole cream refilled per pt request. RTC 3 mo for phone visit, can also book 6 mo visit in person at this time. Orders: Orders TSH reflex Free T4 Today Z98.84 - Bariatric surgery status Vitamin A Today Z98.84 - Bariatric surgery status Vitamin B1 Today Z98.84 - Bariatric surgery status Vitamin B12 and Folate Today Z98.84 - Bariatric surgery status Zinc Today Z98.84 - Bariatric surgery status Lipid Panel Today Z98.84 - Bariatric surgery status Complete Blood Count Auto Diff Today Z98.84 - Bariatric surgery status Hemoglobin A1c Today Z98.84 - Bariatric surgery status Ferritin Today Z98.84 - Bariatric surgery status Vitamin D 25-OH Total Today Z98.84 - Bariatric surgery status C Reactive Protein Today Z98.84 - Bariatric surgery status Comprehensive Met. Panel Today Z.84 - Bariatric surgery status IRON PROFILE Today Z.84 - Bariatric surgery status Insulin Today Z98.84 - Bariatric surgery status Medications: Refilled clotrimazole 1% (Antifungal (clotrimazole)) 1 appl topical BID 45 grams 2RF
[2025-02-21 09:13] VITALS: BMI 24.4
--- OUTSIDE RECORDS SUMMARY | 2025-02-21 10:21 | XMS_ITS | Clinical Summary ---
Author Organization [place] [address] [address] [facility] Building Address [address] [place] [phone] Phone Care Team Providers Care Color Depositing Machine Tender Name Role Phone Sridhar Barraza MD Primary Care Provider [phone] Allergies Active Allergy Reactions Criticality Noted Date [...] te decelerations affecting management of mother Delivery Location:[facility] 2017 Term 40w 0d 3685 g (130 oz) F Vag-S pont None Livin g Lucita Dobbins Complications:None Delivery Location:[facility] 2018 Term 40w 3d 3487 g (123 oz) M Vag-S pont None N Livin g nichole carty Delivery Location:[facility] Comments:insufficient care in third trimester 2020 Term 40w 1d 3374 g (119 oz) F Vag-S pont Livin g Benjie Hoover CNM Delivery Location:[facility] Comments:Apg 8-9-9 Last Filed Vital Signs Vital [...] Hep B Twinrix 3-dose series) 01/16/2017 12/19/2016 HIV Screening 04/30/2022 Hepatitis C Screening 04/30/2022 Social Influencers of Health Screening 04/30/2022 Cervical Cancer Screening: Pap Smear 10/08/2023 10/07/2020, 03/02/2018, 03/02/2018 Depression Screening 05/29/2024 COVID-19 Vaccine ( season) 2025 Influenza Vaccine (#1) 2025 02/22/2018, 2016 DTaP,Tdap,and [...] RESULTING AGENCY - 10/12/2020 4:51 PM EDT [id number] THINPREP PAP, IMAGED: NEGATIVE FOR SQUAMOUS INTRAEPITHELIAL LESION AND MALIGNANCY . JOSEPH JAIN(ASCP) (CASE ELECTRONICALLY SIGNED 10 12 2020) ADEQUACY: SATISFACTORY ENDOCERVICAL/TRANSFORMATION ZONE COMPONENT PRESENT. SOURCE: THINPREP PAP HPV IF ASCUS, CERVICAL, IMAGED CLINICAL INFORMATION: HPV IF DIAGNOSIS OF ASCUS. , PAP HX NEG 2017, LMP 04/30/20 [Z12.4, Z34.80] Chioma Hernandez [facility] CYTOLOGY ORDERABLES Final Result HISTORICAL TESTING LAB RESULTING AGENCY from Last 3 Months or Most Recently Relevant to Health Maintenance Insurance MEDICAID ADVANTAGE Care Teams Color Depositing Machine Tender Relationship Specialty Start Date End Date Sridhar Barraza MD [address] [place] [phone] PCP - General Internal Medicine 06/05/18
== END 2025-02-21 09:32 | disposition home or self-care (01) ==
LOC: HO.HBS 09:27
PROVIDERS: Visit Provider Physician Assistant Surgical
DX: L98.7 Excessive and redundant skin and subcutaneous tissue (principal); Z71.3 Dietary counseling and surveillance; Z90.3 Acquired absence of stomach [part of]; Z98.84 Bariatric surgery status
CPT/HCPCS: 98013

== ENCOUNTER 2025-02-28 09:05 | Outpatient (REF) | payer OTHER, SELFPAY ==
--- OUTSIDE RECORDS SUMMARY | 2025-02-28 09:32 | XMS_ITS | Clinical Summary ---
Author Organization [place] [address] [address] [facility] Building Address [address] [place] [phone] Phone Care Team Providers Care Flow Machine Operator Name Role Phone Sridhar Barraza MD Primary Care Provider [phone] Allergies Active Allergy Reactions Criticality Noted Date [...] te decelerations affecting management of mother Delivery Location:[facility] 2017 Term 40w 0d 3685 g (130 oz) F Vag-S pont None Livin g Lucita Dobbins Complications:None Delivery Location:[facility] 2018 Term 40w 3d 3487 g (123 oz) M Vag-S pont None N Livin g nichole carty Delivery Location:[facility] Comments:insufficient care in third trimester 2020 Term 40w 1d 3374 g (119 oz) F Vag-S pont Livin g Benjie Hoover CNM Delivery Location:[facility] Comments:Apg 8-9-9 Last Filed Vital Signs Vital [...] Hep B Twinrix 3-dose series) 01/16/2017 12/19/2016 HPV Vaccines (1 - 3-dose SCDM series) 2021 HIV Screening 04/30/2022 Hepatitis C Screening 04/30/2022 Social Influencers of Health Screening 04/30/2022 Cervical Cancer Screening: Pap Smear 10/08/2023 10/07/2020, 03/02/2018, 03/02/2018 Depression Screening 05/29/2024 COVID-19 Vaccine ( season) 2025 Influenza Vaccine (#1) 2025 02/22/2018, 2016 DTaP,Tdap,and Td Vaccines (5 - Td or Tdap) 12/30/2030 12/30/2020, 08/13/2018, 06/12/2017, Additional history exists RSV Immunization Adult Patients (1 - 1-dose 75+ series) 2069 Hepatitis A Vaccines Aged Out 12/19/2016 No [...] RESULTING AGENCY - 10/12/2020 4:51 PM EDT [id number] THINPREP PAP, IMAGED: NEGATIVE FOR SQUAMOUS INTRAEPITHELIAL LESION AND MALIGNANCY . KEITH ELIAS , JOSEPH(ASCP) (CASE ELECTRONICALLY SIGNED 10 12 2020) ADEQUACY: SATISFACTORY ENDOCERVICAL/TRANSFORMATION ZONE COMPONENT PRESENT. SOURCE: THINPREP PAP HPV IF ASCUS, CERVICAL, IMAGED CLINICAL INFORMATION: HPV IF DIAGNOSIS OF ASCUS. , PAP HX NEG 2017, LMP 04/30/20 [Z12.4, Z34.80] Chioma [facility] LAB CYTOLOGY ORDERABLES Final Result HISTORICAL TESTING LAB RESULTING AGENCY from Last 3 Months or Most Recently Relevant to Health Maintenance [place] [address] [place] [address] MEDICAID ADVANTAGE Care Teams Flow Machine Operator Relationship Specialty Start Date End Date Sridhar Barraza MD [address] [place] [phone] PCP - General Internal Medicine 06/05/18
[2025-02-28 09:37] LABS: Hematocrit 32.7 % (37.0-47.0); Hemoglobin 11.6 g/dl (12.0-16.0); Imm Gran Abs Auto 0.01 X10*3/uL (0.00-0.03); Imm Gran Pct Auto 0.3 % (0.0-0.4); Lymphocytes Absolute Auto 0.9 X10*3/uL (1.2-4.9); MANUAL DIFF FLAG NO; Mean Corpuscular HGB Conc 35.5 g/dl (31.0-35.0); Mean Corpuscular Hemoglobin 32.3 pg (27.0-33.0); Mean Corpuscular Volume 91.1 fL (80.0-98.0); NRBC Abs Auto 0.020 X10*3/uL (0.0-0.012); NRBC Pct Auto 0.5 /100WBC (0.0-0.2); Platelet Count 185 X10*3/uL (160-400); Red Blood Count 3.59 X10*6/uL (4.20-5.50); White Blood Count 3.7 X10*3/uL (4.8-10.8)
[2025-02-28 11:27] LABS: Alanine Aminotransferase 20 U/L (0-31); Albumin Level 4.5 g/dL (3.5-5.0); Alkaline Phosphatase 27 U/L (39-117); Anion Gap 10 (12-20); Aspartate Amino Transferase 52 U/L (5-31); Blood Urea Nitrogen 14 mg/dL (9-16); Calcium 9.2 mg/dL (8.4-10.2); Carbon Dioxide 26 mmol/L (22-29); Chloride 109 mmol/L (96-108); Cholesterol 138 mg/dL (<200); Estimated Glomerular Filt Rate > 60; HDL Cholesterol 42 mg/dL (>40); Iron 144 mcg/dL (30-160); Percent Iron Saturation 57 % (15-50); Potassium 3.2 mmol/L (3.3-5.1); Sodium 142 mmol/L (135-145); Total Iron Binding Capacity 253 mcg/dL (228-428); Total Protein 7.3 g/dL (6.5-8.0); Triglycerides 49 mg/dL (<150); Unsaturated Iron Binding 109 ug/dL
[2025-02-28 11:29] LABS: Ferritin 42 ng/mL (10-122)
[2025-02-28 11:38] LABS: Folate 10.7 ng/mL (> or = 4.0); Vitamin B12 389 pg/mL (200-900)
== END 2025-02-28 09:06 | disposition home or self-care (01) ==
LOC: HO.LAB 09:05
PROVIDERS: Visit Provider Physician Assistant Surgical
DX: Z98.84 Bariatric surgery status (principal)
CPT/HCPCS: 36415; 80053; 80061; 82306; 82607; 82728; 82746; 83036; 83525; 83540; 84425; 84443; 84590; 84630; 85025; 86140

== ENCOUNTER 2025-04-04 09:13 | Outpatient (REF) | payer OTHER, SELFPAY ==
[2025-04-04 10:05] LABS: Anion Gap 12 (12-20); Blood Urea Nitrogen 13 mg/dL (9-16); Calcium 9.0 mg/dL (8.4-10.2); Carbon Dioxide 26 mmol/L (22-29); Chloride 107 mmol/L (96-108); Estimated Glomerular Filt Rate > 60; Magnesium 1.9 mg/dL (1.6-2.6); Potassium 4.0 mmol/L (3.3-5.1); Sodium 141 mmol/L (135-145)
--- OUTSIDE RECORDS SUMMARY | 2025-04-04 10:21 | XMS_ITS | Clinical Summary ---
Author Organization [place] [address] [address] [facility] Building Address [address] [place] [phone] Phone Care Team Providers Care Manager Of Application Development Name Role Phone Sridhar Barraza MD Primary Care Provider [phone] Allergies Active Allergy Reactions Criticality Noted Date [...] te decelerations affecting management of mother Delivery Location:[facility] 2017 Term 40w 0d 3685 g (130 oz) F Vag-S pont None Livin g Lucita Dobbins Complications:None Delivery Location:[facility] 2018 Term 40w 3d 3487 g (123 oz) M Vag-S pont None N Livin g nichole carty Delivery Location:[facility] Comments:insufficient care in third trimester 2020 Term 40w 1d 3374 g (119 oz) F Vag-S pont Livin g Benjie Hoover CNM Delivery Location:[facility] Comments:Apg 8-9-9 Last Filed Vital Signs [...] RESULTING AGENCY - 10/12/2020 4:51 PM EDT [id number] THINPREP PAP, IMAGED: NEGATIVE FOR SQUAMOUS INTRAEPITHELIAL [...] Most Recently Relevant to Health Maintenance [place] [address] MEDICAID ADVANTAGE Care Teams Manager Of Application Development Relationship Specialty Start Date End Date Sridhar Barraza MD [address] [place] [phone] PCP - General Internal Medicine 06/05/18
== END 2025-04-04 09:14 | disposition home or self-care (01) ==
LOC: HO.LAB 09:13
PROVIDERS: Visit Provider Physician Assistant Surgical
DX: E87.6 Hypokalemia (principal)
CPT/HCPCS: 36415; 80048; 83735; 84100

== ENCOUNTER 2025-05-12 11:50 | Outpatient (AMB) | payer OTHER, SELFPAY ==
--- NOTE | 2025-05-12 11:42 | MHC.OFFVISWM ---
VS Expanded 05/12/25 11:45 Height 5 ft 7 in Weight 158 lb BMI 24.7 Body Fat % 19.5 Intake Visit Reasons: Phone - PO LSG 02/22/24 Allergies morphine Allergy (Severe, Verified 08/22/24 13:41) Tachycardia, Shakiness Medication List - Last Reconciled 05/12/25 by CATHERINE Dodson cholecalciferol (vitamin D3) 25 mcg PO DAILY clotrimazole 1% (Antifungal (clotrimazole)) 1 appl topical BID uibuwbwdomdn-eux-gkng-FA-vit K 45 mg iron- 800 mcg-120 mcg (Bariatric Multivitamins) caps PO potassium chloride ER (K-Tab) 20 mEq PO BID vitamin A palmitate 3,000 mcg PO DAILY 90 days zinc gluconate 30 mg PO DAILY HPI Comments Details: This is a 29 yo F who is s/p LSG 02/22/2024. Presents for 1 year 3 mo post op visit. Weight loss of 2lb since last OV 2mo ago. No complaints of nausea, emesis, abdominal pain or reflux, or constipation. She is taking vitamins and additional OTC supplements. She is having extra skin of her abdomen. She has had increase in itch and rash to her abdomen. She has noticed an odor in the belly button recently and itchy painful rash. She had a burning sensation to the abdomen during the rash. She has to clean more frequently to avoid this odor. She applied prescriptive antifungal ointment with some improvement but not complete resolution. She also states her clothes have been an issue and she has been using stretchy clothes, cannot wear tight clothing due to discomfort. Pants have to be folded down especially when she sits down. With movement, she experiences increased itching as well. Re: her arms, she has extra skin and this has caused clothing to not fit well. Tight sleeves will pinch the skin so she cannot wear these, has to wear loose sleeves at all times. However at this point she is unsure if she wants to pursue skin removal surgery. Present meal plan includes: Celebrate rebuild half scoop x2 shakes 1 Celebrate bar Meal with 4 forks of protein and 4 forks of vegetables -sometimes will have a snack between shakes- will have fruits or vegetables drinking 48 oz taking patricio MVI Exercise routine includes: PF, weights then treadmill 5 days per week, 400 calories [facility] Medical History Pre-op evaluation MAYRA (obstructive sleep apnea) Morbid obesity Surgical History S/P laparoscopic sleeve gastrectomy History of surgery on lower extremity Social History Household Members: Significant Other Household Members Other:: minor children Housing: Apartment Are you a primary children's zoo caretaker to a significant other at home: Yes (minor children) Do you presently have visiting nurse or other home services: No Alcohol intake: never Patient Tobacco Use Status: Never used Tobacco Telehealth Telehealth Telehealth Platform: Telephone Location of provider rendering services: practice address Location of patient: address on file Patient Identification confirmed using: Name, : Yes Telehealth method: voice only Patient verbally consented to treatment: Yes Patient verbally consented to billing insurance company: Yes Patient informed of any privacy concerns related to visit: Yes Minutes spent on Phone/Video with Pt.: 12 Assessment & Plan Assessment & Plan (1) S/P laparoscopic sleeve gastrectomy: Code(s): Z98.84 - Bariatric surgery status Category: Surgical (2) Excess skin: Code(s): L98.7 - Excessive and redundant skin and subcutaneous tissue Category: Medical Plan Pt can use aggressive plan on Zoodig hoang if she would like to lose additional weight. Exercise is to goal. She is experiencing issues of excess skin of abdomen resulting in frequent painful, itchy, malodorous rashes which are unrelieved by topical antifungals. In addition she is experiencing limitations/discomfort in activities of daily living, including walking. She requires the use of special clothing at all times to try to prevent discomfort but her issues have not been completely relieved by conservative measures. Will repeat labs at next visit. RTC August 13 9:15am in office visit.
[2025-05-12 11:45] VITALS: BMI 24.7
== END 2025-05-12 11:59 | disposition home or self-care (01) ==
LOC: HO.HBS 11:50
PROVIDERS: Visit Provider Physician Assistant Surgical
DX: L98.7 Excessive and redundant skin and subcutaneous tissue (principal); Z90.3 Acquired absence of stomach [part of]; Z98.84 Bariatric surgery status
CPT/HCPCS: 99213; G2211